=== PATIENT | male | born 1940 | race Caucasian/White ===

== ENCOUNTER 2019-04-20 09:39 | Emergency (ER) | payer MEDICARE, SELFPAY ==
--- NOTE | ~2019-04-20 | CT_ITS ---
EXAMINATION: CT abdomen pelvis w con DATE: 04/20/2019 12:24 INDICATION: Abdomen pain TECHNIQUE: Computed tomography (CT) of the abdomen and pelvis was performed with 100 cc Omnipaque 350 intravenous contrast. The dose-length product was 1389.24 mGy-cm. Automated exposure control and ite rative reconstruction technique were employed. COMPARISON: CT dated 09/11/2017. FINDINGS: There is bibasilar atelectasis/scarring. No significant pleural or pericardial effusion. Th ere is a laparoscopic adjustable gastric band. Fatty infiltration of the liver. Calcified granulomas of the spleen. There is atrophy of the pancreas. There are multiple simple and complicated cyst of th e left kidney with stable appearance to rim calcified cyst which is slightly exophytic from the left kidney posteriorly. Gallbladder is present. There is mild thickening of the distal aspect of the stom ach and proximal duodenum with mild surrounding fatty infiltration. Adrenal glands within normal limits. Nonobstructive bowel gas pattern. Small fat-containing umbilical hernia. No abnormal pelvic masses or fluid collections. Colonic diverticulosis without diverticuliti s. No free air or free fluid. Moderate degenerative changes of the hips and lumbar spine. IMPRESSION: 1. Mild thickening with subtle inflammatory change surrounding the distal aspect of the stomach and d uodenum, suspicious for gastritis/duodenitis, most likely infectious or inflammatory. Reviewed, dictated and finalized at location A. IMPRESSION: 1. Mild thickening with subtle inflammatory change surrounding the distal aspec t of the stomach and duodenum, suspicious for gastritis/duodenitis, most likely infectious or inflammatory.
--- NOTE | ~2019-04-20 | US_ITS ---
EXAMINATION: US right upper quadrant DATE: 04/20/2019 11:10 INDICATION: Right upper quadrant abdominal pain. TECHNIQUE: Multiple grayscale and Doppler ultrasound images of the abdomen were obtained. COMPARISON: CT abdomen and pelvis 09/11/2017 FINDINGS: The visualized portions of the head, body, and tail of the pancreas are normal. There is di ffuse hepatic steatosis. There is normal flow in main portal vein. The gallbladder is normal in size. No gallstones or gallbladder wall thickening. There was no sonographic Smith sign. The common duct is normal and measures 5 mm. IMPRESSION: 1. Diffuse hepatic steatosis. Reviewed, dictated and finalized at location A.
[2019-04-20 09:41] VITALS: BP 163/62; PULSE 98; RESP 20; TEMP 36.6; O2SAT 95
[2019-04-20 09:57] LABS: Basophils Absolute Auto 0.1 K/mm3 (0.0-0.1); Eosinophils Absolute Auto 0.2 K/mm3 (0-0.3); Eosinophils Percent Auto 1.7 % (0-4.4); Hematocrit 45.3 % (42.0-52.0); Immature Granulocyte Absolute 0.05 K/mm3 (0.00-0.031); Immature Granulocyte Percent A 0.4 % (0-0.5); Lymphocytes Absolute Auto 2.88 K/mm3 (0.9-3.2); Lymphocytes Percent Auto 20.4 % (18.3-44.2); Mean Corpuscular HGB Conc 33.1 g/dl (32-36); Mean Corpuscular Hemoglobin 31.8 pg (26-34); Mean Corpuscular Volume 96.2 fl (80-100); Mean Platelet Volume 10.4 fl (7.4-10.4); Monocytes Absolute Auto 0.8 K/mm3 (0.1-0.6); Monocytes Percent Auto 5.4 % (2.6-8.5); Neutrophils Absolute Auto 10.1 K/mm3 (1.3-6.7); Neutrophils Percent Auto 71.1 % (45.5-73.1); Platelet Count Result 275 k/mm3 (150-375); Red Blood Count 4.71 M/mm3 (4.6-6.20); Red Cell Distribution Width 12.9 % (11.5-14.5); White Blood Count 14.1 K/mm3 (4.5-10.0)
[2019-04-20 10:09] LABS: Alanine Aminotransferase 19 U/L (4-50); Albumin Level 4.1 g/dL (3.5-5.1); Alkaline Phosphatase 74 U/L (38-126); Aspartate Amino Transferase 22 U/L (17-59); Bilirubin,Total 0.6 mg/dL (0.2-1.3); Blood Urea Nitrogen 15 mg/dL (9-20); Calcium 9.8 mg/dL (8.4-10.2); Carbon Dioxide 28 mmol/L (22-30); Chloride 101 mmol/L (98-107); Estimated CRCL calculation 64 ml/min; Estimated Glomerular Filt Rate > 60; Glucose 197 mg/dL (75-110); Lipase 84 U/L (23-300); Potassium 4.1 mmol/L (3.4-5.0); Sodium 140 mmol/L (137-145)
--- NOTE | 2019-04-20 10:47 | ED.ABDPAIN ---
HPI - Abdominal Pain General Chief Complaint: Abdominal Pain Stated Complaint: Abd pain Time Seen by Provider: 04/20/19 10:41 Source: patient Mode of arrival: ambulatory Limitations: no limitations History of Present Illness HPI narrative: Pt is a 78 y/o male who presents to the ED with c/o intermittent RUQ ABD pain that started yesterday. He reports vomiting x2 yesterday. Pt denies nausea in the ED bed or a fever. He denies any aggravating or alleviating factors. Pt has a H/O a lap band surgery. He has not taken any pain medications. MD elicited complaint: abdominal pain Onset (ago): day(s) (1) Pain Consistency: intermittent Location: RUQ Exacerbating factors: nothing Relieving factors: nothing Associated symptoms: vomiting Related Data Home Medications Medication Instructions Recorded Confirmed fesoterodine [Toviaz] 4 mg PO DAILY 02/05/19 03/16/19 lisinopril 20 mg PO BID 02/05/19 03/16/19 magnesium 200 mg PO DAILY 02/05/19 03/16/19 omega 2-voa-ste-fish oil [Fish Oil] 1,000 cap PO DAILY 02/05/19 03/16/19 simvastatin 40 mg PO DAILY 02/05/19 03/16/19 Allergies Allergy/AdvReac Type Severity Reaction Status Date / Time citalopram Allergy Unknown Unknown Verified 03/16/19 08:30 hydrochlorothiazide Allergy Unknown Dizziness Verified 03/16/19 08:30 Review of Systems Review of Systems: All systems reviewed & are unremarkable except as noted in HPI and below Constitutional: Constitutional: Denies fever(s) Gastrointestinal: Gastrointestinal: Reports abdominal pain (RUQ), Denies diarrhea, Denies nausea and Reports vomiting PMF Past Medical History Medical History Benign prostatic hyperplasia with lower urinary tract symptoms Bronchitis Cerebrovascular accident (CVA) Chronic bilateral low back pain with bilateral sciatica Chronic fatigue Chronic obstructive pulmonary disease Essential (primary) hypertension Mixed hyperlipidemia GREG on CPAP Peripheral arterial disease Type 2 diabetes mellitus Vitamin D deficiency Surgical History Surgical History H/O cataract extraction H/O hernia repair History of appendectomy History of total knee replacement Social History Social History Smoking status: Never smoker Second hand tobacco smoke exposure: No Alcohol intake: never Exam Narrative: Exam Narrative: APPEARANCE: No acute distress, nontoxic, resting in bed HEENT: Normocephalic, atraumatic, OMM RESPIRATORY: No respiratory distress, clear to auscultation bilaterally with no rhonchi wheezing or rales CARDIOVASCULAR: RRR s murmur ABDOMINAL: Soft, nondistended, tender palpation in epigastric and right upper quadrant, no tenderness left upper quadrant, right lower quadrant left lower quadrant, no rebound or guarding MUSCULOSKELETAl: Moves all extremities. No clubbing, cyanosis or edema. NEURO: Awake and alert. Following commands, speech normal, no focal deficits SKIN:: Warm, dry. Normal Color PSYCHIATRIC: Normal affect/mood Course Course Emergency Course: Patient states that they are feeling much better at this time. States abdominal pain has resolved. Repeat abdominal exam shows the patient's abdomen to be soft and nontender. Discussed with patient results of workup and diagnosis. Discussed need for follow-up with primary care physician, reasons to return to the emergency department in proper use of medication. Patient understands and agrees to current treatment plan Consultations Consultation #1: Discussed case with Dr. Perdomo's PA and will follow up with pt. Date: 04/20/19 Time: 12:58 Vital Signs Vital signs: Vital Signs Temperature 97.9 F 04/20/19 09:41 Pulse Rate 98 04/20/19 09:41 Respiratory Rate 20 04/20/19 09:41 Blood Pressure 163/62 H 04/20/19 09:41 Pulse Oximetry 95 04/20/19 09:41 Temperature 97.9 F 04/20/19 09:41 Pulse Rate 88
[2019-04-20 11:06] LABS: Add Urine Microscopic? YES; Appearance Urine Cloudy (Clear); Bacteria Urine 1+ /hpf; Bilirubin Urine Negative (Negative); Blood Urine 3+ (Negative); Color Urine Yellow (Yellow); Glucose Urine UA Negative (Negative); Ketones Urine Trace mg/dL (Negative); Leukocyte Esterase Ur 2+ LEU/UL (Negative); Mucus Urine Few /lpf; Nitrate Urine Negative (Negative); Protein Urine 2+ mg/dL (Negative); RBC Urine >75 /hpf (0-2); Specific Grav Ur 1.027 (1.001-1.035); Squamous Epithelial Cell Urine Rare /hpf (Few); Urobilinogen Urine Negative mg/dL (<2.0); WBC Clumps Urine Present /HPF; WBC Urine >75 /hpf
[2019-04-20 12:03] VITALS: BP 162/97; PULSE 88; RESP 22; O2SAT 96
[2019-04-20 13:52] LABS: Lactic Acid Reflex 1.5 mmol/L (0.7-2.1)
[2019-04-20] MEDS: PANTOPRAZOLE SODIUM IV 40 MG VIAL IV PUSH (14:20)
[2019-04-20 14:25] VITALS: BP 154/80; PULSE 89; RESP 17; O2SAT 96
== END 2019-04-20 14:25 | disposition home or self-care (01) ==
PROVIDERS: Emergency Provider Emergency Medicine; PCP Family Medicine
DX: K29.70 Gastritis, unspecified, without bleeding (principal); N39.0 Urinary tract infection, site not specified; N40.1 Benign prostatic hyperplasia with lower urinary tract symptoms; Z86.73 Personal history of transient ischemic attack (TIA), and cerebral infarction without residual deficits; J44.9 Chronic obstructive pulmonary disease, unspecified; I10 Essential (primary) hypertension; E78.2 Mixed hyperlipidemia; G47.33 Obstructive sleep apnea (adult) (pediatric); E11.9 Type 2 diabetes mellitus without complications; E55.9 Vitamin D deficiency, unspecified; Z96.653 Presence of artificial knee joint, bilateral
CPT/HCPCS: 36415; 74177; 76705; 80053; 81001; 83605; 83690; 85025; 87077; 87086; 87088; 87186; 96365; 96375; 99284; A9270; C9113; J0131; J0696; Q9967

== ENCOUNTER 2019-06-10 09:57 | Outpatient (CLI) | payer MEDICARE, SELFPAY ==
--- NOTE | ~2019-06-10 | MR_ITS ---
EXAMINATION: MR brain/brain stem wo/w con DATE: 06/10/2019 11:17 INDICATION: Cerebral infarction, unspecified. Right arm numbness. TECHNIQUE: Magnetic resonance imaging (MRI) of the brain and brainstem was performed without and with 20 mL MultiHance intravenous contrast. Sequences included sagittal and axial T1-weighted FSE, axial diffusion-weighted FS EPI, axial T2*-weighted GRE, axial T2-weighted FLAIR Propeller, and axial T2-we ighted Propeller. Postcontrast sequences included axial and coronal T1-weighted FSE. Apparent diffusi on coefficient (ADC) maps were created. COMPARISON: Brain MRI 04/14/2018, 01/03/2017 FINDINGS: There are scattered areas of nonspecific increased T2-weighted signal intensity in the cere bral white matter and bucky. There is an old infarct involving the left internal capsule and left lent iform nucleus. There is no intracranial hemorrhage, acute infarction, or abnormal intracranial mass l esion. The ventricles are normal in size. There are likely changes of ocular lens replacement surgeri es. There is mild mucosal thickening in the ethmoid sinuses. The mastoid air cells are normal. IMPRESSION: 1. Old infarct involving the left internal capsule and left lentiform nucleus. 2. Stable mild nonspecific cerebral white matter disease and pontine disease, which likely represents chronic small vessel ischemic disease. Reviewed, dictated and finalized at location A. IMPRESSION: 1. Old infarct involving the left internal capsule and left lentiform nucleus. 2. Stable mild nonspecific cerebral white matter disease and pontine disease, w hich likely represents chronic small vessel ischemic disease.
[2019-06-10 10:47] LABS: Estimated Glomerular Filt Rate > 60
== END 2019-06-10 09:58 | disposition home or self-care (01) ==
PROVIDERS: PCP Family Medicine; Visit Provider Physician Assistant Medical
DX: I63.9 Cerebral infarction, unspecified (principal); R29.6 Repeated falls; R20.0 Anesthesia of skin; R20.2 Paresthesia of skin; R90.82 White matter disease, unspecified
CPT/HCPCS: 36415; 70553; A9577

== ENCOUNTER 2019-10-24 10:32 | Observation (INO) | payer MEDICARE, SELFPAY ==
[2019-10-24] VITALS (14 sets, daily range): BP systolic 142–208; BP diastolic 62–87; PULSE 70–102; RESP 18–20; TEMP 35.8–36.3; O2SAT 93–99; BMI 40.9
--- NOTE | ~2019-10-24 | XR_ITS ---
XR chest 2V 10/24/2019 11:11 Indication: Chest pain Procedure: AP and lateral views of the chest Comparison: Comparison to multiple prior studies sequentially, with oldest reviewed study dated 12/13. Findings: Heart size normal. Left basilar infiltrates may represent atelectasis, scarring and/or developing pne umonia. No pleural effusion. No acute osseous abnormality. The lungs are hyperinflated which is consi stent with, but not diagnostic of chronic obstructive pulmonary disease. There are degenerative coates es of the glenohumeral joints. Impression: 1: Left basilar infiltrates, differential diagnosis includes atelectasis, scarring and/or pneumonia. Reviewed, dictated and finalized at location A. Impression: 1: Left basilar infiltrates, differential diagnosis includes atelectasis, scarr ing and/or pneumonia.
--- NOTE | 2019-10-24 10:39 | ECG_ITS ---
Measurements Intervals [place] Rate: 101 P: -84 [place]: 117 QRS: -16 QRSD: 94 T: 91 QT: 345 QTc: 449 Interpretive Statements SINUS TACHYCARDIA ATRIAL COUPLET AND VENTRICULAR PREMATURE COMPLEX INCOMPLETE LEFT BUNDLE BRANCH BLOCK BORDERLINE ST-T WAVE ABNORMALITY- HIGH LATERAL LEADS BASELINE ARTIFACT- I, II ABNORMAL ECG Electronically Signed On 10-24-2019 11:45:45 CDT by Ciro Rg D.O.
[2019-10-24] MEDS: ASPIRIN 81 MG CHEWABLE TABLET 324 MG PO (10:46)
[2019-10-24 10:48] LABS: Basophils Absolute Auto 0.1 K/mm3 (0.0-0.1); Basophils Percent Auto 0.8 % (0.2-1.2); Eosinophils Absolute Auto 0.1 K/mm3 (0-0.3); Eosinophils Percent Auto 0.8 % (0-4.4); Hematocrit 43.4 % (42.0-52.0); Hemoglobin 14.7 g/dL (14.0-18.0); Immature Granulocyte Absolute 0.09 K/mm3 (0.00-0.031); Immature Granulocyte Percent A 0.6 % (0-0.5); Lymphocytes Absolute Auto 2.36 K/mm3 (0.9-3.2); Lymphocytes Percent Auto 14.5 % (18.3-44.2); Mean Corpuscular HGB Conc 33.9 g/dl (32-36); Mean Corpuscular Hemoglobin 32.5 pg (26-34); Mean Corpuscular Volume 95.8 fl (80-100); Mean Platelet Volume 10.4 fl (7.4-10.4); Monocytes Absolute Auto 0.7 K/mm3 (0.1-0.6); Monocytes Percent Auto 4.4 % (2.6-8.5); Neutrophils Absolute Auto 12.9 K/mm3 (1.3-6.7); Neutrophils Percent Auto 78.9 % (45.5-73.1); Platelet Count Result 297 k/mm3 (150-375); Red Blood Count 4.53 M/mm3 (4.6-6.20); White Blood Count 16.3 K/mm3 (4.5-10.0)
[2019-10-24 10:59] LABS: Anion Gap 11 mmol/L (8-16); Blood Urea Nitrogen 13 mg/dL (9-20); Calcium 9.3 mg/dL (8.4-10.2); Carbon Dioxide 26 mmol/L (22-30); Chloride 100 mmol/L (98-107); Estimated CRCL calculation 71 ml/min; Estimated Glomerular Filt Rate > 60; Glucose 208 mg/dL (75-110); Potassium 4.3 mmol/L (3.4-5.0); Sodium 137 mmol/L (137-145)
[2019-10-24 11:03] LABS: Partial Thromboplastin Time 27.8 SECONDS (22.3-36.8)
[2019-10-24 11:11] LABS: Troponin I 0.014 ng/mL (0.000-0.034)
[2019-10-24] MEDS: hydrALAZINE HCL 20 MG/ML VIAL 10 MG IV PUSH (12:22)
--- NOTE | 2019-10-24 12:48 | ED.CHESTPAIN ---
HPI - Chest Pain General Chief Complaint: Chest Pain Stated Complaint: chest pain Time Seen by Provider: 10/24/19 10:33 History of Present Illness HPI narrative: Patient is a 78-year-old male who presents ER with central chest pain. His pressure. Nonradiating. Began at 3 AM. Has been persistent. Associated with exertional shortness of breath that is worse than his baseline COPD. He is without abdominal pain. He reports one episode of yellow emesis. No alleviating factors for his chest discomfort. Reports he takes lisinopril 20 mg twice daily for his hypertension. Related Data Home Medications Medication Instructions Recorded Confirmed fesoterodine [Toviaz] 4 mg PO DAILY 02/05/19 10/24/19 simvastatin 40 mg PO DAILY 02/05/19 10/24/19 aspirin 325 mg tablet 325 mg PO DAILY 09/14/19 10/24/19 magnesium 200 mg tablet 400 mg PO BID tablet 09/14/19 10/24/19 pentoxifylline 400 mg 400 mg PO BID tablet 09/14/19 10/24/19 tablet,extended release cholecalciferol (vitamin D3) 50 mcg PO DAILY 10/24/19 10/24/19 Allergies Allergy/AdvReac Type Severity Reaction Status Date / Time citalopram Allergy Unknown Unknown Verified 10/24/19 10:40 hydrochlorothiazide Allergy Unknown Dizziness Verified 10/24/19 10:40 Review of Systems Review of Systems: All systems reviewed & are unremarkable except as noted in HPI and below Constitutional: Constitutional: Denies chills, Denies fever(s) and Denies weakness ENT: Denies nasal congestion and Denies sore throat Cardiovascular: Cardiovascular: Denies chest pain and Denies radiating jaw, neck or arm pain Gastrointestinal: Gastrointestinal: Denies abdominal pain, Reports nausea and Reports vomiting [facility] Past Medical History Medical History (Updated 10/24/19 @ 19:08 by Diogo Reese MD) Anxiety disorder, unspecified Benign prostatic hyperplasia with lower urinary tract symptoms Bronchitis Cerebrovascular accident (CVA) Chronic bilateral low back pain with bilateral sciatica Chronic fatigue Chronic obstructive pulmonary disease Congestive heart failure last echo February of 2019 impaired diastolic relaxation grade 1 estimated ejection fraction of 50-55%. Essential (primary) hypertension Fatigue Gout History of kidney stones Mixed hyperlipidemia GREG on CPAP Peripheral arterial disease Recurrent UTI Type 2 diabetes mellitus Vitamin D deficiency Surgical History Surgical History (Updated 10/24/19 @ 16:58 by Tammy Sanders NP) H/O cataract extraction H/O hernia repair H/O inguinal hernia repair History of appendectomy History of testicular surgery History of tonsillectomy History of total knee replacement History of total left knee replacement History of total right knee replacement S/P TURP Family History Family History (Updated 10/24/19 @ 17:00 by Tammy Sanders NP) Father Family history of diabetes mellitus in first degree relative Alzheimer's dementia Grandparent Diabetes mellitus Mother Alzheimer's dementia Social History Social History (Updated 10/24/19 @ 17:02 by Tammy Sanders NP) Social History: the patient is and lives in [facility] with his catherine stout. She is the POA. patient stated that he is a full code. He has 3 children. He used to work forearm [employer]. 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 He smoked up to 3 packs of cigarettes a day and quit 1990s. No alcohol marijuana or illicit drugs. Smoking packs per day: 1 Smoking cigarettes per day: 20.0 Smoking status: Former smoker Tobacco type: cigarettes Second hand tobacco smoke exposure: No Alcohol intake: never Substance use: never Substance use type: does not use Gender identity (if verbalized by the patient): Male Spiritual care concerns: No Exam Narrative: Exam Narrative: GENERAL: Well-appearing, well-nourished, and in no acute distress. HEAD: Normocephalic, atraumatic. ENT: Mucous membranes moist. CHEST: Clear to auscultatio
[2019-10-24 14:12] LABS: Troponin I 0.014 ng/mL (0.000-0.034)
--- NOTE | 2019-10-24 14:36 | ADMGEN ---
This patient, Evan Paige, was admitted to IMU Room 213-01. Patient/family oriented to hospital policies and general routines including ID bracelet, bed and alarms, visiting hours, pain management, procedures, bathroom and other care routines, personal items, smoking policy, room service/diet, and visiting hours. Valuables list has been completed. Information on how to activate the Rapid Response Team has been discussed. Patient/Family are encouraged to report perceived risks to care and to ask questions if they do not understand what they are told or what they should do.
--- NOTE | 2019-10-24 16:33 | PM.IMHP ---
H&P: HPI History of Present Illness Date/Time: 10/24/19 16:33 Chief complaint: chest pain,hypertension uncontrolled Narrative: Evan Paige is a 78 year old male Who has a history of congestive heart failure and sees Dr. gonzalez as his biometric screener. The patient stated that he woke up about 3:00 a.m. this morning was having some chest pressure. He said it felt like a band around his chest and it lasted to about 6:00 a.m. this morning. He was not any more short of breath than usual. The patient does have COPD and states that he short of breath with exertion any way. He denied any fever or chills. No cough. He said that his arms felt really heavy bilaterally as well. He did have an episode of yellow emesis. He also has high blood pressure but states that is controlled with medication. Troponins are negative x2. His chest x-ray was read by radiology as atelectasis versus Pneumonia. Left basilar infiltrates. His white count was noted to be 16.3. EKG was read as a sinus tachycardia. Atrial couplet and ventricular premature complex. His rate is is regular now. He was given an aspirin in the emergency room as well as hydralazine for his blood pressure. His blood pressure was 208/87 and is now 149/72 with a hydralazine. Date of service is 10/24/2019 Review of Systems Review of Systems: All systems reviewed & are unremarkable except as noted in HPI and below Constitutional: Constitutional: Reports as per HPI and Reports no additional constitutional complaints Eyes: Eyes: Reports as per HPI and Reports no additional eye complaints ENT: Reports system reviewed and no additional complaints, except as documented and Reports Normal hearing present Cardiovascular: Cardiovascular: Reports no additional cardiovascular complaints Respiratory: Respiratory: Reports no additional respiratory complaints and Reports no additional respiratory complaints Gastrointestinal: Gastrointestinal: Reports as per HPI and Reports no additional gastrointestinal complaints Musculoskeletal: Musculoskeletal: Reports no additional musculoskeletal complaints Integumentary/Breasts: Skin/Breast: Reports system reviewed and no additional complaints, except as docu and Reports as per HPI Neurologic: Reports system reviewed and no additional complaints, except as documented, Reports as per HPI and Reports Normal hearing present Psychiatric: Psychiatric: Reports no additional psychiatric complaints and Reports as per HPI Endocrine: Endocrine: Reports no additional endocrine complaints Hematologic/Lymphatic: Hematologic/Lymphatic: Reports no additional hematologic/lymphatic complaints Allergic/Immunologic: Allergic/Immunologic: Reports no additional allergic/immunologic complaints [facility] Past Medical History Medical History (Updated 10/24/19 @ 17:09 by Tammy Sanders NP) Anxiety disorder, unspecified Benign prostatic hyperplasia with lower urinary tract symptoms Bronchitis Cerebrovascular accident (CVA) Chronic bilateral low back pain with bilateral sciatica Chronic fatigue Chronic obstructive pulmonary disease Congestive heart failure last echo February of 2019 impaired diastolic relaxation grade 1 estimated ejection fraction of 50-55%. Essential (primary) hypertension Fatigue Gout History of kidney stones Mixed hyperlipidemia GREG on CPAP Peripheral arterial disease Recurrent UTI Type 2 diabetes mellitus Vitamin D deficiency Surgical History Surgical History (Updated 10/24/19 @ 16:58 by Tammy Sanders NP) H/O cataract extraction H/O hernia repair H/O inguinal hernia repair History of appendectomy History of testicular surgery History of tonsillectomy History of total knee replacement History of total left knee replacement History of total right knee replacement S/P TURP Family History Family History (Updated 10/24/19 @ 17:00 by Tammy Sanders NP) Father Family history of diabetes mellitus in first degree relative Alzheimer's jun
[2019-10-24 17:17] LABS: Troponin I 0.015 ng/mL (0.000-0.034)
--- NOTE | 2019-10-24 17:38 | PM.CNCAR ---
Assessment and Plan Assessment and plan (1) Chest pain: Code(s): R07.9 - Chest pain, unspecified Status: Acute Assessment and Plan: Resolved. He is ruled out for TX by series of troponins and EKG. He is at risk for CAD given high risk with PAD and DM. Start Coreg for antianginal purpose. On aspirin, lisinopril and Simvastatin. If no more chest pains and BP is controlled tomorrow, anticipate d/c home for outpatient stress test. (2) GREG on CPAP: Code(s): G47.33 - Obstructive sleep apnea (adult) (pediatric); Z99.89 - Dependence on other enabling machines and devices Status: Chronic (3) Mixed hyperlipidemia: Code(s): E78.2 - Mixed hyperlipidemia Status: Acute (4) Essential (primary) hypertension: Code(s): I10 - Essential (primary) hypertension Status: Chronic Assessment and Plan: High. Start Coreg 3.125 mg BID. (5) Chronic obstructive pulmonary disease: Code(s): J44.9 - Chronic obstructive pulmonary disease, unspecified Status: Chronic (6) Peripheral arterial disease: Code(s): I73.9 - Peripheral vascular disease, unspecified Status: Acute (7) Obesity: Code(s): E66.9 - Obesity, unspecified Status: Acute History of Present Illness History of Present Illness Consult date/time: 10/24/19 17:38 Reason for consult: Chest pain and hypertension. Patient is a 78 yr old man who is my regular cardiology patient who presents to ED by car for chest pain. He has a history of GREG on CPAP, PAD, hypertension, dyslipidemia, DM, COPD, obesity. States that he was awake at 3 am this morning then realized he felt pressure/squeezing sensation of his chest that lasted until 6 am. He then came to ED for evaluation. No more chest pain since. Mild swelling of both legs. His BP was high at 208/57 mmHg. Troponins are negative x 3 sets. EKG shows some PAC's and PVC but no significant ST changes. CXR shows left basilar infiltrate, could be atelectasis or pneumonia with elevated WBC at 16.3. Normally he has calf pain after walking about 1/2 block especially in left leg. Denies chest pain, orthopnea, palpitations. Cardiovascular Procedures Echo/MUGA:: Echo (EF 50-55%, mod LVH, grade I diatolic dysfunction (E/E' 17), mild biatrial enlargement, mod MAC, mild AI.) - 03/04/2018 Electrophysiology:: EKG (Sinus rhythm, PVC's, incomplete LBBB, borderline ST-T wave in lateral leads.) - 03/17/2018 Stress Tests:: 06/10/19 MRI brain: Old infarcts of left internal capsule and left lentiform nucleus. 05/10/19 RUQ ultrasound: Diffuse hepatic steatosis. Carotid Duplex (<50% bilateral ICA.) - 04/09/2018 ROSAURA (ROSAURA with arterial waveforms shows 0.94 and 0.89 on right and left legs respectively.) - 03/20/2018 Sleep Study (GREG.) - 02/26/2018 Reason For Visit: chest pain,hypertension uncontrolled Review of Systems Review of Systems: All systems reviewed & are unremarkable except as noted in HPI and below Constitutional: Constitutional: Reports as per HPI and Denies chills Cardiovascular: Cardiovascular: Reports as per HPI, Reports chest pain, Reports leg edema and Denies lightheadedness Respiratory: Respiratory: Reports as per HPI Gastrointestinal: Gastrointestinal: Reports as per HPI and Denies abdominal pain Genitourinary: Genitourinary: Reports as per HPI and Denies dysuria Musculoskeletal: Musculoskeletal: Reports as per HPI Neurologic: Reports as per HPI, Denies dizziness and Denies syncope [facility] Past Medical History Medical History (Updated 10/24/19 @ 17:09 by Tammy Sanders NP) Anxiety disorder, unspecified Benign prostatic hyperplasia with lower urinary tract symptoms Bronchitis Cerebrovascular accident (CVA) Chronic bilateral low back pain with bilateral sciatica Chronic fatigue Chronic obstructive pulmonary disease Congestive heart failure last echo February of 2019 impaired diastolic relaxation grade 1 estimated ejection fraction of 50-55%. Essential (primary)
[2019-10-24] MEDS: PENTOXIFYLLINE 400 MG TABCR PO (18:29)
[2019-10-24] MEDS: MAGNESIUM OXIDE 400 MG TABLET PO (18:29)
[2019-10-24] MEDS: INSULIN ASPART (*BKC) 100 UNITS/ML SUB-Q (18:29)
[2019-10-24] MEDS: NAPROXEN 500 MG TABLET PO (18:29)
[2019-10-24 18:33] LABS: Glucose Point of Care 307 (65-105)
[2019-10-24 20:19] LABS: Glucose Point of Care 196 (65-105)
[2019-10-24] MEDS: carvediloL 3.125 MG TABLET PO (22:13)
[2019-10-24] MEDS: lisinopriL 20 MG TABLET PO (22:13)
[2019-10-24] MEDS: MELATONIN 3 MG TABLET PO (22:18)
[2019-10-25] VITALS (13 sets, daily range): BP systolic 139–152; BP diastolic 54–69; PULSE 68–84; RESP 16–24; TEMP 35.9–36.2; O2SAT 96–98
[2019-10-25 04:54] LABS: Basophils Absolute Auto 0.1 K/mm3 (0.0-0.1); Eosinophils Absolute Auto 0.3 K/mm3 (0-0.3); Eosinophils Percent Auto 2.5 % (0-4.4); Hematocrit 36.6 % (42.0-52.0); Hemoglobin 12.3 g/dL (14.0-18.0); Immature Granulocyte Absolute 0.06 K/mm3 (0.00-0.031); Immature Granulocyte Percent A 0.5 % (0-0.5); Lymphocytes Percent Auto 19.1 % (18.3-44.2); Mean Corpuscular HGB Conc 33.6 g/dl (32-36); Mean Corpuscular Hemoglobin 32.2 pg (26-34); Mean Corpuscular Volume 95.8 fl (80-100); Mean Platelet Volume 10.4 fl (7.4-10.4); Monocytes Absolute Auto 0.7 K/mm3 (0.1-0.6); Monocytes Percent Auto 6.4 % (2.6-8.5); Neutrophils Absolute Auto 7.7 K/mm3 (1.3-6.7); Neutrophils Percent Auto 70.5 % (45.5-73.1); Platelet Count Result 238 k/mm3 (150-375); Red Blood Count 3.82 M/mm3 (4.6-6.20); Red Cell Distribution Width 12.9 % (11.5-14.5)
[2019-10-25 05:21] LABS: Alanine Aminotransferase 13 U/L (4-50); Albumin Level 3.3 g/dL (3.5-5.1); Alkaline Phosphatase 64 U/L (38-126); Anion Gap 7 mmol/L (8-16); Aspartate Amino Transferase 20 U/L (17-59); Bilirubin,Total 0.5 mg/dL (0.2-1.3); Blood Urea Nitrogen 14 mg/dL (9-20); Calcium 8.8 mg/dL (8.4-10.2); Carbon Dioxide 26 mmol/L (22-30); Chloride 102 mmol/L (98-107); Estimated CRCL calculation 78 ml/min; Estimated Glomerular Filt Rate > 60; Glucose 194 mg/dL (75-110); Magnesium 1.5 mg/dL (1.6-2.3); Potassium 3.9 mmol/L (3.4-5.0); Sodium 135 mmol/L (137-145)
[2019-10-25 08:16] LABS: Glucose Point of Care 164 (65-105)
[2019-10-25] MEDS: MAGNESIUM SULF 2 GM/WATER 50ML 2 GM/50 ML BAG IVPB (08:35)
[2019-10-25] MEDS: GLIMEPIRIDE 2 MG TABLET PO (08:36)
[2019-10-25] MEDS: ASPIRIN 325 MG TABLET PO (08:37)
[2019-10-25] MEDS: allopurinoL 300 MG TABLET PO (08:37)
[2019-10-25] MEDS: lisinopriL 20 MG TABLET PO (08:38)
[2019-10-25] MEDS: CHOLECALCIFEROL 1,000 UNITS TABLET 2000 UNITS PO (08:38)
[2019-10-25] MEDS: MAGNESIUM OXIDE 400 MG TABLET PO (08:39)
[2019-10-25] MEDS: NAPROXEN 500 MG TABLET PO (08:39)
[2019-10-25] MEDS: PENTOXIFYLLINE 400 MG TABCR PO (08:39)
[2019-10-25] MEDS: SIMVASTATIN 20 MG TABLET 40 MG PO (08:40)
--- NOTE | 2019-10-25 09:11 | PM.PNCARD ---
Progress Note: A&P Assessment and Plan (1) Chest pain: Code(s): R07.9 - Chest pain, unspecified Status: Acute Assessment and Plan: Resolved. He is ruled out for HI by series of troponins and EKG. He is at risk for CAD given high risk with PAD and DM. Started Coreg and Isosorbide mononitrate for antianginal purpose. On aspirin, lisinopril and Simvastatin. Discharge home from cardiology standpoint and f/u with me in 1 week and will need outpatient stress test. (2) Mixed hyperlipidemia: Code(s): E78.2 - Mixed hyperlipidemia Status: Acute (3) Essential (primary) hypertension: Code(s): I10 - Essential (primary) hypertension Status: Chronic Assessment and Plan: High. Increase Coreg 6.25 mg BID and start Isosorbide mononitrate 30 mg daily. (4) Chronic obstructive pulmonary disease: Code(s): J44.9 - Chronic obstructive pulmonary disease, unspecified Status: Chronic (5) Peripheral arterial disease: Code(s): I73.9 - Peripheral vascular disease, unspecified Status: Acute (6) Obesity: Code(s): E66.9 - Obesity, unspecified Status: Acute Subjective Date/time seen: 10/25/19 09:11 No more chest pains. No sob. Exam Const: General: comfortable and no acute distress Neck: Neck: no JVD Carotids: no bruits Resp: Auscultation: clear to auscultation bilaterally, no crackles, no rales, no rhonchi and no wheezes Cardio: Rate: regular rate Rhythm: regular rhythm Heart sounds: no murmurs GI: Inspection: non-distended Neuro: Speech: normal speech Extrem: Right lower extremity: no edema Left lower extremity: no edema Objective Data Vital Signs Vital Signs: Vital Signs - 24 hr 10/24/19 10:35 10/24/19 13:10 10/24/19 13:12 Temperature 97.3 F L Pulse Rate 102 H 86 87 Respiratory Rate 18 20 Blood Pressure 208/87 H 156/71 H Pulse Oximetry 96 96 10/24/19 13:13 10/24/19 14:36 10/24/19 16:00 Temperature 97.0 F L Pulse Rate 86 85 85 Respiratory Rate 18 20 Blood Pressure 156/71 H 142/62 H Pulse Oximetry 98 99 10/24/19 16:16 10/24/19 18:00 10/24/19 19:50 Temperature 96.4 F L 97.1 F L Pulse Rate 86 100 79 Respiratory Rate 20 20 Blood Pressure 149/72 H 154/64 H Pulse Oximetry 96 96 10/24/19 20:00 10/24/19 21:30 10/24/19 22:00 Temperature Pulse Rate 79 73 70 Respiratory Rate 20 Blood Pressure Pulse Oximetry 96 93 10/24/19 22:13 10/24/19 23:44 10/25/19 00:00 Temperature 96.8 F L Pulse Rate 72 77 81 Respiratory Rate 20 16 Blood Pressure 158/75 H Pulse Oximetry 96 97 10/25/19 02:00 10/25/19 03:22 10/25/19 03:25 Temperature 96.7 F L Pulse Rate 72 81 81 Respiratory Rate 16 16 Blood Pressure 151/63 H Pulse Oximetry 97 97 10/25/19 04:00 10/25/19 05:28 10/25/19 08:56 Temperature 97.2 F L Pulse Rate 81 68 69 Respiratory Rate 16 Blood Pressure 139/54 L Pulse Oximetry 96 Intake/Output Intake/Output: Intake & Output 10/22/19 10/23/19 10/24/19 10/25/19 23:59 23:59 23:59 23:59 Intake Total 490 440 Output Total 200 Balance 490 240 Meds/Results Medications: Active Medications Generic Name Dose Route Start Last Admin Trade Name Freq PRN Reason Stop Dose Admin Acetaminophen 650 mg 10/24/19 13:09 Tylenol Tablet PO Q4H PRN Mild Pain (1-3) or Fever Hydrocodone Bitart/Acetaminophen 1 tab 10/24/19 13:09 [place] 5-325 Mg PO Q4H PRN Pain Rated 4-6 Allopurinol 300 mg 10/25/19 09:00 10/25/19 08:37 Zyloprim PO 300 mg DAILY ALLIE Administration Aspirin 325 mg 10/25/19 09:00 10/25/19 08:37 Aspirin PO 325 mg DAILY ALLIE Administration Carvedilol 6.25 mg 10/25/19 09:00 Coreg PO Q12HR ALLIE Dextrose 12.5 gm 10/24/19 16:40 Dextrose 50% Syringe IV PUSH PRN PRN Hypoglycemia Protocol Glimepiride 2 mg 10/25/19 08:00 10/25/19 08:36 Amaryl PO 2 mg DAILY@0800 ALLIE
[2019-10-25 13:22] LABS: Glucose Point of Care 187 (65-105)
[2019-10-25] MEDS: carvediloL 6.25 MG TABLET PO (14:06)
[2019-10-25] MEDS: ISOSORBIDE MONONITRATE 30 MG TAB.ER.24H PO (14:07)
--- NOTE | 2019-10-25 17:48 | PM.DS ---
DS: Admitting Diagnosis Admitting Diagnosis Admitting Diagnosis: chest pain,hypertension uncontrolled DS: Discharge Diagnosis Discharge Diagnosis (1) Chest pain: Code(s): R07.9 - Chest pain, unspecified Status: Acute Assessment and Plan: troponins are negative . Patient had chest pain for about 3 hours. His troponins are negative and his chest pain has resolved. He has no more short of breath than normal. He felt a pressure squeezing around the lower part of his chest for 3 hours. The patient is currently on an aspirin. cardiology so added beta-yves and nitrate and will follow-up 1 week with stress testing (2) Congestive heart failure: Code(s): I50.9 - Heart failure, unspecified Status: Chronic Assessment and Plan: Continue with lisinopril . He has grade 1 diastolic dysfunction. . He has no edema and he is chronically short of breath. Specially with exertion. (3) Mixed hyperlipidemia: Code(s): E78.2 - Mixed hyperlipidemia Status: Acute Assessment and Plan: Continue with simvastatin (4) GREG on CPAP: Code(s): G47.33 - Obstructive sleep apnea (adult) (pediatric); Z99.89 - Dependence on other enabling machines and devices Status: Chronic Assessment and Plan: the patient brought his home CPAP machine and continue to use on discharge (5) Chronic obstructive pulmonary disease: Code(s): J44.9 - Chronic obstructive pulmonary disease, unspecified Status: Chronic Assessment and Plan: p.r.n. inhaler (6) Cerebrovascular accident (CVA): Code(s): I63.9 - Cerebral infarction, unspecified Status: Acute Assessment and Plan: aspirin, cholesterol med, and blood pressure control (7) Type 2 diabetes mellitus: Qualifiers: Diabetes mellitus prison insulin use: without intermediate designer use Diabetes mellitus complication status: without complication Qualified Code(s): E11.9 - Type 2 diabetes mellitus without complications Code(s): E11.9 - Type 2 diabetes mellitus without complications Status: Chronic Assessment and Plan: Accu-Cheks AC and HS. while inpatient and continue his oral hypoglycemics on discharge (8) Gout: Code(s): M10.9 - Gout, unspecified Status: Chronic Assessment and Plan: Continue with allopurinol (9) Benign prostatic hyperplasia with lower urinary tract symptoms: Code(s): N40.1 - Benign prostatic hyperplasia with lower urinary tract symptoms Status: Chronic Assessment and Plan: he is just on Toviaz and will continue on discharge (10) Essential (primary) hypertension: Code(s): I10 - Essential (primary) hypertension Status: Chronic Assessment and Plan: Continue with lisinopril. The patient had elevated blood pressure and was given hydralazine in the emergency room. Which the blood pressure responded and will continue beta-yves with Coreg 6.25 Q 12 and nitrate on discharge DS: Summary Hospital Course Hospital Course: 78-year-old hypertensive type 2 diabetic admitted with chest pressure and elevated blood pressure. Troponins were negative. Beta-yves and nitrate were added to his regime and he will follow-up with cardiology in 1 week for outpatient stress testing. [place] [id number] but repeat the next morning was 11 thought secondary to stress not infectious Time Spent with Patient Time attestation: Total time spent providing and/or coordinating discharge services: 35 minutes Exam Narrative: Exam Narrative: condition on discharge blood pressure 152/70 pulse 74 regular saturating 98% on room air afebrile lungs clear CV regular rate rhythm abdomen soft nontender obese extremities without edema he was up and about with no further chest discomfort and will be discharged on the beta-yves and nitrate to return [address] Rg for stress test DS: Data
== END 2019-10-25 14:30 | disposition home or self-care (01) ==
LOC: ANHED 13:16 → ANHIMU 16:35
PROVIDERS: Nurse Practitioner; Admitting Provider Family Medicine; Emergency Provider Emergency Medicine; PCP Family Medicine; Visit Provider Internal Medicine
DX: R07.9 Chest pain, unspecified (principal); I11.0 Hypertensive heart disease with heart failure; I50.32 Chronic diastolic (congestive) heart failure; J44.9 Chronic obstructive pulmonary disease, unspecified; E11.51 Type 2 diabetes mellitus with diabetic peripheral angiopathy without gangrene; E55.9 Vitamin D deficiency, unspecified; G47.33 Obstructive sleep apnea (adult) (pediatric); E78.2 Mixed hyperlipidemia; F41.9 Anxiety disorder, unspecified; Z86.73 Personal history of transient ischemic attack (TIA), and cerebral infarction without residual deficits; M10.9 Gout, unspecified; Z87.442 Personal history of urinary calculi; Z96.653 Presence of artificial knee joint, bilateral; Z87.891 Personal history of nicotine dependence; Z79.4 Long term (current) use of insulin
CPT/HCPCS: 36415; 71046; 80048; 80053; 83735; 84443; 84484; 85025; 85610; 85730; 93005; 96374; 96375; 99285; A9270; G0378; J0360; J1815; J3475

== ENCOUNTER 2019-11-18 07:46 | Outpatient (CLI) | payer MEDICARE, SELFPAY ==
--- NOTE | ~2019-11-18 | NM_ITS ---
EXAMINATION: NM delores stress w perfusion DATE: 11/18/2019 10:50 INDICATION: Shortness of breath TECHNIQUE: Rest images were obtained following intravenous administration of 9 mCi Tc99m tetrofosmin (Myoview). The patient was infused intravenously with Lexiscan (Regadenoson). Then, 29.3 mCi Tc99m te trofosmin (Myoview) was administered intravenously, and stress images were obtained. Data was reconst ructed into short axis and horizontal and vertical long axis SPECT images. Gated SPECT images were al so obtained. COMPARISON: None. FINDINGS: Fixed perfusion defect consistent with infarct of mild to moderate severity involving the a pical, apical septal, mid inferoseptal, apical inferior and mid inferior segments. Mild reversible is chemia involving the basilar inferior and mid inferolateral segments. There is normal left ventricul ar chamber size, wall motion and ejection fraction. Left ventricular ejection fraction measures 64%. IMPRESSION: 1. Mild reversible ischemia in the inferobasilar and mid inferolateral segments at the margins of a l arger mild to moderate severity nonreversible infarct involving the primarily the right coronary tika ry vascular distribution as detailed above. 2. Left ventricular ejection fraction measuring 64%. Reviewed, dictated and finalized at location A. IMPRESSION: 1. Mild reversible ischemia in the inferobasilar and mid inferolateral segments at the margins of a larger mild to moderate severity nonreversible infarct inv olving the primarily the right coronary artery vascular distribution as detaile d above. 2. Left ventricular ejection fraction measuring 64%.
--- NOTE | 2019-11-18 09:32 | EST_ITS ---
Patient Info Name: Evan Paige Age: 79 years : 1940 Gender: Male Ht: 68 in Wt: 275 lbs BSA: 2.51 m2 Exam Date: 11/18/2019 9:34 AM Exam Location: [facility] Stress Patient Status: Outpatient Admit Date: 11/18/2019 Staff Ordering Physician: Ciro Rg DO Attending Provider: Ciro Rg DO Exercise Technologist: Keaton Smith RDCS, RT Exercise Physician: Ciro Rg DO Exam Type: CA stress delores w NM Study Info A regadenoson stress test was performed. Summary 1. 1. Negative lexiscan stress test for ischemic ST changes by ECG criteria. 2. 2. Baseline hypertension. 3. 3. Nuclear scan to follow and will be reported separately. Please correlate with it. 4. 4. Patient informed of the above results. Protocol: Lexiscan Stress ECG Details Stage: REST Duration (min): 2 min : 30 sec HR (bpm): 67 SBP (mmHg): 156 DBP (mmHg): 72 Stage: REST Duration (min): 4 min : 13 sec HR (bpm): 69 SBP (mmHg): 156 DBP (mmHg): 72 Stage: STAGE 1 Duration (min): 1 min : 0 sec HR (bpm): 76 SBP (mmHg): 156 DBP (mmHg): 72 Stage: RECOVERY Duration (min): 1 min : 0 sec HR (bpm): 82 SBP (mmHg): 156 DBP (mmHg): 72 Stage: RECOVERY Duration (min): 2 min : 0 sec HR (bpm): 81 SBP (mmHg): 167 DBP (mmHg): 40 Stage: RECOVERY Duration (min): 3 min : 0 sec HR (bpm): 80 SBP (mmHg): 166 DBP (mmHg): 45 Stage: RECOVERY Duration (min): 3 min : 17 sec HR (bpm): 78 SBP (mmHg): 166 DBP (mmHg): 45 Rest HR: 69 bpm Peak HR: 84 bpm Rest Sys BP: 156 mmHg Peak Sys BP: 167 mmHg Max Pred HR: 141 bpm % Max Pred HR: 60 % Target HR: 120 bpm Max RPP: 14,028 bpm*mmHg Termination Reason: Completed protocol Cardiac Symptoms: Shortness of breath, Headache Total Time: 1 min : 0 sec Rest Jules BP: 72 mmHg Peak Jules BP: 40 mmHg Total Dose: 0.4 mg Resting ECG Sinus rhythm, ILBBB. Stress ECG No ST changes. Arrhythmias None. Report Signatures
== END 2019-11-18 07:47 | disposition home or self-care (01) ==
PROVIDERS: PCP Family Medicine; Visit Provider Internal Medicine Cardiovascular Disease
DX: R07.9 Chest pain, unspecified (principal); I10 Essential (primary) hypertension
CPT/HCPCS: 78452; 93017; A9502; J2785

== ENCOUNTER 2019-12-02 03:59 | Outpatient (CLI) | payer MEDICARE, SELFPAY ==
[2019-12-02 19:05] LABS: SARS-CoV-2 RNA PCR Negative
== END 2019-12-02 04:00 | disposition home or self-care (01) ==
LOC: ANHCOVIDDT 03:59
PROVIDERS: PCP Family Medicine; Visit Provider Specialist
DX: Z01.812 Encounter for preprocedural laboratory examination (principal); Z20.828 Contact with and (suspected) exposure to other viral communicable diseases
CPT/HCPCS: 87635; C9803; U0003

== ENCOUNTER 2019-12-04 00:58 | Day surgery (SDC) | payer MEDICARE, SELFPAY ==
[2019-12-03 10:11] VITALS: BMI 42.2
[2019-12-04] VITALS (16 sets, daily range): BP systolic 134–188; BP diastolic 61–98; PULSE 74–90; RESP 13–20; TEMP 36.4; O2SAT 93–98
[2019-12-04 09:17] LABS: Basophils Absolute Auto 0.1 K/mm3 (0.0-0.1); Basophils Percent Auto 1.1 % (0.2-1.2); Eosinophils Absolute Auto 0.3 K/mm3 (0-0.3); Eosinophils Percent Auto 2.9 % (0-4.4); Hematocrit 38.7 % (42.0-52.0); Hemoglobin 13.2 g/dL (14.0-18.0); Immature Granulocyte Absolute 0.04 K/mm3 (0.00-0.031); Immature Granulocyte Percent A 0.4 % (0-0.5); Lymphocytes Absolute Auto 2.01 K/mm3 (0.9-3.2); Lymphocytes Percent Auto 19.7 % (18.3-44.2); Mean Corpuscular HGB Conc 34.1 g/dl (32-36); Mean Corpuscular Hemoglobin 32.6 pg (26-34); Mean Corpuscular Volume 95.6 fl (80-100); Mean Platelet Volume 10.2 fl (7.4-10.4); Monocytes Absolute Auto 0.6 K/mm3 (0.1-0.6); Monocytes Percent Auto 5.7 % (2.6-8.5); Neutrophils Absolute Auto 7.2 K/mm3 (1.3-6.7); Neutrophils Percent Auto 70.2 % (45.5-73.1); Platelet Count Result 212 k/mm3 (150-375); Red Blood Count 4.05 M/mm3 (4.6-6.20); Red Cell Distribution Width 12.5 % (11.5-14.5); White Blood Count 10.2 K/mm3 (4.5-10.0)
[2019-12-04 09:28] LABS: Prothrombin Time 13.2 Seconds (11.1-14.7)
[2019-12-04 09:30] LABS: Anion Gap 9 mmol/L (8-16); Blood Urea Nitrogen 17 mg/dL (9-20); Calcium 9.3 mg/dL (8.4-10.2); Carbon Dioxide 27 mmol/L (22-30); Chloride 101 mmol/L (98-107); Estimated CRCL calculation 68 ml/min; Estimated Glomerular Filt Rate > 60; Glucose 155 mg/dL (75-110); Potassium 4.3 mmol/L (3.4-5.0); Sodium 137 mmol/L (137-145)
--- NOTE | 2019-12-04 09:54 | WPDMODSED ---
Moderate Sedation Note-Pt Data Patient Data Diagnosis: Exertional dyspnea morbid obesity hypertension diabetes peripheral arterial disease abnormal nuclear stress test suggesting previous MN Present Complaint: this is a 79-year-old man who has been reporting chronic symptoms of exertional dyspnea. Apparently about a month ago he visited the emergency room with some chest pain and following that had nuclear stress testing done. The results are most consistent with a previous inferior infarction with some padmini-infarction ischemia at the margins of the defect. He is not reporting chest pain. In this setting an angiogram has been recommended. Comorbidities are as detailed above Procedure to be performed/Plan: left heart catheterization Allergies Allergy/AdvReac Type Severity Reaction Status Date / Time citalopram Allergy Unknown Unknown Verified 11/23/19 09:56 hydrochlorothiazide Allergy Unknown Dizziness Verified 11/23/19 09:56 Home Medications Medication Instructions Recorded Confirmed Type Toviaz 4 mg PO DAILY 02/05/19 12/03/19 History simvastatin 40 mg PO DAILY 02/05/19 12/03/19 History naproxen 500 mg tablet 500 mg PO BID #60 tablet 09/05/19 12/03/19 Rx magnesium 200 mg tablet 400 mg PO BID tablet 09/14/19 12/03/19 History pentoxifylline 400 mg 400 mg PO BID tablet 09/14/19 12/03/19 History tablet,extended release allopurinol 300 mg tablet 300 mg PO DAILY #90 tablet 10/12/19 12/03/19 Rx exenatide microspheres 2 mg/0.65 2 mg SUB-Q Q7D #4 each 10/12/19 12/03/19 Rx mL subcutaneous pen injector cholecalciferol (vitamin D3) 50 mcg PO DAILY 10/24/19 12/03/19 History metformin 500 mg tablet,extended 2,000 mg PO DAILY #360 tablet 10/28/19 12/03/19 Rx release 24 hr glimepiride 2 mg tablet See Rx Instructions .ROUTE 11/02/19 12/03/19 Rx .COMPLEX #90 tablet lisinopril 20 mg tablet See Rx Instructions .ROUTE 11/02/19 12/03/19 Rx .COMPLEX #180 tablet omega-3 fatty acids 1,000 mg 1,000 mg PO BID 11/03/19 12/03/19 History capsule carvedilol 6.25 mg tablet 6.25 mg PO Q12HR #60 tablet 11/10/19 12/03/19 Rx memantine 5 mg tablet 5 mg PO QAM 11/10/19 12/03/19 History aspirin 81 mg tablet,delayed 81 mg PO DAILY 11/23/19 12/03/19 History release Current Medications: Active Medications Sodium Chloride (Normal Saline Iv) 500 mls @ 100 mls/hr IV CONT .Q5H ALLIE Sedation/Anesthesia: No previous sedation/anesthesia problems (including family history). [facility] Past Medical History Medical History (Updated 11/23/19 @ 10:16 by Ciro Rg DO) Anxiety disorder, unspecified Benign prostatic hyperplasia with lower urinary tract symptoms Blister of toe Bronchitis Cerebrovascular accident (CVA) Chronic bilateral low back pain with bilateral sciatica Chronic fatigue Chronic obstructive pulmonary disease Congestive heart failure last echo February of 2019 impaired diastolic relaxation grade 1 estimated ejection fraction of 50-55%. Essential (primary) hypertension Fatigue Gout History of kidney stones Mixed hyperlipidemia GREG on CPAP Peripheral arterial disease Recurrent UTI Type 2 diabetes mellitus Vitamin D deficiency Surgical History Surgical History H/O cataract extraction H/O hernia repair H/O inguinal hernia repair History of appendectomy History of testicular surgery History of tonsillectomy History of total knee replacement History of total left knee replacement History of total right knee replacement S/P TURP Family History Family History Father Family history of diabetes mellitus in first degree relative Alzheimer's dementia Grandparent Diabetes mellitus Mother Alzheimer's dementia Social History Social History Social History: the patient is and lives in [facility] with his catherine stout. She is the POA. patient stated that he is a
--- NOTE | 2019-12-04 10:52 | WPDCARDPROC ---
Cardiac Cath Procedure Note Date of procedure:: 12/04/19 Performing physician:: Walt Demarco MD Indication:: Abnormal nuclear stress test rule out CAD Brief clinical history:: this is a 79-year-old man not previously known to have coronary disease. He does have morbid obesity hypertension diabetes peripheral vascular disease and chronic shortness of breath with a previous history of tobacco abuse. Because of an abnormal nuclear stress test suggesting an inferior defect angiography was recommended Procedure Procedure performed:: left heart catheterization with coronary angiography and left ventriculography Sedation/Medication given:: fentanyl 50 mg Versed 2 mg case start time 10:20 a.m. case end time 10:41 a.m. sedation provided by Libia Gamez RN, trained observer Access site:: right femoral Estimated blood loss:: 15-20 cc Procedure note:: patient was brought to the cardiac catheterization lab in the postabsorptive state the right femoral triangle was prepped and draped in the usual sterile fashion. A tape was used to retract the pannus cephalad. 1% lidocaine was infiltrated locally. Following this the right femoral artery was punctured. The J-wire would not successfully advanced from the femoral artery into the aorta I used a Norberto wire to access the descending abdominal aorta. Following this the 5 [place] vascular sheath was placed. Because of the obvious peripheral vascular disease I performed all catheter exchanges in the descending abdominal aorta over the J-wire. After accessing the aorta a 5 [place] JR4 catheter was used to engage inject the right coronary artery in multiple projections. After this the FL4 catheter was used to engage inject the left coronary artery in multiple projections. The 5 [place] angled pigtail catheter was used to measure left-sided hemodynamics and inject and LV g in the FLYNN projection. The pigtail catheter was then withdrawn over the guidewire the sheath was taped into position he was taken to the holding area for manual sheath removal. He was not a candidate for Angio-Seal because of peripheral disease. He left the mobile lab technician with no evidence of any procedural complications and no evidence of a groin hematoma. Findings:: Hemodynamics: Central aorta is 176/62 left ventricle 180 over 2 end-diastolic pressure 14 there is no systolic gradient on pullback across the aortic valve. Left ventricle: The LV is normal in size all segments contract properly the ejection fraction is 55-60% by visual estimation I do not see any wall motion abnormalities. Left main coronary artery is widely patent the LAD is a moderate caliber artery extending down to the apex the LAD has some mild atherosclerosis in the proximal 3rd but no lesions that appear to be flow limiting there is no more than 20-30% stenosis identified. Circumflex is a moderate caliber artery giving rise to the marginal branches the trunk of the circumflex and its midportion has mild plaquing with some luminal irregularities but no angiographically significant disease right coronary artery is large in caliber and dominant to the posterior circulation. The RCA is remarkable also for minimal luminal irregularities in the 2nd portion there are no flow-limiting lesions identified Conclusion:: 1. right coronary dominant circulation with modest atherosclerosis nothing that appears to be flow limiting. 2. Normal left ventricular systolic function 3. false-positive nuclear stress test appears to be related to patient obesity /soft tissue attenuation Walt Demarco MD FACC
[2019-12-04] MEDS: ACETAMINOPHEN 325 MG TABLET 650 MG PO (16:57)
--- NOTE | 2019-12-04 17:35 | SUR.PHASEII ---
patient ambulated to chair with no bleeding or hematoma, will continue to monitor.
== END 2019-12-04 18:42 | disposition home or self-care (01) ==
PROVIDERS: PCP Family Medicine; Visit Provider Specialist
PROC: 4A023N7 Measurement of Cardiac Sampling and Pressure, Left Heart, Percutaneous Approach (ICD-10-PCS; CPT 93452; principal; 2019-12-04 10:00)
DX: R94.39 Abnormal result of other cardiovascular function study (principal); I11.0 Hypertensive heart disease with heart failure; I50.30 Unspecified diastolic (congestive) heart failure; E11.51 Type 2 diabetes mellitus with diabetic peripheral angiopathy without gangrene; R06.02 Shortness of breath; F41.9 Anxiety disorder, unspecified; N40.1 Benign prostatic hyperplasia with lower urinary tract symptoms; J44.9 Chronic obstructive pulmonary disease, unspecified; M10.9 Gout, unspecified; E78.2 Mixed hyperlipidemia; G47.33 Obstructive sleep apnea (adult) (pediatric); E55.9 Vitamin D deficiency, unspecified; E66.01 Morbid (severe) obesity due to excess calories; Z68.41 Body mass index [BMI] 40.0-44.9, adult; Z79.84 Long term (current) use of oral hypoglycemic drugs; Z79.82 Long term (current) use of aspirin; Z86.73 Personal history of transient ischemic attack (TIA), and cerebral infarction without residual deficits; Z87.891 Personal history of nicotine dependence
CPT/HCPCS: 36415; 80048; 85025; 85610; 93458; A9270; C1769; C1887; C1894; J1644; J2250; J3010; J7030; J7040

== ENCOUNTER 2019-12-23 13:54 | Outpatient (CLI) | payer MEDICARE, SELFPAY ==
--- NOTE | ~2019-12-23 | US_ITS ---
EXAMINATION: US art doppler w press LE BI DATE: 12/23/2019 14:48 INDICATION: Bilateral lower limb peripheral arterial occlusive disease. Risk factors of hypertension, hypercholesterolemia and diabetes. TECHNIQUE: Segmental pressures and plethysmographic and Doppler waveforms of the brachial and lower e xtremity arteries were obtained. COMPARISON: None. FINDINGS: Cardiac arrhythmia is identified on 2 of the Doppler traces. Right and left brachial artery pressures of 179 mm Hg and 194 mm Hg, respectively, are concordant (no rmal difference <= 30 mmHg). The right and left high-thigh pressure indices were unable to be obtaine d due to inability to occlude the vessels (normal > 1.2). The right ankle-brachial index (ROSAURA) was unable to be obtained due to inability to occlude the vessel s at the right ankle (normal >= 0.9-1). The right great toe-brachial index (TBI) is 0.54 (normal >= 0 .6-0.8). Arterial waveforms are biphasic with brisk systolic upstrokes at the right common femoral, s uperficial femoral and dorsalis pedis arteries. There is broadening of the systolic peaks with delaye d upstrokes at the right popliteal and posterior tibial arteries. The left ROSAURA is at least 0.57 but with pressure unable to be obtained in the left dorsalis pedis tika ry due to inability to occlude the vessel leaving the likely possibility of a higher true ROSAURA. The le ft TBI is 0.60. Arterial waveforms are biphasic with brisk systolic upstrokes throughout. IMPRESSION: 1. Mild arterial occlusive disease with mildly decreased right and borderline left TBI's. Diagnostic ROSAURA is unable to be obtained due to inability to occlude the right posterior tibial and bilateral colleen salis pedis arteries. 2. Significant hypertension. 3. Sporadic cardiac arrhythmia on a couple of the Doppler traces. Correlate with EKG. Reviewed, dictated and finalized at location A. [employer] IMPRESSION: 1. Mild arterial occlusive disease with mildly decreased right and borderline l eft TBI's. Diagnostic ROSAURA is unable to be obtained due to inability to occlude the right posterior tibial and bilateral dorsalis pedis arteries. 2. Significant hypertension. 3. Sporadic cardiac arrhythmia on a couple of the Doppler traces. Correlate wit h EKG.
== END 2019-12-23 13:55 | disposition home or self-care (01) ==
PROVIDERS: PCP Family Medicine; Visit Provider Podiatrist Foot & Ankle Surgery
DX: I73.9 Peripheral vascular disease, unspecified (principal); I10 Essential (primary) hypertension
CPT/HCPCS: 93923

== ENCOUNTER 2020-09-09 10:59 | Outpatient (CLI) | payer MEDICARE, SELFPAY ==
[2020-09-09 11:27] LABS: Basophils Absolute Auto 0.1 K/mm3 (0.0-0.1); Basophils Percent Auto 0.9 % (0.2-1.2); Eosinophils Absolute Auto 0.3 K/mm3 (0-0.3); Eosinophils Percent Auto 2.6 % (0-4.4); Hematocrit 41.5 % (42.0-52.0); Hemoglobin 13.7 g/dL (14.0-18.0); Immature Granulocyte Absolute 0.05 K/mm3 (0.00-0.031); Immature Granulocyte Percent A 0.4 % (0-0.5); Lymphocytes Percent Auto 18.3 % (18.3-44.2); Mean Corpuscular Hemoglobin 32.6 pg (26-34); Mean Corpuscular Volume 98.8 fl (80-100); Mean Platelet Volume 10.3 fl (7.4-10.4); Monocytes Absolute Auto 0.7 K/mm3 (0.1-0.6); Monocytes Percent Auto 5.4 % (2.6-8.5); Neutrophils Absolute Auto 9.1 K/mm3 (1.3-6.7); Neutrophils Percent Auto 72.4 % (45.5-73.1); Platelet Count Result 235 k/mm3 (150-375); Red Cell Distribution Width 12.5 % (11.5-14.5); White Blood Count 12.6 K/mm3 (4.5-10.0)
[2020-09-09 16:41] LABS: Alanine Aminotransferase 14 U/L (4-50); Albumin Level 3.7 g/dL (3.5-5.1); Alkaline Phosphatase 67 U/L (38-126); Anion Gap 10 mmol/L (8-16); Aspartate Amino Transferase 21 U/L (17-59); Bilirubin,Total 0.5 mg/dL (0.2-1.3); Blood Urea Nitrogen 15 mg/dL (9-20); CRP < 0.5 mg/dL (<1.0); Carbon Dioxide 28 mmol/L (22-30); Chloride 103 mmol/L (98-107); Estimated Glomerular Filt Rate 58; Glucose 208 mg/dL (65-110); Potassium 4.9 mmol/L (3.4-5.0); Sodium 141 mmol/L (137-145)
[2020-09-09 17:18] LABS: Erythrocyte Sedimentation Rate 21 mm/hr (0-20)
== END 2020-09-09 11:00 | disposition home or self-care (01) ==
PROVIDERS: PCP Family Medicine; Visit Provider Internal Medicine Hematology & Oncology
DX: D72.829 Elevated white blood cell count, unspecified (principal)
CPT/HCPCS: 36415; 80053; 85025; 85652; 86140; 88184; 88185

== ENCOUNTER 2020-10-20 13:20 | Outpatient (CLI) | payer MEDICARE, SELFPAY ==
--- NOTE | ~2020-10-20 | XR_ITS ---
EXAMINATION: XR chest 2V DATE: 10/20/2020 13:08 INDICATION: Cough and COPD TECHNIQUE: PA and lateral views of the chest are obtained. COMPARISON: 10/24/2019 FINDINGS: The lungs are free of acute opacities. There is no pleural effusion or pneumothorax. The ca rdiomediastinal silhouette is normal. There are bridging osteophytes at multiple levels in the spine, consistent with diffuse idiopathic skeletal hyperostosis (DISH). IMPRESSION: 1. No acute cardiopulmonary abnormality. Reviewed, dictated and finalized at location B.
[2020-10-20 14:11] LABS: Basophils Absolute Auto 0.1 K/mm3 (0.0-0.1); Basophils Percent Auto 0.9 % (0.2-1.2); Eosinophils Absolute Auto 0.2 K/mm3 (0-0.3); Eosinophils Percent Auto 1.7 % (0-4.4); Hematocrit 44.5 % (42.0-52.0); Hemoglobin 14.9 g/dL (14.0-18.0); Immature Granulocyte Absolute 0.04 K/mm3 (0.00-0.031); Immature Granulocyte Percent A 0.3 % (0-0.5); Lymphocytes Percent Auto 18.3 % (18.3-44.2); Mean Corpuscular HGB Conc 33.5 g/dl (32-36); Mean Corpuscular Hemoglobin 32.8 pg (26-34); Mean Platelet Volume 10.6 fl (7.4-10.4); Monocytes Absolute Auto 0.9 K/mm3 (0.1-0.6); Monocytes Percent Auto 6.8 % (2.6-8.5); Neutrophils Absolute Auto 9.5 K/mm3 (1.3-6.7); Platelet Count Result 239 k/mm3 (150-375); Red Blood Count 4.54 M/mm3 (4.6-6.20); Red Cell Distribution Width 12.4 % (11.5-14.5); White Blood Count 13.2 K/mm3 (4.5-10.0)
[2020-10-20 14:25] LABS: D Dimer 0.43 ug/mL (<0.48)
[2020-10-20 14:34] LABS: Anion Gap 7 mmol/L (8-16); Blood Urea Nitrogen 22 mg/dL (9-20); Calcium 9.8 mg/dL (8.4-10.2); Carbon Dioxide 31 mmol/L (22-30); Chloride 103 mmol/L (98-107); Estimated Glomerular Filt Rate 49; Glucose 171 mg/dL (65-110); Potassium 4.6 mmol/L (3.4-5.0); Sodium 141 mmol/L (137-145)
[2020-10-20 14:44] LABS: NT Pro B Type Natriuretic Pept 306 pg/mL (5-100)
== END 2020-10-20 13:21 | disposition home or self-care (01) ==
LOC: ANHIMG 13:21
PROVIDERS: PCP Family Medicine; Visit Provider Nurse Practitioner Family
DX: R06.02 Shortness of breath (principal); R05 Cough; J44.9 Chronic obstructive pulmonary disease, unspecified; M79.89 Other specified soft tissue disorders
CPT/HCPCS: 36415; 71046; 80048; 83880; 85025; 85380

== ENCOUNTER 2020-10-26 16:28 | Outpatient (CLI) | payer MEDICARE, SELFPAY ==
--- NOTE | ~2020-10-26 | US_ITS ---
US abdomen limited DATE: 10/26/2020 17:18 INDICATION: Right upper quadrant abdominal pain TECHNIQUE: Real-time imaging of liver, pancreas, gallbladder areas COMPARISON: 04/30/2019 right upper quadrant abdominal ultrasound 04/30/2019 CT abdomen pelvis FINDINGS: There is hepatic steatosis. Normal hepatopedal portal venous flow direction. No hepatic spa ce-occupying mass lesion is evident. No gallstones or gallbladder wall thickening. Negative sonograph ic Smith's sign. The common bile duct measures 4.7 mm, normal. The pancreas is not optimally visualized. IMPRESSION: Limited evaluation of pancreas Hepatic steatosis Reviewed, dictated and finalized at Location A. Reviewed, dictated and finalized at location A.
== END 2020-10-26 16:29 | disposition home or self-care (01) ==
LOC: ANHIMG 16:30
PROVIDERS: PCP Family Medicine; Visit Provider Nurse Practitioner Family
DX: R07.9 Chest pain, unspecified (principal); R10.11 Right upper quadrant pain; K76.0 Fatty (change of) liver, not elsewhere classified
CPT/HCPCS: 76705

== ENCOUNTER 2021-01-26 15:32 | Outpatient (CLI) | payer MEDICARE, SELFPAY ==
--- NOTE | ~2021-01-26 | XR_ITS ---
XR foot RT min 3V 01/26/2021 15:54 Indication: Right foot and heel pain Procedure: 4 views right foot Comparison: Left ankle series dated 08/25/2018 Findings: There is osteoarthritis of the ankle, midfoot, first MTP joints. Lisfranc joint intact. No acute fracture or traumatic malalignment. Osteopenia. There is a degenerative calcaneal enthesophyte. There is vascular calcification. Impression: 1: Moderate polyarticular osteoarthritis, most advanced at the first MTP joint. Reviewed, dictated and finalized at location A. ASTRUCTURE ADMINISTRATOR Impression: 1: Moderate polyarticular osteoarthritis, most advanced at the first MTP joint.
== END 2021-01-26 15:33 | disposition home or self-care (01) ==
LOC: ANHIMG 15:40
PROVIDERS: PCP Family Medicine; Visit Provider Physician Assistant Medical
DX: M19.071 Primary osteoarthritis, right ankle and foot (principal)
CPT/HCPCS: 73630

== ENCOUNTER 2021-05-09 11:01 | Observation (INO) | payer MEDICARE, SELFPAY ==
[2021-05-09] VITALS (38 sets, daily range): BP systolic 103–145; BP diastolic 42–97; PULSE 61–87; RESP 8–31; TEMP 36.8; O2SAT 94–100
--- NOTE | ~2021-05-09 | CT_ITS ---
EXAMINATION: CT brain wo [facility] [place] EXAM DATE: 05/09/2021 12:44 INDICATION: Weakness. TECHNIQUE: Spiral CT of the head was performed without contrast. Axial, coronal and sagittal images were reviewed. The dose-length product (DLP) for this examination was 605.33 mGy-cm. The exposure w as tailored according to patient size, and iterative reconstruction (ASIR) was used as additional dos e reduction technique. Comparison is made to prior examination from 01/02/17. FINDINGS: There is no acute intraparenchymal hemorrhage. Mild to moderate microangiopathy. Mild cereb ral atrophy. There is punctate old left basal ganglia lacunar infarction. No evidence of intraparench ymal brain mass lesion. No evidence of acute infarction. There is no mass effect or midline shift. The ventricles are normal in size. There are no extra-axial collections. There are no acute calvar ial fractures. The orbits are unremarkable. Soft tissue is unremarkable. The visualized sinuses and mastoid air cells are well aerated. IMPRESSION: Punctate old left basal ganglia lacunar infarction. Microangiopathy and atrophy. Reviewed, dictated and finalized at location B.
--- NOTE | ~2021-05-09 | XR_ITS ---
EXAMINATION: XR chest 2V DATE: 05/09/2021 12:18 INDICATION: Weakness. Hypotension. Shortness of breath. TECHNIQUE: Frontal and lateral views of the chest were obtained on 3 radiographs. COMPARISON: Chest 2 views 10/20/2020, CT abdomen and pelvis 04/20/2019 FINDINGS: There is mild atelectasis in the lower lung zones. No pleural effusion or pneumothorax. The heart size is normal. There is a lap band of the proximal stomach. IMPRESSION: 1. Mild atelectasis in the lower lung zones. Reviewed, dictated and finalized at location A.
--- NOTE | 2021-05-09 11:14 | ECG_ITS ---
Measurements Intervals [place] Rate: 75 P: 260 VA: 113 QRS: -5 QRSD: 101 T: 91 QT: 407 QTc: 455 Interpretive Statements SINUS RHYTHM WITH PACS LOW QRS VOLTAGE [QRS DEFLECTION < 0.5/1.0 mV IN LIMB/CHEST LEADS] NONSPECIFIC INTRAVENTRICULAR CONDUCTION ABNORMALITY ABNORMAL ECG NO PREVIOUS ECG AVAILABLE FOR COMPARISON Electronically Signed On 05-09-2021 17:31:17 CDT by Walt Demarco M.D.
[2021-05-09 11:48] LABS: Basophils Absolute Auto 0.1 K/mm3 (0.0-0.1); Basophils Percent Auto 0.8 % (0.2-1.2); Eosinophils Absolute Auto 0.7 K/mm3 (0-0.3); Eosinophils Percent Auto 5.4 % (0-4.4); Hematocrit 26.2 % (42.0-52.0); Hemoglobin 8.6 g/dL (14.0-18.0); Immature Granulocyte Absolute 0.06 K/mm3 (0.00-0.031); Immature Granulocyte Percent A 0.5 % (0-0.5); Lymphocytes Absolute Auto 1.23 K/mm3 (0.9-3.2); Lymphocytes Percent Auto 10.3 % (18.3-44.2); Mean Corpuscular HGB Conc 32.8 g/dl (32-36); Mean Corpuscular Hemoglobin 34.4 pg (26-34); Mean Corpuscular Volume 104.8 fl (80-100); Mean Platelet Volume 10.3 fl (7.4-10.4); Monocytes Absolute Auto 0.7 K/mm3 (0.1-0.6); Monocytes Percent Auto 5.5 % (2.6-8.5); Neutrophils Absolute Auto 9.3 K/mm3 (1.3-6.7); Neutrophils Percent Auto 77.5 % (45.5-73.1); Platelet Count Result 311 k/mm3 (150-375); Red Cell Distribution Width 14.6 % (11.5-14.5)
[2021-05-09 11:59] LABS: Alanine Aminotransferase 10 U/L (4-50); Albumin Level 3.6 g/dL (3.5-5.1); Alkaline Phosphatase 61 U/L (38-126); Anion Gap 9 mmol/L (8-16); Aspartate Amino Transferase 20 U/L (17-59); Bilirubin,Total 0.9 mg/dL (0.2-1.3); Blood Urea Nitrogen 48 mg/dL (9-20); Calcium 8.9 mg/dL (8.4-10.2); Carbon Dioxide 26 mmol/L (22-30); Chloride 103 mmol/L (98-107); Estimated CRCL calculation 21 ml/min; Estimated Glomerular Filt Rate 19; Glucose 228 mg/dL (65-110); Potassium 4.5 mmol/L (3.4-5.0); Sodium 138 mmol/L (137-145)
--- NOTE | 2021-05-09 11:59 | ED.WEAKNESS ---
HPI - Weakness General Chief complaint: Weakness <Donna Linder MD - Last Filed: 05/10/21 20:30> Stated complaint: hypotension <Donna Linder MD - Last Filed: 05/10/21 20:30> Time Seen by Provider: 05/09/21 11:59 <Donna Linder MD - Last Filed: 05/10/21 20:30> Source: patient, family and EMS <Donna Linder MD - Last Filed: 05/10/21 20:30> Mode of arrival: EMS <Donna Linder MD - Last Filed: 05/10/21 20:30> Limitations: other (poor historian) <Donna Linder MD - Last Filed: 05/10/21 20:30> History of Present Illness HPI Narrative: Patient is an 80-year-old male with a history of coronary artery disease, hypertension, hyperlipidemia, type 2 diabetes, CVA, presenting to the emergency department for evaluation of weakness, hypotensive episode at his primary care physician's office this morning. Per EMS, they were called to the primary care physician's office for the patient who was noted to be hypotensive, confused after he had stood to come into the office for his appointment. Per family at bedside at the time of assessment, the patient did not lose consciousness. His blood pressure was low, he seems somewhat confused momentarily for mental status improved when the patient was sitting. 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 Patient reports bruising at the site but denies any pain. Denies any chest pain, abdominal pain, nausea, vomiting. Per family, he has had difficulty ambulating since discharge from [facility]. I did ask the patient and his family if he was cleared for discharge home or if it had been recommended for him to go to a halfway facility or rehabilitation facility, the patient's family states that he was cleared for home. Patient has mostly been in a wheelchair but did slip out of the chair yesterday. No recent falls or head trauma. Patient's mentation is now back to baseline per family. Patient has had decreased oral intake since discharge. Her son, states that the medication pain is all the patient was in house notable for decrease in lisinopril. <Donna Linder MD - Last Filed: 05/10/21 20:30> Related Data Home medications: Home Medications Medication Instructions Recorded Confirmed magnesium 200 mg tablet 400 mg PO BID tablet 09/14/19 05/11/21 cholecalciferol (vitamin D3) 50 mcg PO DAILY 10/24/19 05/11/21 omega-3 fatty acids 1,000 mg 1,000 mg PO BID 11/03/19 05/11/21 capsule aspirin 81 mg tablet,delayed 81 mg PO DAILY 11/23/19 05/11/21 release acetaminophen 500 mg tablet 500 mg PO Q6H 02/21/21 05/11/21 memantine 10 mg tablet 10 mg PO BID tablet 02/21/21 05/11/21 ferrous sulfate 325 mg (65 mg 325 mg PO DAILY 05/09/21 05/11/21 iron) tablet furosemide 20 mg tablet 10 mg PO QAM 05/09/21 05/11/21 allopurinol 300 mg PO DAILY 05/11/21 05/11/21 aspirin [Adult Low Dose Aspirin] 81 mg PO DAILY 05/11/21 05/11/21 carvedilol 6.25 mg PO Q12H 05/11/21 05/11/21 cholecalciferol (vitamin D3) 2,000 units BYMOUTH DAILY 05/11/21 05/11/21 cilostazol 50 mg PO BID 05/11/21 05/11/21 clopidogrel 75 mg PO DAILY 05/11/21 05/11/21 exenatide microspheres [Bydureon 2 mg SUBCUT WEEKLY 05/11/21 05/11/21 BCise] glimepiride 2 mg PO DAILY 05/11/21 05/11/21 magnesium oxide 400 mg PO DAILY 05/11/21 05/11/21 memantine 10 mg PO DAILY 05/11/21 05/11/21 metformin 500 mg PO DAILY 05/11/21 05/11/21 tramadol 50 mg PO Q8H PRN 05/11/21 05/11/21 <Donna Linder MD - Last Filed: 05/10/21 20:30> Allergies/Adverse reactions: Allergies Allergy/AdvReac Type Severity Reaction Status Date / Time citalopram Allergy Unknown Unknown Verified 05/12/21 08:52 hydrochlorothiazide Allergy Unknown Dizziness Verified 05/12/21 08:52 <Donna Linder MD - Last Filed: 05/10/21 20:30> Review of Systems Review of Systems:
--- NOTE | 2021-05-09 12:03 | PC.NURSE ---
Pt noted to have bruising to left upper arm, right arm, and right flank. Pt reportedly had a blood clot to right extremity that was removed at [facility], pt was discharged yesterday. Went for f/u today and became very weak . visitor at bedside states he was at baseline this am and deteriorated quickly. Pt c/o generalized weakness.
--- NOTE | 2021-05-09 12:07 | PC.NURSE ---
pt to xray via stretcher.
--- NOTE | 2021-05-09 12:14 | PC.NURSE ---
pt returned from xray. Awaiting ERP evaluation.
--- NOTE | 2021-05-09 12:23 | PC.NURSE ---
ERP at bedside to evaluate pt.
--- NOTE | 2021-05-09 12:30 | PC.NURSE ---
Lab called to add on additional labwork.
[2021-05-09] MEDS: SODIUM CHLORIDE 0.9% IV 500 ML 999 ML IV CONT (12:54)
[2021-05-09 13:11] LABS: NT Pro B Type Natriuretic Pept 1030 pg/mL (5-100)
[2021-05-09 13:26] LABS: Troponin I 0.037 ng/mL (0.000-0.034)
--- NOTE | 2021-05-09 14:05 | PC.NURSE ---
Pt given urinal to attempt specimen, unable to at this time. Urinal placed by genital area by patient. pt knows we are calling [facility] access line for possible transfer.
--- NOTE | 2021-05-09 14:28 | PC.NURSE ---
Pt repositioned in bed.
--- NOTE | 2021-05-09 14:38 | PC.NURSE ---
Triage information completed by transfer center.
--- NOTE | 2021-05-09 14:46 | PC.NURSE ---
pt aware of need to transfer to [facility].
[2021-05-09 14:55] LABS: Appearance Urine Clear (Clear); Bilirubin Urine Negative (Negative); Color Urine Yellow (Yellow); Glucose Urine UA Negative (Negative); Ketones Urine Negative (Negative); Leukocyte Esterase Ur Negative LEU/UL (Negative); Nitrate Urine Negative (Negative); Protein Urine 2+ mg/dL (Negative); Specific Grav Ur 1.025 (1.001-1.035); Urobilinogen Urine 0.2 mg/dL (<2.0)
[2021-05-09 14:58] LABS: Add Urine Microscopic? YES; Blood Urine Trace (Negative)
[2021-05-09 15:01] LABS: Mucus Urine Rare /lpf; RBC Urine 0-2 /hpf (0-2); Squamous Epithelial Cell Urine Occasional /hpf (Few)
[2021-05-09 15:27] LABS: SARS-CoV-2 RNA PCR Negative
--- NOTE | 2021-05-09 16:00 | PC.NURSE ---
Labs drawn, pt is resting with no complaints at this time. Awaiting call back from [facility] with bed placement. Call placed to transfer center to update on Covid status
[2021-05-09 16:36] LABS: Troponin I 0.038 ng/mL (0.000-0.034)
--- NOTE | 2021-05-09 20:09 | PC.NURSE ---
pt family called and updated on status in er.
--- NOTE | 2021-05-09 20:12 | PC.NURSE ---
spoke with Shi in the [facility] transfer center for status update. Patient is on the list but nothing is assigned
--- NOTE | 2021-05-09 21:28 | PC.NURSE ---
Pt is on CPAP at this time. Daughter at bedside.
[2021-05-09] MEDS: traMADol HCL (*CRX) 50 MG TABLET PO (22:09)
--- NOTE | 2021-05-09 22:17 | PC.NURSE ---
Pt placed on hospital bed, wound re-dressed to right upper extremity. [place] intact, wound appears clean and intact.
--- NOTE | 2021-05-09 23:05 | PC.NURSE ---
Assuming care of pt.
--- NOTE | 2021-05-09 23:13 | PC.NURSE ---
BSSR given to Chiqui Jones RN.
[2021-05-09 23:18] LABS: Basophils Absolute Auto 0.1 K/mm3 (0.0-0.1); Basophils Percent Auto 1.2 % (0.2-1.2); Eosinophils Absolute Auto 0.8 K/mm3 (0-0.3); Eosinophils Percent Auto 7.6 % (0-4.4); Hematocrit 25.7 % (42.0-52.0); Hemoglobin 8.3 g/dL (14.0-18.0); Immature Granulocyte Absolute 0.04 K/mm3 (0.00-0.031); Immature Granulocyte Percent A 0.4 % (0-0.5); Lymphocytes Absolute Auto 2.12 K/mm3 (0.9-3.2); Lymphocytes Percent Auto 20.3 % (18.3-44.2); Mean Corpuscular HGB Conc 32.3 g/dl (32-36); Mean Corpuscular Hemoglobin 33.6 pg (26-34); Mean Platelet Volume 9.9 fl (7.4-10.4); Monocytes Absolute Auto 0.8 K/mm3 (0.1-0.6); Monocytes Percent Auto 7.2 % (2.6-8.5); Neutrophils Absolute Auto 6.6 K/mm3 (1.3-6.7); Neutrophils Percent Auto 63.3 % (45.5-73.1); Platelet Count Result 301 k/mm3 (150-375); Red Blood Count 2.47 M/mm3 (4.6-6.20); Red Cell Distribution Width 14.6 % (11.5-14.5); White Blood Count 10.4 K/mm3 (4.5-10.0)
[2021-05-09 23:29] LABS: Anion Gap 6 mmol/L (8-16); Blood Urea Nitrogen 45 mg/dL (9-20); Calcium 8.8 mg/dL (8.4-10.2); Carbon Dioxide 27 mmol/L (22-30); Chloride 105 mmol/L (98-107); Estimated CRCL calculation 22 ml/min; Estimated Glomerular Filt Rate 21; Glucose 85 mg/dL (65-110); Potassium 3.9 mmol/L (3.4-5.0); Sodium 138 mmol/L (137-145)
[2021-05-10] VITALS (96 sets, daily range): BP systolic 92–156; BP diastolic 35–70; PULSE 61–91; RESP 10–41; O2SAT 96–99
--- NOTE | 2021-05-10 01:12 | PC.NURSE ---
Rn spoke with [facility] transfer center they called to get an update on pt. They anticipate a bed this evening after discharges.
[2021-05-10 07:59] LABS: Hematocrit 27.4 % (42.0-52.0); Hemoglobin 8.9 g/dL (14.0-18.0)
--- NOTE | 2021-05-10 08:14 | PC.NURSE ---
pts family at bedside. upset that pt doesnt have a bed at [facility] yet. asking why pt cant go to [facility] since he has seen neurologist there before. dr. powell aware. pt alert. some expressive aphasia noted.
[2021-05-10] MEDS: hydrALAZINE HCL 50 MG TABLET PO ×2 (08:41→19:10)
[2021-05-10] MEDS: CLOPIDOGREL BISULFATE 75 MG TABLET PO (08:41)
[2021-05-10] MEDS: carvediloL 6.25 MG TABLET PO ×2 (08:41→22:02)
[2021-05-10] MEDS: lisinopriL 20 MG TABLET PO (08:41)
[2021-05-10] MEDS: FUROSEMIDE 20 MG TABLET PO (08:41)
[2021-05-10] MEDS: MEMANTINE 10 MG TABLET PO ×2 (08:41→22:03)
[2021-05-10] MEDS: cilostazoL 50 MG TABLET PO (08:41)
[2021-05-10] MEDS: SIMVASTATIN 20 MG TABLET 40 MG PO (08:41)
[2021-05-10] MEDS: PANTOPRAZOLE 40 MG TABLET PO (08:41)
--- NOTE | 2021-05-10 11:40 | PC.NURSE ---
Assumed care of patient waiting transfer to [facility]. Pt's upset with the lengthy process waiting on a bed. Pt and were provided education why its important to be transferred and that it is in the best interest of him. Pt and then appreciative for explanation. Pt denies pain. Was repositioned in bed for comfort x 2 assist. No active bleeding, dejuan intact to RUE. Right radial pulse intermittently palpable, ulnar artery palpable. Cap refill <2 seconds, digits warm, denies any numbness/tingling. No new orders at this time. Call light in reach.
--- NOTE | 2021-05-10 19:27 | PC.NURSE ---
Dressing changed to RUE surgical wound. Wound cleanser used, non-stick gauze and kerlix applied. No erythema noted, minimal swelling (pt reports significantly improved), no active drainage. Appears to be healing. Dressing to IV also changed and pt provided clean gown. Family member at bedside. Pt A&Ox4, denies pain, resting in NAD. Call light in reach.
--- NOTE | 2021-05-10 22:23 | PM.IMHP ---
H&P: HPI History of Present Illness Date/Time: 05/10/21 21:45 Chief Complaint: passed out Narrative: 80-year-old male with past medical history of CHF, coronary artery disease, hypertension, hyperlipidemia, type 2 diabetes mellitus, prior CVA and recent hospitalization for cardiac stents complicated by right upper extremity aneurysm who presented to ER via EMS after syncopal event on 05/09/2021 at around noon. The patient had went to his primary care physician's office follow-up after his recent hospitalization. When they stood the patient up to get out car and going to the office he became hypotensive and confused. His confusion improved when the patient had down. Patient reported that he rib res getting out of the car go to his primary care physician's office in the next thing he knows the ambulance was there. Family reports the patient did not have complete syncope. Family reports that the patient has been having difficulty ambulating since he was discharged from [facility] on May 04. The patient has been in a wheelchair since discharge. He did slip out of his wheelchair yesterday but no reported falls. Patient's mentation has been normal since he arrived to the ER. Initial labs in the ER demonstrated anemia and renal failure. The patient's baseline creatinine and hemoglobin was unknown on initial ER arrival. Records were obtained from [facility] patient's hemoglobin was was 9 on discharge. He has been on oral iron supplementation. His baseline creatinine is around 2.2. He did have evidence of acute renal insufficiency and was given a L of fluids in the ER. He did receive recent contrast for cardiac catheterization. Patient has not been having any lower extremity swelling or shortness of breath. He denies any chest pain. The patient had 2 troponins performed in the ER which were only mildly elevated and flat in appearance. Plan was to transfer the patient back to [facility] where he had recent leave in evaluated. However there were still no beds available after over 2 30 hours in the ER. Subsequently patient has been admitted to our facility. At this time the patient's creatinine had improved after 1 L of fluids given yesterday. The patient has not had any further episodes of hypotension or syncope. At the time my evaluation the patient was in a hospital bed in the ER with his home CPAP in place. His only complaint is pain in his right arm. He has been taking tramadol at home due to postoperative pain. He reports the pain is a 6/10 in intensity. He denies any nausea or vomiting. He has had decreased oral intake. He states that he has not had a bowel movement in several days but relates this to not having eaten much food. He does have chronic intermittent urinary incontinence and urinary dribbling. He wears a pad at all times. On exam the patient's pad is saturated and but he has used the urinal 5 times today with good urine output. Denies any dysuria or changes in urinary frequency. Has not had any cough or congestion. He denied any warning symptoms prior to his near syncopal event yesterday. He denies any diaphoresis or increased shortness of breath from baseline. He denies any orthopnea or paroxysmal nocturnal dyspnea. Review of Systems Review of Systems: 12 systems were reviewed with pertinent positives and negatives per HPI. Except as documented in the HPI, all other systems were reviewed and are negative. [facility] Past Medical History Medical History (Updated 05/11/21 @ 02:31 by Rufina Mares, DO) Benign prostatic hyperplasia (BPH) with straining on urination CHF (congestive heart failure) CKD (chronic kidney disease), stage III COPD (chronic obstructive pulmonary disease) Coronary artery disease (~2019) CVA (cerebral vascular accident) Dementia Gout Hearing loss Hyperlipidemia Hypertension Obstructive sleep apnea on CPAP Osteoporosis Peripheral vascular disease Type 2 diabetes me
[2021-05-11] VITALS (7 sets, daily range): BP systolic 115–154; BP diastolic 57–86; PULSE 62–77; RESP 16; TEMP 36.4–36.5; O2SAT 95–97; BMI 44.3
--- NOTE | 2021-05-11 00:08 | ADMGEN ---
This patient, Evan Paige, was admitted to Medical Room 256-. Patient/family oriented to hospital policies and general routines including ID bracelet, bed and alarms, visiting hours, pain management, procedures, bathroom and other care routines, personal items, smoking policy, room service/diet, and visiting hours. Information on how to activate the Rapid Response Team has been discussed. Patient/Family are encouraged to report perceived risks to care and to ask questions if they do not understand what they are told or what they should do.
[2021-05-11] MEDS: LACTATED RINGERS 1,000 ML 75 ML IV CONT (01:05)
[2021-05-11 07:34] LABS: Glucose Point of Care 126 mg/dl (65-105)
[2021-05-11 08:00] LABS: Alanine Aminotransferase 9 U/L (4-50); Albumin Level 3.5 g/dL (3.5-5.1); Alkaline Phosphatase 57 U/L (38-126); Anion Gap 6 mmol/L (8-16); Aspartate Amino Transferase 21 U/L (17-59); Bilirubin,Total 0.9 mg/dL (0.2-1.3); Blood Urea Nitrogen 40 mg/dL (9-20); Calcium 8.9 mg/dL (8.4-10.2); Carbon Dioxide 26 mmol/L (22-30); Chloride 104 mmol/L (98-107); Estimated CRCL calculation 29 ml/min; Estimated Glomerular Filt Rate 25; Glucose 125 mg/dL (65-110); Magnesium 2.2 mg/dL (1.6-2.3); Potassium 4.1 mmol/L (3.4-5.0); Sodium 136 mmol/L (137-145)
[2021-05-11 08:09] LABS: Basophils Absolute Auto 0.1 K/mm3 (0.0-0.1); Basophils Percent Auto 1.3 % (0.2-1.2); Eosinophils Absolute Auto 0.8 K/mm3 (0-0.3); Eosinophils Percent Auto 7.5 % (0-4.4); Hematocrit 28.7 % (42.0-52.0); Hemoglobin 9.3 g/dL (14.0-18.0); Immature Granulocyte Absolute 0.04 K/mm3 (0.00-0.031); Immature Granulocyte Percent A 0.4 % (0-0.5); Lymphocytes Absolute Auto 2.04 K/mm3 (0.9-3.2); Mean Corpuscular HGB Conc 32.4 g/dl (32-36); Mean Corpuscular Hemoglobin 34.6 pg (26-34); Mean Corpuscular Volume 106.7 fl (80-100); Mean Platelet Volume 10.7 fl (7.4-10.4); Monocytes Absolute Auto 0.7 K/mm3 (0.1-0.6); Monocytes Percent Auto 6.9 % (2.6-8.5); Neutrophils Percent Auto 64.9 % (45.5-73.1); Platelet Count Result 308 k/mm3 (150-375); Red Blood Count 2.69 M/mm3 (4.6-6.20); Red Cell Distribution Width 14.6 % (11.5-14.5); White Blood Count 10.7 K/mm3 (4.5-10.0)
[2021-05-11 08:15] LABS: NT Pro B Type Natriuretic Pept 1410 pg/mL (5-100)
[2021-05-11] MEDS: MAGNESIUM OXIDE 400 MG TABLET PO (08:25)
[2021-05-11] MEDS: allopurinoL 300 MG TABLET PO (08:25)
[2021-05-11] MEDS: CHOLECALCIFEROL 1,000 UNITS TABLET 2000 UNITS BY MOUTH (08:25)
[2021-05-11] MEDS: GLIMEPIRIDE 2 MG TABLET PO (08:25)
[2021-05-11] MEDS: cilostazoL 50 MG TABLET PO (08:25)
[2021-05-11] MEDS: carvediloL 6.25 MG TABLET PO (08:25)
[2021-05-11] MEDS: CLOPIDOGREL BISULFATE 75 MG TABLET PO (08:25)
[2021-05-11] MEDS: ASPIRIN 81 MG ENTERIC TABLET PO (08:25)
[2021-05-11] MEDS: MEMANTINE 10 MG TABLET PO (08:25)
--- NOTE | 2021-05-31 13:16 | PM.DS ---
DS: Admitting Diagnosis Discharge Date 05/11/21 Admitting Diagnosis Vasovagal near syncope Syncope and collapse Weakness Acute renal failure Anemia Diabetes mellitus type 2 GREG DS: Discharge Diagnosis Discharge Diagnosis (1) Type 2 diabetes mellitus: Qualifiers: Diabetes mellitus fdc insulin use: without foot specialist use Diabetes mellitus complication status: with neurologic complications Diabetes mellitus complication detail: with polyneuropathy Qualified Code(s): E11.42 - Type 2 diabetes mellitus with diabetic polyneuropathy Code(s): E11.9 - Type 2 diabetes mellitus without complications Status: Acute (2) Anemia: Qualifiers: Anemia type: unspecified type Qualified Code(s): D64.9 - Anemia, unspecified Code(s): D64.9 - Anemia, unspecified Status: Acute (3) Renal failure (ARF), acute on chronic: Qualifiers: Acute renal failure type: unspecified Chronic kidney disease stage: stage 3 (moderate) Chronic kidney disease stage 3 subtype: unspecified whether 3a or 3b Qualified Code(s): N17.9 - Acute kidney failure, unspecified; N18.30 - Chronic kidney disease, stage 3 unspecified Code(s): N17.9 - Acute kidney failure, unspecified; N18.9 - Chronic kidney disease, unspecified Status: Acute (4) Obstructive sleep apnea on CPAP: Code(s): G47.33 - Obstructive sleep apnea (adult) (pediatric); Z99.89 - Dependence on other enabling machines and devices Status: Acute (5) Morbid obesity: Code(s): E66.01 - Morbid (severe) obesity due to excess calories Status: Acute (6) Syncope and collapse: Code(s): R55 - Syncope and collapse Status: Acute DS: Summary Hospital Course Reason for hospitalization: syncope and collaspe ARF Hospital Course: Patient is an 80-year-old male with past medical history of CHF, CAD, hypertension, hyperlipidemia, diabetes mellitus type 2 and prior CVAs with a recent hospitalization with cardiac stents complicated right extremity aneurysm who presented to the emergency department via EMS. Patient had a syncopal event on 05/09/2021 around noon. The patient had went to his primary care physicians as a follow-up after his recent hospitalization. When they was there he was unable to get out of his vehicle and became hypotensive and confused. His confusion improved once he was able to sit down. Patient reported that his ribs was injured when getting out of the car to his primary care physician's office and did not recur events after that until the ambulance arrived on scene. Family reports that the patient did not have a complete syncopal episode. Upon arrival to the emergency department per EMS the patient initial labs revealed anemia and acute renal failure. Baseline creatinine and hemoglobin was unknown initially in the ER arrival. Records obtained from [facility] patient's hemoglobin was 9 on discharge. He has been placed on iron supplementation. Baseline creatinine is around 2.2 and he did have evidence of acute renal insufficiency. He was given 1 L fluid bolus in the emergency department. Patient did recently have a cardiac catheterization performed with contrast which may have been contributed to his JALYN. Patient does not have lower extremity swelling or shortness of breath. He denies any chest pain. His troponins in the emergency department were mildly elevated however appeared stable. Patient's renal function did slightly improve after receiving 1 L fluid bolus and did not have any episodes of hypotension or syncope during his hospitalization. Patient was transferred to the outlying facility for further management due to his acute syncopal episodes and recent cardiac catheterization. The recreation facility manager at the outpatient basis was consulted and accepted admission. Status at Discharge Functional status at discharge: wheelchair bound Overall status at discharge: patient is progressing back to
--- NOTE | 2021-05-31 13:23 | PM.TDS ---
Transfer Discharge Sum: Prov Provider Date of admission: 05/10/21 20:27 Primary care physician: Eyad Perdomo MD Admitting clinician: Rufina Mares DO Consults: 05/11/21 Care Coordination Consult Routine Comment: Reason for Consult:: Acute Rehab Consult DS: Admitting Diagnosis Discharge Date 05/11/21 Admitting Diagnosis Syncope Acute renal failure DS: Discharge Diagnosis Discharge Diagnosis (1) Type 2 diabetes mellitus: Qualifiers: Diabetes mellitus complication detail: with polyneuropathy Diabetes mellitus complication status: with neurologic complications Diabetes mellitus skilled nursing insulin use: without skilled nursing use Qualified Code(s): E11.42 - Type 2 diabetes mellitus with diabetic polyneuropathy Code(s): E11.9 - Type 2 diabetes mellitus without complications Status: Acute (2) Anemia: Qualifiers: Anemia type: unspecified type Qualified Code(s): D64.9 - Anemia, unspecified Code(s): D64.9 - Anemia, unspecified Status: Acute (3) Renal failure (ARF), acute on chronic: Qualifiers: Acute renal failure type: unspecified Chronic kidney disease stage: stage 3 (moderate) Chronic kidney disease stage 3 subtype: unspecified whether 3a or 3b Qualified Code(s): N17.9 - Acute kidney failure, unspecified; N18.30 - Chronic kidney disease, stage 3 unspecified Code(s): N17.9 - Acute kidney failure, unspecified; N18.9 - Chronic kidney disease, unspecified Status: Acute (4) Obstructive sleep apnea on CPAP: Code(s): G47.33 - Obstructive sleep apnea (adult) (pediatric); Z99.89 - Dependence on other enabling machines and devices Status: Acute (5) Morbid obesity: Code(s): E66.01 - Morbid (severe) obesity due to excess calories Status: Acute (6) Syncope and collapse: Code(s): R55 - Syncope and collapse Status: Acute Transfer Discharge Sum: Med Medications Active and Home Medications: Home Medications cholecalciferol (vitamin D3) 50 mcg PO DAILY 10/24/19 [History Confirmed 05/25/21] omega-3 fatty acids 1,000 mg capsule 1,000 mg PO BID 11/03/19 [History Confirmed 05/25/21] aspirin 81 mg tablet,delayed release 81 mg PO DAILY 11/23/19 [History Confirmed 05/25/21] allopurinol 300 mg tablet 300 mg PO DAILY #90 tablet 08/07/20 [Rx Confirmed 05/25/21] simvastatin 40 mg tablet 40 mg PO DAILY #90 tablet 11/15/20 [Rx Confirmed 05/25/21] acetaminophen 500 mg tablet 500 mg PO Q6H 02/21/21 [History Confirmed 05/25/21] blood sugar diagnostic #120 ea 04/25/21 [Rx Confirmed 05/25/21] blood sugar diagnostic #50 ea 04/25/21 [Rx Confirmed 05/25/21] blood sugar diagnostic #100 ea 04/27/21 [Rx Confirmed 05/25/21] blood-glucose meter #1 ea 04/27/21 [Rx Confirmed 05/25/21] lancets #100 ea 04/27/21 [Rx Confirmed 05/25/21] ferrous sulfate 325 mg (65 mg iron) tablet 325 mg PO DAILY 05/09/21 [History Confirmed 05/25/21] carvedilol 6.25 mg PO Q12H 05/11/21 [History Confirmed 05/25/21] cilostazol 50 mg PO BID 05/11/21 [History Confirmed 05/25/21] clopidogrel 75 mg PO DAILY 05/11/21 [History Confirmed 05/25/21] exenatide microspheres [Bydureon BCise] 2 mg SUBCUT WEEKLY 05/11/21 [History Confirmed 05/25/21] magnesium oxide 400 mg PO DAILY 05/11/21 [History Confirmed 05/25/21] memantine 10 mg PO DAILY 05/11/21 [History Confirmed 05/25/21] tramadol 50 mg PO Q8H PRN 05/11/21 [History Confirmed 05/25/21] mupirocin 2 % topical ointment 1 applic TOPICAL BID #22 g 05/25/21 [Rx Confirmed 05/25/21] Transfer Discharge Sum: Hosp Hospital Course Hospital course: Evan Paige is a 80 year old male with past medical history of CHF, CAD, hypertension, hyperlipidemia, diabetes mellitus type 2 and prior CVAs with a recent hospitalization with cardiac stents complicated right extremity aneurysm who presented to the emergency department via EMS. Patient had a syncopal event on 05/09/2021 around noon. The patient had went to his primary care physician
== END 2021-05-11 09:00 | disposition short-term general hospital (02) ==
LOC: ANHED 14:41 → ANH2MED 05-10 23:57
PROVIDERS: Emergency Medicine; Admitting Provider Internal Medicine; Emergency Provider Emergency Medicine; PCP Family Medicine; Visit Provider Nurse Practitioner Family
DX: N17.9 Acute kidney failure, unspecified (principal); R55 Syncope and collapse; I13.0 Hypertensive heart and chronic kidney disease with heart failure and stage 1 through stage 4 chronic kidney disease, or unspecified chronic kidney disease; I50.9 Heart failure, unspecified; N18.30 Chronic kidney disease, stage 3 unspecified; Z20.822 Contact with and (suspected) exposure to COVID-19; D63.1 Anemia in chronic kidney disease; E78.5 Hyperlipidemia, unspecified; E11.22 Type 2 diabetes mellitus with diabetic chronic kidney disease; E11.42 Type 2 diabetes mellitus with diabetic polyneuropathy; E11.51 Type 2 diabetes mellitus with diabetic peripheral angiopathy without gangrene; E66.01 Morbid (severe) obesity due to excess calories; F03.90 Unspecified dementia, unspecified severity, without behavioral disturbance, psychotic disturbance, mood disturbance, and anxiety; G47.33 Obstructive sleep apnea (adult) (pediatric); H91.90 Unspecified hearing loss, unspecified ear; I25.10 Atherosclerotic heart disease of native coronary artery without angina pectoris; J44.9 Chronic obstructive pulmonary disease, unspecified; M10.9 Gout, unspecified; N40.1 Benign prostatic hyperplasia with lower urinary tract symptoms; R32 Unspecified urinary incontinence; R53.1 Weakness; Z66 Do not resuscitate; Z87.891 Personal history of nicotine dependence; Z79.84 Long term (current) use of oral hypoglycemic drugs; Z86.73 Personal history of transient ischemic attack (TIA), and cerebral infarction without residual deficits; Z95.5 Presence of coronary angioplasty implant and graft; Z68.41 Body mass index [BMI] 40.0-44.9, adult; Z96.653 Presence of artificial knee joint, bilateral; Z90.49 Acquired absence of other specified parts of digestive tract; Z98.41 Cataract extraction status, right eye; Z98.42 Cataract extraction status, left eye; Z96.1 Presence of intraocular lens; Z79.82 Long term (current) use of aspirin; Z79.02 Long term (current) use of antithrombotics/antiplatelets; Z79.899 Other long term (current) drug therapy
CPT/HCPCS: 36415; 70450; 71046; 80048; 80053; 81001; 82948; 83735; 83880; 84443; 84484; 85014; 85018; 85025; 86850; 86900; 86901; 93005; 96360; 96361; 99285; A9270; C9803; G0378; J7040; J7120; U0003; U0005

== ENCOUNTER 2021-05-30 13:33 | Outpatient (NON) | payer MEDICARE, SELFPAY ==
[2021-05-30 13:53] LABS: Basophils Absolute Auto 0.09 K/mm3 (0.00-0.10); Eosinophils Absolute Auto 0.38 K/mm3 (0.02-0.50); Eosinophils Percent Auto 4.1 % (1.0-6.0); Hematocrit 32.3 % (37.0-46.0); Hemoglobin 10.5 g/dL (12.4-15.3); Immature Granulocyte Absolute 0.05 K/mm3 (0.00-0.00); Immature Granulocyte Percent A 0.5 % (0.0-0.0); Lymphocytes Absolute Auto 1.62 K/mm3 (1.10-4.50); Lymphocytes Percent Auto 17.4 % (18.0-42.0); Mean Corpuscular HGB Conc 32.5 g/dL (32.0-36.0); Mean Corpuscular Hemoglobin 34.4 pg (27.0-31.0); Mean Corpuscular Volume 105.9 fL (78.0-102.0); Mean Platelet Volume 11.1 fl (8.7-11.0); Monocytes Absolute Auto 0.52 K/mm3 (0.10-0.90); Monocytes Percent Auto 5.6 % (2.0-11.0); Neutrophils Absolute Auto 6.6 K/mm3 (1.7-7.2); Neutrophils Percent Auto 71.4 % (50.0-70.0); Platelet Count Result 225 K/mm3 (150-420); Red Blood Count 3.05 M/mm3 (4.70-6.10); Red Cell Distribution Width 14.2 % (11.6-14.4); White Blood Count 9.3 K/mm3 (4.8-10.8)
[2021-05-30 14:12] LABS: Anion Gap 11 mmol/L (8-16); Blood Urea Nitrogen 24 mg/dL (7-18); Calcium 9.1 mg/dL (8.5-10.1); Carbon Dioxide 27 mmol/L (21-32); Chloride 105 mmol/L (98-108); Estimated Glomerular Filt Rate 29; Glucose 228 mg/dL (70-99); Osmolality Calculated 307 mOsm/kg (285-295); Potassium 4.3 mmol/L (3.5-5.1); Sodium 143 mmol/L (136-145)
== END 2021-05-30 13:34 | disposition home or self-care (01) ==
LOC: CHSLAB 13:38
PROVIDERS: Visit Provider Family Medicine
DX: E11.22 Type 2 diabetes mellitus with diabetic chronic kidney disease (principal); I50.9 Heart failure, unspecified; I13.2 Hypertensive heart and chronic kidney disease with heart failure and with stage 5 chronic kidney disease, or end stage renal disease
CPT/HCPCS: 36415; 80048; 85025

== ENCOUNTER 2021-06-14 10:00 | Outpatient (NON) | payer MEDICARE, SELFPAY ==
[2021-06-14 10:52] LABS: Cholesterol 121 mg/dL (0-200); HDL Direct 42 mg/dL (40-60); LDL Cholesterol Calculated 58 mg/dL (<130); Triglycerides 105 mg/dL (0-150)
== END 2021-06-14 10:01 | disposition home or self-care (01) ==
LOC: CHSLAB 10:02
PROVIDERS: Visit Provider Internal Medicine Cardiovascular Disease
DX: E78.2 Mixed hyperlipidemia (principal)
CPT/HCPCS: 36415; 80061

== ENCOUNTER 2021-11-06 11:42 | Outpatient (CLI) | payer MEDICARE, SELFPAY ==
--- NOTE | ~2021-11-06 | XR_ITS ---
EXAMINATION: XR ribs BI 3V w CXR 2V INDICATION: Pleurodynia TECHNIQUE: Frontal and lateral views of the chest and multiple views of the views of the bilateral r ibs were obtained on 10 radiographs. COMPARISON: 05/09/2021 FINDINGS: The lungs are free of acute opacities. No pleural effusion or pneumothorax. The cardiomedia stinal silhouette is normal. No displaced rib fracture is identified. There are bridging osteophytes at multiple levels in the spine, consistent with diffuse idiopathic skeletal hyperostosis (DISH). The re is moderate osteoarthritis of the shoulders. A gastric lap band is noted. IMPRESSION: 1. No acute cardiopulmonary abnormality or evidence of displaced rib fracture. Reviewed, dictated and finalized at location A.
== END 2021-11-06 11:43 | disposition home or self-care (01) ==
PROVIDERS: PCP Family Medicine; Visit Provider Physician Assistant Medical
DX: R07.81 Pleurodynia (principal)
CPT/HCPCS: 71046; 71110

== ENCOUNTER 2021-11-10 10:34 | Emergency (ER) | payer MEDICARE, SELFPAY ==
--- NOTE | ~2021-11-10 | XR_ITS ---
XR knee RT min 4V 11/10/2021 11:34 Indication: Right knee pain and swelling Procedure: 4 views right knee Comparison: 01/21/2008 Findings: There is a right total knee arthroplasty. Prosthesis well seated. Small joint effusion. The re is an avulsion fracture medial margin of the tibia.. There is atherosclerosis. Impression: 1: Avulsion fracture medial margin of the tibia with adjacent soft tissue swelling. 2: Small joint effusion. Reviewed, dictated and finalized at location B. Impression: 1: Avulsion fracture medial margin of the tibia with adjacent soft tissue swell ing. 2: Small joint effusion.
[2021-11-10 11:00] VITALS: BP 140/51; PULSE 71; RESP 18; TEMP 36.5; O2SAT 96
--- NOTE | 2021-11-10 11:20 | ED.GENADULT ---
HPI - General Adult General Chief complaint: Extremity Injury, Lower Stated complaint: fall History of Present Illness HPI narrative: Patient is an 80 y/o male who presents to the [facility] via POV accompanied by spouse for an evaluation of a right knee injury that occurred last night. Patient reports he was walking in his garage when he accidentally fell into the frame of garage door. believes his new shoes caused fall. She states he shuffles and that his new shoes stick to the floor. Extra strength Tylenol improves pain. Additionally, he reports pain and swelling. Pain worsens with pressure and weight bearing. Pain is resolved while remaining still. Related Data Home Medications Medication Instructions Recorded Confirmed cholecalciferol (vitamin D3) 50 50 mcg PO DAILY 10/24/19 11/06/21 mcg (2,000 unit) tablet omega-3 fatty acids 1,000 mg 1,000 mg PO BID 11/03/19 11/06/21 capsule (Fish Oil Concentrate) aspirin 81 mg tablet,delayed 81 mg PO DAILY 11/23/19 11/06/21 release (Adult Low Dose Aspirin) acetaminophen 500 mg tablet 500 mg PO Q6H 02/21/21 11/06/21 carvedilol 6.25 mg tablet 6.25 mg PO Q12H 05/11/21 11/06/21 cilostazol 50 mg tablet 50 mg PO BID 05/11/21 11/06/21 magnesium oxide 400 mg PO DAILY 05/11/21 11/06/21 tramadol 50 mg tablet 50 mg PO Q8H PRN PAIN 05/11/21 11/06/21 Allergies Allergy/AdvReac Type Severity Reaction Status Date / Time citalopram Allergy Unknown Unknown Verified 11/06/21 10:17 hydrochlorothiazide Allergy Unknown Dizziness Verified 11/06/21 10:17 Review of Systems Review of Systems: Pertinent negatives: fever, chills, sweats, change in appetite, poor p.o. intake, malaise, calf tenderness, skin color changes, rash, warmth, numbness, tingling, loss of sensation, deformity, decreased range of motion, weakness, difficulty with ambulation/coordination, nausea, vomiting, lymphadenopathy, shortness of breath, chest pain, heart palpitations, and heart murmur. [facility] Past Medical History Medical History Acute cystitis Adult BMI 37.0-37.9 kg/sq m Anxiety disorder, unspecified Benign prostatic hyperplasia (BPH) with straining on urination Benign prostatic hyperplasia with lower urinary tract symptoms Blister of toe BMI 36.0-36.9,adult BMI 40.0-44.9, adult Bronchitis Cerebrovascular accident (CVA) CHF (congestive heart failure) Chronic bilateral low back pain with bilateral sciatica Chronic fatigue Chronic obstructive pulmonary disease CKD (chronic kidney disease), stage III Congestive heart failure last echo February of 2019 impaired diastolic relaxation grade 1 estimated ejection fraction of 50-55%. COPD (chronic obstructive pulmonary disease) Coronary artery disease (~2019) CVA (cerebral vascular accident) Dementia Diabetes with ulcer of toe Dyspnea Essential (primary) hypertension Excessive sputum Fatigue Gait instability Gout Gout Groin pain Hearing loss History of kidney stones Hordeolum of right eye Hyperlipidemia Hypertension Hypotension Mixed hyperlipidemia Morbid obesity Obstructive sleep apnea on CPAP GREG on CPAP Osteoarthritis of knees, bilateral Osteoporosis Peripheral arterial disease Peripheral vascular disease Pseudoaneurysm of artery of upper extremity Recurrent UTI Somnolence Type 2 diabetes mellitus Type 2 diabetes mellitus Urinary incontinence Vitamin D deficiency Wound, open, upper arm Surgical History Surgical History H/O cataract extraction H/O heart artery stent H/O hernia repair H/O inguinal hernia repair History of appendectomy History of bilateral knee replacement History of testicular surgery History of tonsillectomy History of tonsillectomy and adenoidectomy History of total knee replacement History of total left knee replacement History of total right knee replacement History of transurethral resection of pro
== END 2021-11-10 12:10 | disposition home or self-care (01) ==
PROVIDERS: Emergency Provider Nurse Practitioner Family; PCP Family Medicine
DX: S82.51XA Displaced fracture of medial malleolus of right tibia, initial encounter for closed fracture (principal); W19.XXXA Unspecified fall, initial encounter; N40.0 Benign prostatic hyperplasia without lower urinary tract symptoms; Z86.73 Personal history of transient ischemic attack (TIA), and cerebral infarction without residual deficits; I13.0 Hypertensive heart and chronic kidney disease with heart failure and stage 1 through stage 4 chronic kidney disease, or unspecified chronic kidney disease; E11.22 Type 2 diabetes mellitus with diabetic chronic kidney disease; N18.30 Chronic kidney disease, stage 3 unspecified; I50.9 Heart failure, unspecified; J44.9 Chronic obstructive pulmonary disease, unspecified; I25.10 Atherosclerotic heart disease of native coronary artery without angina pectoris; F03.90 Unspecified dementia, unspecified severity, without behavioral disturbance, psychotic disturbance, mood disturbance, and anxiety; M10.9 Gout, unspecified; E78.5 Hyperlipidemia, unspecified; E66.01 Morbid (severe) obesity due to excess calories; Z68.37 Body mass index [BMI] 37.0-37.9, adult; G47.33 Obstructive sleep apnea (adult) (pediatric); I73.9 Peripheral vascular disease, unspecified; Z95.5 Presence of coronary angioplasty implant and graft; Z96.653 Presence of artificial knee joint, bilateral; Z98.42 Cataract extraction status, left eye; Z98.41 Cataract extraction status, right eye; Z96.1 Presence of intraocular lens
CPT/HCPCS: 73564; 99213; G0463

== ENCOUNTER 2021-12-03 07:04 | Emergency (ER) | payer MEDICARE, SELFPAY ==
--- NOTE | ~2021-12-03 | XR_ITS ---
EXAMINATION: XR elbow LT min 3V DATE: 12/03/2021 07:58 INDICATION: Left elbow pain post fall TECHNIQUE: Anteroposterior, two oblique and lateral views of the left elbow were obtained. COMPARISON: None. FINDINGS: Alignment is normal. No fracture or joint effusion. Mild osteoarthritis at the left elbow. Small olec ranon spur. Additional enthesophytes and small enthesopathic ossicle at the medial epicondylar origin of the common flexor tendon wad. Atherosclerotic calcifications along the brachial, radial and ulnar arteries. Soft tissues are unremarkable. IMPRESSION: 1. Mild degenerative and enthesopathic changes at the left elbow. No joint effusion or acute osseous abnormality. Reviewed, dictated and finalized at location A. IMPRESSION: 1. Mild degenerative and enthesopathic changes at the left elbow. No joint effu dang or acute osseous abnormality.
--- NOTE | ~2021-12-03 | XR_ITS ---
EXAMINATION: XR shoulder LT min 2V DATE: 12/03/2021 07:58 INDICATION: Left shoulder pain and limited range of motion post fall TECHNIQUE: AP and transscapular Y views of the left shoulder were obtained. COMPARISON: None FINDINGS: Normal alignment. No fracture.Mild left glenohumeral osteoarthritis with small marginal osteophytes about the glenoid. Mild to moderate osteoarthritic changes are seen at the left acromioclavicular abdirahman nt however the joint space is slightly widened measuring up to 7 mm which is at the upper limits of n ormal particularly for age suggesting the possibility of an acromioclavicular joint separation. Minim al streaky left basilar atelectasis. IMPRESSION: 1. Borderline widening of the acromioclavicular joint which suggests possibility of type I acromiocla vicular joint separation. 2. Mild osteoarthritis at the left glenohumeral and acromioclavicular joints. Reviewed, dictated and finalized at location A. IMPRESSION: 1. Borderline widening of the acromioclavicular joint which suggests possibilit y of type I acromioclavicular joint separation. 2. Mild osteoarthritis at the left glenohumeral and acromioclavicular joints.
[2021-12-03 07:18] VITALS: BP 180/79; PULSE 77; PULSE 81; RESP 19; O2SAT 94; O2SAT 95
--- NOTE | 2021-12-03 07:27 | ED.FALL ---
HPI - Fall General Chief Complaint: Fall Stated Complaint: fall, shoulder pain Time Seen by Provider: 12/03/21 07:23 Source: patient and family Limitations: no limitations History of Present Illness HPI Narrative: 81 years old white male brought to the emergency room by his , private car complaining of left shoulder and left elbow pain after falling yesterday in the driveway. He denies other injuries. No loss of consciousness. On baby aspirin. Patient uses a cane, history of gait abnormalities, walking on her off driveway, his shoes stuck on the ground and fell. He denies any fever, chills, nausea, vomiting, chest pain, shortness of breath, back pain or hip pain Related Data Home Medications Medication Instructions Recorded Confirmed cholecalciferol (vitamin D3) 50 50 mcg PO DAILY 10/24/19 11/20/21 mcg (2,000 unit) tablet omega-3 fatty acids 1,000 mg 1,000 mg PO BID 11/03/19 11/20/21 capsule (Fish Oil Concentrate) aspirin 81 mg tablet,delayed 81 mg PO DAILY 11/23/19 11/20/21 release (Adult Low Dose Aspirin) acetaminophen 500 mg tablet 500 mg PO Q6H 02/21/21 11/20/21 carvedilol 6.25 mg tablet 6.25 mg PO Q12H 05/11/21 11/20/21 magnesium oxide 400 mg PO DAILY 05/11/21 11/20/21 simvastatin 40 mg tablet mg 12/03/21 Allergies Allergy/AdvReac Type Severity Reaction Status Date / Time citalopram Allergy Unknown Unknown Verified 12/03/21 07:23 hydrochlorothiazide Allergy Unknown Dizziness Verified 12/03/21 07:23 Review of Systems Review of Systems: All systems reviewed & are unremarkable except as noted in HPI and below PMFSH Past Medical History Medical History Acute cystitis Adult BMI 37.0-37.9 kg/sq m Anxiety disorder, unspecified Benign prostatic hyperplasia (BPH) with straining on urination Benign prostatic hyperplasia with lower urinary tract symptoms Blister of toe BMI 36.0-36.9,adult BMI 40.0-44.9, adult BMI over 35 Bronchitis Cerebrovascular accident (CVA) CHF (congestive heart failure) Chronic bilateral low back pain with bilateral sciatica Chronic fatigue Chronic obstructive pulmonary disease CKD (chronic kidney disease), stage III Congestive heart failure last echo February of 2019 impaired diastolic relaxation grade 1 estimated ejection fraction of 50-55%. COPD (chronic obstructive pulmonary disease) Coronary artery disease (~2019) CVA (cerebral vascular accident) Dementia Diabetes with ulcer of toe Dyspnea Essential (primary) hypertension Excessive sputum Fatigue Gait instability Gout Gout Groin pain Hearing loss History of kidney stones Hordeolum of right eye Hyperlipidemia Hypertension Hypotension Mixed hyperlipidemia Morbid obesity Obstructive sleep apnea on CPAP GREG on CPAP Osteoarthritis of knees, bilateral Osteoporosis Peripheral arterial disease Peripheral vascular disease Pseudoaneurysm of artery of upper extremity Recurrent UTI Somnolence Type 2 diabetes mellitus Type 2 diabetes mellitus Urinary incontinence Vitamin D deficiency Wound, open, upper arm Surgical History Surgical History H/O cataract extraction H/O heart artery stent H/O hernia repair H/O inguinal hernia repair History of appendectomy History of bilateral knee replacement History of testicular surgery History of tonsillectomy History of tonsillectomy and adenoidectomy History of total knee replacement History of total left knee replacement History of total right knee replacement History of transurethral resection of prostate Hx of appendectomy S/P TURP Status post cataract extraction of both eyes with insertion of intraocular lens Family History Family History Father Family history of diabetes mellitus in first degree relative Alzheimer's dementia Diabetes mellitus Grandparent Diabetes mellitus Mother Alzheimer's dementia D
[2021-12-03 07:31] VITALS: BP 168/77; PULSE 76; RESP 20; O2SAT 91
[2021-12-03] MEDS: HYDROcodone/acetaminophen (*CRX) 5-325 MG TABLET 1 TAB PO (07:46)
[2021-12-03 08:49] VITALS: BP 166/65; PULSE 76; RESP 18; O2SAT 95
== END 2021-12-03 08:51 | disposition home or self-care (01) ==
PROVIDERS: Emergency Provider Emergency Medicine; PCP Family Medicine
DX: S43.102A Unspecified dislocation of left acromioclavicular joint, initial encounter (principal); S59.902A Unspecified injury of left elbow, initial encounter; F03.90 Unspecified dementia, unspecified severity, without behavioral disturbance, psychotic disturbance, mood disturbance, and anxiety; E11.22 Type 2 diabetes mellitus with diabetic chronic kidney disease; I13.0 Hypertensive heart and chronic kidney disease with heart failure and stage 1 through stage 4 chronic kidney disease, or unspecified chronic kidney disease; N18.30 Chronic kidney disease, stage 3 unspecified; I50.9 Heart failure, unspecified; E11.51 Type 2 diabetes mellitus with diabetic peripheral angiopathy without gangrene; I73.9 Peripheral vascular disease, unspecified; N40.1 Benign prostatic hyperplasia with lower urinary tract symptoms; N39.498 Other specified urinary incontinence; R39.16 Straining to void; E78.2 Mixed hyperlipidemia; E66.01 Morbid (severe) obesity due to excess calories; Z68.37 Body mass index [BMI] 37.0-37.9, adult; G47.33 Obstructive sleep apnea (adult) (pediatric); E55.9 Vitamin D deficiency, unspecified; M17.0 Bilateral primary osteoarthritis of knee; M10.9 Gout, unspecified; M81.0 Age-related osteoporosis without current pathological fracture; Z87.440 Personal history of urinary (tract) infections; Z86.73 Personal history of transient ischemic attack (TIA), and cerebral infarction without residual deficits; Z95.5 Presence of coronary angioplasty implant and graft; Z96.653 Presence of artificial knee joint, bilateral; Z90.79 Acquired absence of other genital organ(s); Z98.42 Cataract extraction status, left eye; Z98.41 Cataract extraction status, right eye; Z96.1 Presence of intraocular lens; Z87.891 Personal history of nicotine dependence; M19.012 Primary osteoarthritis, left shoulder; Z79.84 Long term (current) use of oral hypoglycemic drugs; Z79.82 Long term (current) use of aspirin; W01.0XXA Fall on same level from slipping, tripping and stumbling without subsequent striking against object, initial encounter
CPT/HCPCS: 73030; 73080; 99284; A9270

== ENCOUNTER 2021-12-20 12:26 | Inpatient (IN) | payer MEDICARE, SELFPAY ==
--- NOTE | ~2021-12-20 | US_ITS ---
EXAMINATION: US renal BI DATE: 12/21/2021 09:02 INDICATION: Acute kidney injury TECHNIQUE: Multiple grayscale and Doppler ultrasound images of the kidneys were obtained. COMPARISON: None. FINDINGS: The right kidney measures 10.4 x 5.4 x 6.4 cm. The left kidney measures 10.2 x 4.5 x 5.3 cm . The kidneys demonstrate normal parenchymal echogenicity. There is no hydronephrosis. The bladder is normal. IMPRESSION: 1. Normal kidneys without hydronephrosis. Reviewed, dictated and finalized at location B. OLOGY TECHNICIAN
--- NOTE | ~2021-12-20 | XR_ITS ---
EXAMINATION: XR chest 1V portable INDICATION: Weakness TECHNIQUE: Portable AP chest at 1454 hours COMPARISON: 11/06/2021 FINDINGS: There are minimal airspace opacities of the right lung and left lung base. No pleural effus ion or pneumothorax. The cardiomediastinal silhouette is normal. IMPRESSION: 1. Bilateral airspace opacities, consistent with atelectasis versus pneumonia versus pulmonary edema. Reviewed, dictated and finalized at location B. ET INSPECTOR IMPRESSION: 1. Bilateral airspace opacities, consistent with atelectasis versus pneumonia v ersus pulmonary edema.
--- NOTE | ~2021-12-20 | XR_ITS ---
EXAMINATION: XR chest 1V portable DATE: 12/25/2021 05:56 INDICATION: Pneumonia. TECHNIQUE: A single frontal view of the chest was obtained. COMPARISON: Chest one view 12/20/2021 FINDINGS: There is no pneumonia, pleural effusion, pneumothorax. The heart size is normal. A lap band is noted at the proximal stomach. IMPRESSION: 1. No acute cardiopulmonary disease. Reviewed, dictated and finalized at location A. NCIAL SOLUTIONS ADVISOR
[2021-12-20 12:51] VITALS: BP 123/60; PULSE 96; RESP 20; TEMP 36.6; O2SAT 96
--- NOTE | 2021-12-20 13:49 | ECG_ITS ---
Measurements Intervals [place] Rate: 64 P: -79 TN: 170 QRS: 4 QRSD: 97 T: 56 QT: 420 QTc: 436 Interpretive Statements SINUS RHYTHM WITH SINUS ARRHYTHMIA LOW QRS VOLTAGE IN PRECORDIAL LEADS CANNOT RULE OUT SEPTAL INFARCT, AGE INDETERMINATE BORDERLINE ST-T WAVE ABNORMALITY- HIGH LATERAL LEADS BASELINE ARTIFACT- I, II, III, AVR, V1, V4-V6 ABNORMAL ECG COMPARED TO ECG 10/24/2019 10:37:27 SINUS RHYTHM NOW PRESENT SINUS ARRHYTHMIA NOW PRESENT CANNOT RULE OUT SEPTAL INFARCT, AGE INDETERMINATE NOW PRESENT Electronically Signed On 12-20-2021 14:58:45 PETROLEUM SAMPLER by Ciro Rg D.O.
--- NOTE | 2021-12-20 13:52 | ED.GENADULT ---
HPI - General Adult General Chief complaint: Fall Stated complaint: Fall Time Seen by Provider: 12/20/21 13:31 History of Present Illness HPI narrative: 81-year-old male history of chronic kidney disease, CVA, gout, kidney stones, arthritis, pleural artery and vascular disease and type 2 diabetes presents the emergency room for evaluation of generalized weakness and multiple falls. Patient states he was seen at urology last week diagnosed with a UTI, was placed on Bactrim. Reports today he was at PT when he fell multiple times landing on his knees. Patient has been complaining of increasing generalized weakness since being diagnosed with a UTI. Denies syncopal episodes. Denies any head injuries. Related Data Home Medications Medication Instructions Recorded Confirmed cholecalciferol (vitamin D3) 50 50 mcg PO DAILY 10/24/19 11/20/21 mcg (2,000 unit) tablet omega-3 fatty acids 1,000 mg 1,000 mg PO BID 11/03/19 11/20/21 capsule (Fish Oil Concentrate) aspirin 81 mg tablet,delayed 81 mg PO DAILY 11/23/19 11/20/21 release (Adult Low Dose Aspirin) acetaminophen 500 mg tablet 500 mg PO Q6H 02/21/21 11/20/21 carvedilol 6.25 mg tablet 6.25 mg PO Q12H 05/11/21 11/20/21 magnesium oxide 400 mg PO DAILY 05/11/21 11/20/21 simvastatin 40 mg tablet mg 12/03/21 Allergies Allergy/AdvReac Type Severity Reaction Status Date / Time citalopram Allergy Unknown Unknown Verified 12/03/21 07:23 hydrochlorothiazide Allergy Unknown Dizziness Verified 12/03/21 07:23 Review of Systems Review of Systems: CONSTITUTIONAL: Denies fever, chills, or sweats. EYES: Denies visual changes, redness, or discharge. ENT: Denies rhinorrhea, congestion, sore throat, or otalgia. CARDIOVASCULAR: Denies chest pain, palpitations, or edema. RESPIRATORY: Denies cough or dyspnea. GASTROINTESTINAL: Denies abdominal pain, nausea, vomiting, or diarrhea. GENITOURINARY: Reports dysuria, hematuria SKIN: Denies rash or itching. MUSCULOSKELETAL: Denies back pain, joint pain, or myalgia. NEUROLOGIC: Reports generalized weakness PSYCHIATRIC: Denies anxiety or depression. [facility] Past Medical History Medical History Acute cystitis Adult BMI 37.0-37.9 kg/sq m Anxiety disorder, unspecified Benign prostatic hyperplasia (BPH) with straining on urination Benign prostatic hyperplasia with lower urinary tract symptoms Blister of toe BMI 36.0-36.9,adult BMI 40.0-44.9, adult BMI over 35 Bronchitis Cerebrovascular accident (CVA) CHF (congestive heart failure) Chronic bilateral low back pain with bilateral sciatica Chronic fatigue Chronic obstructive pulmonary disease CKD (chronic kidney disease), stage III Congestive heart failure last echo February of 2019 impaired diastolic relaxation grade 1 estimated ejection fraction of 50-55%. COPD (chronic obstructive pulmonary disease) Coronary artery disease (~2018) CVA (cerebral vascular accident) Dementia Diabetes with ulcer of toe Dyspnea Essential (primary) hypertension Excessive sputum Fatigue Gait instability Gout Gout Groin pain Hearing loss History of kidney stones Hordeolum of right eye Hyperlipidemia Hypertension Hypotension Mixed hyperlipidemia Morbid obesity Obstructive sleep apnea on CPAP GREG on CPAP Osteoarthritis of knees, bilateral Osteoporosis Peripheral arterial disease Peripheral vascular disease Pseudoaneurysm of artery of upper extremity Recurrent UTI Somnolence Type 2 diabetes mellitus Type 2 diabetes mellitus Urinary incontinence Vitamin D deficiency Wound, open, upper arm Surgical History Surgical History H/O cataract extraction H/O heart artery stent H/O hernia repair H/O inguinal hernia repair History of appendectomy History of bilateral knee replacement History of testicular surgery History of tonsillectomy History of tonsillectomy and adenoidectomy History of total knee replac
[2021-12-20 14:48] LABS: Basophils Absolute Auto 0.1 K/mm3 (0.0-0.1); Eosinophils Absolute Auto 0.3 K/mm3 (0-0.3); Eosinophils Percent Auto 2.7 % (0-4.4); Hematocrit 35.7 % (42.0-52.0); Hemoglobin 11.7 g/dL (14.0-18.0); Immature Granulocyte Absolute 0.03 K/mm3 (0.00-0.031); Immature Granulocyte Percent A 0.3 % (0-0.5); Lymphocytes Percent Auto 21.3 % (18.3-44.2); Mean Corpuscular HGB Conc 32.8 g/dl (32-36); Mean Corpuscular Hemoglobin 32.2 pg (26-34); Mean Corpuscular Volume 98.3 fl (80-100); Mean Platelet Volume 10.3 fl (7.4-10.4); Monocytes Absolute Auto 0.6 K/mm3 (0.1-0.6); Monocytes Percent Auto 5.8 % (2.6-8.5); Neutrophils Absolute Auto 6.8 K/mm3 (1.3-6.7); Neutrophils Percent Auto 68.9 % (45.5-73.1); Platelet Count Result 256 k/mm3 (150-375); Red Blood Count 3.63 M/mm3 (4.6-6.20); Red Cell Distribution Width 13.4 % (11.5-14.5); White Blood Count 9.9 K/mm3 (4.5-10.0)
[2021-12-20 15:02] LABS: Alanine Aminotransferase 12 U/L (6-50); Albumin Level 3.8 g/dL (3.5-5.1); Alkaline Phosphatase 62 U/L (38-126); Anion Gap 12 mmol/L (8-16); Aspartate Amino Transferase 28 U/L (17-59); Bilirubin,Total 0.3 mg/dL (0.2-1.3); Blood Urea Nitrogen 33 mg/dL (9-20); Calcium 8.9 mg/dL (8.4-10.2); Carbon Dioxide 27 mmol/L (22-30); Chloride 100 mmol/L (98-107); Estimated CRCL calculation 18 ml/min; Estimated Glomerular Filt Rate 16; Glucose 122 mg/dL (65-110); Potassium 5.5 mmol/L (3.4-5.0); Sodium 139 mmol/L (137-145)
[2021-12-20 15:14] LABS: Troponin I < 0.012 ng/mL (0.000-0.034)
[2021-12-20 15:27] LABS: Add Urine Microscopic? YES; Appearance Urine Cloudy (Clear); Bilirubin Urine 1+ (Negative); Blood Urine 3+ (Negative); Color Urine Red (Yellow); Glucose Urine UA Negative (Negative); Ketones Urine Trace mg/dL (Negative); Leukocyte Esterase Ur Negative LEU/UL (Negative); Nitrate Urine Negative (Negative); Protein Urine 3+ mg/dL (Negative); pH Urine 7.5 (5.0-9.0)
[2021-12-20 15:38] LABS: RBC Urine >75 /hpf (0-2); WBC Urine 0-3 /hpf
--- NOTE | 2021-12-20 15:46 | PM.IMHP ---
H&P: HPI History of Present Illness Date/Time: 12/20/21 15:46 Chief Complaint: falling Narrative: this is a 81-year-old male patient who has a history of chronic kidney disease, CVA, gout and vascular disease as well as diabetes type 2. The patient came to the emergency room with generalized weakness and multiple falls. The patient was seen by Urology and was diagnosed with UTI he was started on Bactrim. The patient had fallen multiple times landing on his knees. The patient is complaining of generalized weakness since being diagnosed with UTI. Denies any syncopal episodes. Denies any head injuries. The patient is very hard of hearing and his is answering questions for him. His H&H is 11.7 and 35.7. His potassium was found to be 5.5. Creatinine 3.6 with BUN 33. The patient's creatinine is typically in the 2s. 2.2-2.5. Troponin was negative x1. Influenza A/B RSV and COVID are negative. The patient was given IV fluids in the emergency room. The patient is being admitted to observation status on the date of service of 12/20/2021. Review of Systems Review of Systems: See HPI All systems reviewed & are unremarkable except as noted in HPI and below Constitutional: Constitutional: Reports as per HPI and Reports no additional constitutional complaints Eyes: Eyes: Reports as per HPI and Reports no additional eye complaints ENT: Reports system reviewed and no additional complaints, except as documented and Reports Normal hearing present Cardiovascular: Cardiovascular: Reports no additional cardiovascular complaints Respiratory: Respiratory: Reports no additional respiratory complaints and Reports no additional respiratory complaints Gastrointestinal: Gastrointestinal: Reports as per HPI and Reports no additional gastrointestinal complaints Musculoskeletal: Musculoskeletal: Reports no additional musculoskeletal complaints Integumentary/Breasts: Skin/Breast: Reports system reviewed and no additional complaints, except as docu and Reports as per HPI Neurologic: Reports system reviewed and no additional complaints, except as documented, Reports as per HPI and Reports Normal hearing present Psychiatric: Psychiatric: Reports no additional psychiatric complaints and Reports as per HPI Endocrine: Endocrine: Reports no additional endocrine complaints Hematologic/Lymphatic: Hematologic/Lymphatic: Reports no additional hematologic/lymphatic complaints Allergic/Immunologic: Allergic/Immunologic: Reports no additional allergic/immunologic complaints [facility] Past Medical History Medical History (Updated 12/20/21 @ 23:41 by Tammy Sanders NP) Acute cystitis Adult BMI 37.0-37.9 kg/sq m Anxiety disorder, unspecified Benign prostatic hyperplasia (BPH) with straining on urination Benign prostatic hyperplasia with lower urinary tract symptoms Blister of toe BMI 36.0-36.9,adult BMI 40.0-44.9, adult BMI over 35 Bronchitis Cerebrovascular accident (CVA) Chest pain Chest pain CHF (congestive heart failure) Chronic bilateral low back pain with bilateral sciatica Chronic fatigue Chronic obstructive pulmonary disease CKD (chronic kidney disease), stage III Congestive heart failure last echo February of 2019 impaired diastolic relaxation grade 1 estimated ejection fraction of 50-55%. COPD (chronic obstructive pulmonary disease) Coronary artery disease (~2018) CVA (cerebral vascular accident) Dementia Diabetes with ulcer of toe Dyspnea Essential (primary) hypertension Excessive sputum Fatigue Gait instability Gout Gout Groin pain Hearing loss History of kidney stones Hordeolum of right eye Hyperlipidemia Hypertension Hypotension Mixed hyperlipidemia Morbid obesity Obstructive sleep apnea on CPAP GREG on CPAP Osteoarthritis of knees, bilateral Osteoporosis Peripheral arterial disease Peripheral vascular disease Pseudoaneurysm of artery of upper extremity Recurrent UTI Rib pain on left side Somnolence TMJ inflammatio
[2021-12-20 15:55] LABS: Influenza A QL RT-PCR Negative (Negative); Influenza B QL RT-PCR Negative (Negative); RSV RNA, RT-PCR Negative (Negative); SARS-CoV-2 RNA PCR Negative
[2021-12-20 17:26] VITALS: BP 174/90; PULSE 70; RESP 20; O2SAT 99
[2021-12-20] MEDS: SODIUM CHLORIDE 0.9% IV 1,000 ML 999 ML IV CONT (17:49)
[2021-12-20 18:00] VITALS: BMI 37.5
--- NOTE | 2021-12-20 18:20 | ADMGEN ---
This patient, Evan Paige, was admitted to [facility] Surg Room 316-01. Patient/family oriented to hospital policies and general routines including ID bracelet, bed and alarms, visiting hours, pain management, procedures, bathroom and other care routines, personal items, smoking policy, room service/diet, and visiting hours. Information on how to activate the Rapid Response Team has been discussed. Patient/Family are encouraged to report perceived risks to care and to ask questions if they do not understand what they are told or what they should do.
[2021-12-20 18:30] VITALS: BMI 37.5
[2021-12-20 20:00] VITALS: BP 157/60; PULSE 74; RESP 18; TEMP 35.9; O2SAT 94
[2021-12-20 20:45] VITALS: PULSE 87; O2SAT 93
[2021-12-20] MEDS: SODIUM CHLORIDE 0.9% IV 1,000 ML 125 ML IV CONT (21:24)
[2021-12-20 22:00] VITALS: BP 157/60; PULSE 74; RESP 18; TEMP 35.9; O2SAT 94
[2021-12-21 00:04] LABS: Anion Gap 8 mmol/L (8-16); Blood Urea Nitrogen 32 mg/dL (9-20); Calcium 8.6 mg/dL (8.4-10.2); Carbon Dioxide 23 mmol/L (22-30); Chloride 106 mmol/L (98-107); Estimated CRCL calculation 19 ml/min; Estimated Glomerular Filt Rate 17; Glucose 81 mg/dL (65-110); Potassium 5.3 mmol/L (3.4-5.0); Sodium 137 mmol/L (137-145)
[2021-12-21] MEDS: SODIUM CHLORIDE 0.9% IV 1,000 ML 75 ML IV CONT ×2 (00:48→06:34)
[2021-12-21 02:32] VITALS: PULSE 81; O2SAT 92
[2021-12-21] MEDS: traMADol HCL (*CRX) 50 MG TABLET PO (03:24)
[2021-12-21 06:00] VITALS: BP 179/73; PULSE 55; RESP 24; TEMP 36.1; O2SAT 97
[2021-12-21 06:48] LABS: Lactic Acid Reflex 1.1 mmol/L (0.7-2.0)
[2021-12-21 06:49] LABS: Basophils Absolute Auto 0.1 K/mm3 (0.0-0.1); Basophils Percent Auto 1.4 % (0.2-1.2); Eosinophils Absolute Auto 0.4 K/mm3 (0-0.3); Eosinophils Percent Auto 4.4 % (0-4.4); Hematocrit 36.7 % (42.0-52.0); Hemoglobin 11.7 g/dL (14.0-18.0); Immature Granulocyte Absolute 0.04 K/mm3 (0.00-0.031); Immature Granulocyte Percent A 0.4 % (0-0.5); Lymphocytes Absolute Auto 2.14 K/mm3 (0.9-3.2); Lymphocytes Percent Auto 22.8 % (18.3-44.2); Mean Corpuscular HGB Conc 31.9 g/dl (32-36); Mean Corpuscular Hemoglobin 32.9 pg (26-34); Mean Corpuscular Volume 103.1 fl (80-100); Monocytes Absolute Auto 0.5 K/mm3 (0.1-0.6); Monocytes Percent Auto 5.8 % (2.6-8.5); Neutrophils Absolute Auto 6.1 K/mm3 (1.3-6.7); Neutrophils Percent Auto 65.2 % (45.5-73.1); Platelet Count Result 253 k/mm3 (150-375); Red Blood Count 3.56 M/mm3 (4.6-6.20); Red Cell Distribution Width 13.3 % (11.5-14.5); White Blood Count 9.4 K/mm3 (4.5-10.0)
[2021-12-21 06:50] LABS: Hemoglobin A1C 7.1 % (<5.7)
[2021-12-21 07:03] LABS: Anion Gap 11 mmol/L (8-16); Blood Urea Nitrogen 31 mg/dL (9-20); CRP 0.8 mg/dL (<1.0); Calcium 8.6 mg/dL (8.4-10.2); Carbon Dioxide 21 mmol/L (22-30); Chloride 105 mmol/L (98-107); Estimated CRCL calculation 20 ml/min; Estimated Glomerular Filt Rate 19; Glucose 85 mg/dL (65-110); Magnesium 2.7 mg/dL (1.6-2.3); Phosphorus 4.5 mg/dL (2.5-4.5); Sodium 137 mmol/L (137-145)
[2021-12-21 08:00] VITALS: PULSE 55; RESP 24; O2SAT 97
[2021-12-21 08:22] LABS: Glucose Point of Care 86 mg/dl (65-105)
[2021-12-21] MEDS: allopurinoL 300 MG TABLET PO (09:14)
[2021-12-21] MEDS: ASPIRIN 81 MG ENTERIC TABLET PO (09:14)
[2021-12-21] MEDS: SIMVASTATIN 20 MG TABLET 40 MG PO (09:14)
[2021-12-21] MEDS: carvediloL 6.25 MG TABLET PO ×2 (09:14→20:42)
[2021-12-21] MEDS: MAGNESIUM OXIDE 400 MG TABLET PO (09:15)
[2021-12-21] MEDS: MEMANTINE 10 MG TABLET PO (09:15)
[2021-12-21] MEDS: PANTOPRAZOLE SODIUM IV 40 MG VIAL IV PUSH ×2 (09:15→20:42)
[2021-12-21] MEDS: CHOLECALCIFEROL 1,000 UNITS TABLET 2000 UNITS PO (09:15)
[2021-12-21] MEDS: OMEGA 3 POLYUNSAT FATTY ACIDS 1 GM CAP PO ×2 (09:15→17:12)
[2021-12-21] MEDS: PREGABALIN (*CRX) 50 MG CAPSULE PO ×2 (09:17→17:12)
[2021-12-21 11:48] LABS: Glucose Point of Care 136 mg/dl (65-105)
--- NOTE | 2021-12-21 13:23 | PM.CNNEP ---
Assessment and Plan Assessment and plan (1) Acute kidney injury: Code(s): N17.9 - Acute kidney failure, unspecified Status: Acute Assessment and Plan: suspicion falls on use of Bactrim as possible etiology however, the UTI (infection) could have played a role renal ultrasound noted check urine electrolytes and urine eosinophils agree with trial of IVF hydration given his hematuria, consider checking serologies to r/o GN but this seems less likely follow repeat labs and UOP (2) CKD (chronic kidney disease): Code(s): N18.9 - Chronic kidney disease, unspecified Status: Chronic Assessment and Plan: creatinine appears to have fluctuated to extremes in the last 2 years has been as low as 1.4mg/dl but was 2.2mg/dl prior to this admission suspect CKD due to DM, HTN, and age-related change as well as possibly due to frequent UTIs (3) Weakness: Code(s): R53.1 - Weakness Status: Acute Assessment and Plan: due to previous UTI versus JALYN/ARF versus other(?) PT/OT (4) Anemia: Qualifiers: Anemia type: unspecified type Qualified Code(s): D64.9 - Anemia, unspecified Code(s): D64.9 - Anemia, unspecified Status: Acute Assessment and Plan: likely due to JALYN, CKD, and acute illness follow trend of H/H (5) Essential (primary) hypertension: Code(s): I10 - Essential (primary) hypertension Status: Chronic Assessment and Plan: a bit elevated at this time resume home BP medications follow trend of hemodynamics (6) Type 2 diabetes mellitus: Qualifiers: Diabetes mellitus complication detail: with polyneuropathy Diabetes mellitus complication status: with neurologic complications Diabetes mellitus food safety coordinator insulin use: without detention use Qualified Code(s): E11.42 - Type 2 diabetes mellitus with diabetic polyneuropathy Code(s): E11.9 - Type 2 diabetes mellitus without complications Status: Acute Assessment and Plan: follow accuchecks glycemic control Will continue to follow. History of Present Illness Reason for Consult Consult date: 12/21/21 Reason for consult: acute renal failure (on chronic kidney disease) Chief Complaint Chief complaint: weakness History of Present Illness Narrative: The patient is a 81-year-old male with a past medical history as outlined below who presented to [facility] Emergency room with complaints of generalized weakness and several falls. The patient was just recently seen in the office by Urology with a diagnosis of a urinary tract infection. he was prescribed Bactrim for treatment of this infection. It would seem that since that time, he has had multiple falls at home with him landing on his knees and no associated loss of consciousness or any other subjective symptoms prior to or after the fall. This is further complicated by complaints of generalized weakness which she initially attributed to the a for mentioned urinary tract infection. Due to the persistence of the symptoms, he presented to the ER for assessment. Workup and evaluation emergency room demonstrated the patient to be hemodynamically stable and routine blood tests were significant for relative anemia and a significant decline in his kidney function with an associated mildly elevated potassium level. His influenza a/B and Covid swabs were negative. His repeat urinalysis was significant for the presence of hematuria but it would seem previous urinary tract infection seems to be resolving. Given his laboratory abnormalities with regard to his acute kidney injury and mild hyperkalemia in association with the constellation of symptoms that led to his presentation to the emergency room, he was started on IV fluids and subsequently admitted to the hospital for further evaluation and therapy. Since his admission, his kidney function has not really significantly changed
--- NOTE | 2021-12-21 13:23 | P.CONNP_ITS ---
Assessment and Plan Assessment and plan (1) Acute kidney injury: Code(s): N17.9 - Acute kidney failure, unspecified Status: Acute Assessment and Plan: * suspicion falls on use of Bactrim as possible etiology * however, the UTI (infection) could have played a role * renal ultrasound noted * check urine electrolytes and urine eosinophils * agree with trial of IVF hydration * given his hematuria, consider checking serologies to r/o GN but this seems less likely * follow repeat labs and UOP (2) CKD (chronic kidney disease): Code(s): N18.9 - Chronic kidney disease, unspecified Status: Chronic Assessment and Plan: * creatinine appears to have fluctuated to extremes in the last 2 years * has been as low as 1.4mg/dl but was 2.2mg/dl prior to this admission * suspect CKD due to DM, HTN, and age-related change as well as possibly due to frequent UTIs (3) Weakness: Code(s): R53.1 - Weakness Status: Acute Assessment and Plan: * due to previous UTI versus JALYN/ARF versus other(?) * PT/OT (4) Anemia: Qualifiers: Anemia type: unspecified type Qualified Code(s): D64.9 - Anemia, unspecified Code(s): D64.9 - Anemia, unspecified Status: Acute Assessment and Plan: * likely due to JALYN, CKD, and acute illness * follow trend of H/H (5) Essential (primary) hypertension: Code(s): I10 - Essential (primary) hypertension Status: Chronic Assessment and Plan: * a bit elevated at this time * resume home BP medications * follow trend of hemodynamics (6) Type 2 diabetes mellitus: Qualifiers: Diabetes mellitus complication detail: with polyneuropathy Diabetes mellitus complication status: with neurologic complications Diabetes mellitus assisted insulin use: without buttermilk drier operator use Qualified Code(s): E11.42 - Type 2 diabetes mellitus with diabetic polyneuropathy Code(s): E11.9 - Type 2 diabetes mellitus without complications Status: Acute Assessment and Plan: * follow accuchecks * glycemic control Will continue to follow. History of Present Illness Reason for Consult Consult date: 12/21/21 Reason for consult: acute renal failure (on chronic kidney disease) Chief Complaint Chief complaint: weakness History of Present Illness Narrative: The patient is a 81-year-old male with a past medical history as outlined below who presented to [facility] Emergency room with complaints of generalized weakness and several falls. The patient was just recently seen in the office by Urology with a diagnosis of a urinary tract infection. he was prescribed Bactrim for treatment of this infection. It would seem that since that time, he has had multiple falls at home with him landing on his knees and no associated loss of consciousness or any other subjective symptoms prior to or after the fall. This is further complicated by complaints of generalized weakness which she initially attributed to the a for mentioned urinary tract infection. Due to the persistence of the s ymptoms, he presented to the ER for assessment. Workup and evaluation emergency room demonstrated the patient to be hemodynamically stable and routine blood tests were significant for relative anemia and a significant decline in his kidney function with an associated mildly elevated potassium level. His influenza a/B and Covid swabs were negative. His repeat urinalysis was significant for the presence of hematuria but it would seem previous urinary tract infection seems to be
[2021-12-21 14:00] VITALS: BP 156/88; PULSE 57; RESP 16; TEMP 35.8; O2SAT 98
--- NOTE | 2021-12-21 15:44 | PCPTNOTE ---
Hospitalist contacted about bed rest orders. Per hospitalist, pt's bedrest orders can be removes. RN made aware.
--- NOTE | 2021-12-21 16:04 | PM.IMPN ---
Progress Note: A&P Assessment and Plan (1) Acute kidney injury: Code(s): N17.9 - Acute kidney failure, unspecified Status: Acute Assessment and Plan: -the patient had been on Bactrim for UTI which may have caused his acute kidney injury. The patient has 2 more days left but his urine looks like there is just some hematuria in it so we will hold off on any more antibiotics for the UTI. - continue with IV fluids but gently hydrate. -renal ultrasound has been ordered. -hold nephrotoxic medications. - consultation for Nephrology would greatly be appreciated. 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 HPI-Narrative: ?this is a 81-year-old male patient who has a history of chronic kidney disease, CVA, gout and vascular disease as well as diabetes type 2.? The patient came to the emergency room with generalized weakness and multiple falls.? The patient was seen by Urology and was diagnosed with UTI he was started on Bactrim.? The patient had fallen multiple times landing on his knees.? The patient is complaining of generalized weakness since being diagnosed with UTI.? Denies any syncopal episodes.? Denies any head injuries.? The patient is very hard of hearing and his is answering questions for him.? His H&H is 11.7 and 35.7.? His potassium was found to be 5.5.? Creatinine 3.6 with BUN 33.? The patient's creatinine is typically in the? 2s.? 2.2-2.5.? Troponin was negative x1.? Influenza A/B RSV and COVID are negative.? The patient was given IV fluids? in the emergency room.? The patient is being admitted to observation status on the date of service of 12/20/2021. 12/21/2021 interval history: patient has elevated BUN and creatinine compared to baseline patient seems to be dehydrated causing hypotension and falling patient gently hydrated and will monitor patient kidney function patient had a kidney ultrasound which is normal without any hydronephrosis, patient urine showed hematuria patient is seen by Urology and and airdrop systems technician and further recommendation to follow, will have PT OT evaluate the patient patient will benefit with rehab. (2) Weakness: Code(s): R53.1 - Weakness Status: Acute Assessment and Plan: - could be related to the acute kidney injury. -PT and OT have been consulted and their input was greatly be appreciated. (3) CAD (coronary artery disease): Code(s): I25.10 - Atherosclerotic heart disease of redd[place] coronary artery without angina pectoris Status: Acute Assessment and Plan: -Continue with aspirin -continue with [place] 3 -continue simvastatin -continue with Coreg (4) Type 2 diabetes mellitus: Qualifiers: Diabetes mellitus meterman insulin use: without meterman use Diabetes mellitus complication status: with neurologic complications Diabetes mellitus complication detail: with polyneuropathy Qualified Code(s): E11.42 - Type 2 diabetes mellitus with diabetic polyneuropathy Code(s): E11.9 - Type 2 diabetes mellitus without complications Status: Acute Assessment and Plan: -Accu-Cheks AC and HS with sliding scale insulin and hypoglycemic protocol -check A1c. (5) Anemia: Qualifiers: Anemia type: unspecified type Qualified Code(s): D64.9 - Anemia, unspecified Code(s): D64.9 - Anemia, unspecified Status: Acute Assessment and Plan: -Could be related to his renal failure. - patient appears to be at his baseline. (6) Obstructive sleep apnea on CPAP: Code(s): G47.33 - Obstructive sleep apnea (adult) (pediatric); Z99.89 - Dependence on other enabling machines and devices Status: Acute Assessment and Plan: -Continue with CPAP as per home settings with auto titration (7) GERD (gastroesophageal reflux disease): Qualifiers: Esophagitis presence: without esophagitis Qualified Code(s): K21.9 - Gastro-esophageal reflux disease without esophagitis Code(s): K21.9
[2021-12-21 16:24] LABS: Glucose Point of Care 125 mg/dl (65-105)
[2021-12-21 20:42] VITALS: PULSE 77
[2021-12-21 22:00] VITALS: BP 161/67; PULSE 65; RESP 20; TEMP 36; O2SAT 95
[2021-12-22] VITALS (7 sets, daily range): BP systolic 129–145; BP diastolic 50–67; PULSE 61–97; RESP 16–20; TEMP 36.2–36.4; O2SAT 96–98
[2021-12-22 00:43] LABS: Glucose Point of Care 89 mg/dl (65-105)
[2021-12-22 06:43] LABS: Hemoglobin 11.5 g/dL (14.0-18.0); Mean Corpuscular HGB Conc 32.9 g/dl (32-36); Mean Corpuscular Hemoglobin 32.9 pg (26-34); Mean Platelet Volume 10.6 fl (7.4-10.4); Platelet Count Result 236 k/mm3 (150-375); Red Cell Distribution Width 13.4 % (11.5-14.5); White Blood Count 8.6 K/mm3 (4.5-10.0)
[2021-12-22 06:57] LABS: Anion Gap 13 mmol/L (8-16); Blood Urea Nitrogen 27 mg/dL (9-20); Calcium 8.9 mg/dL (8.4-10.2); Carbon Dioxide 22 mmol/L (22-30); Chloride 104 mmol/L (98-107); Estimated CRCL calculation 22 ml/min; Estimated Glomerular Filt Rate 20; Glucose 94 mg/dL (65-110); Magnesium 2.5 mg/dL (1.6-2.3); Sodium 139 mmol/L (137-145)
[2021-12-22 07:46] LABS: Glucose Point of Care 94 mg/dl (65-105)
[2021-12-22] MEDS: PANTOPRAZOLE SODIUM IV 40 MG VIAL IV PUSH ×2 (08:00→21:03)
[2021-12-22] MEDS: MAGNESIUM OXIDE 400 MG TABLET PO (08:00)
[2021-12-22] MEDS: OMEGA 3 POLYUNSAT FATTY ACIDS 1 GM CAP PO ×2 (08:00→16:50)
[2021-12-22] MEDS: ASPIRIN 81 MG ENTERIC TABLET PO (08:00)
[2021-12-22] MEDS: allopurinoL 300 MG TABLET PO (08:00)
[2021-12-22] MEDS: carvediloL 6.25 MG TABLET PO ×2 (08:01→21:02)
[2021-12-22] MEDS: MEMANTINE 10 MG TABLET PO (08:01)
[2021-12-22] MEDS: PREGABALIN (*CRX) 50 MG CAPSULE PO ×2 (08:01→16:50)
[2021-12-22] MEDS: CHOLECALCIFEROL 1,000 UNITS TABLET 2000 UNITS PO (08:01)
[2021-12-22] MEDS: SIMVASTATIN 20 MG TABLET 40 MG PO (08:01)
[2021-12-22] MEDS: ACETAMINOPHEN 500 MG TABLET PO (09:30)
[2021-12-22] MEDS: cefTRIAXone 2 GM in SODIUM CHLORIDE 0.9% IV 100 ML 200 ML IVPB (09:30)
[2021-12-22] MEDS: SODIUM CHLORIDE 0.9% IV 1,000 ML 75 ML IV CONT (10:05)
[2021-12-22 10:35] LABS: Creatinine Urine 89.4 mg/dL; Total Protein Urine Random 177 mg/dL; Ur Ttl Prot Creatinine Ratio 1.98 mg/mg (0-0.20)
[2021-12-22 10:37] LABS: Sodium Urine Random 124 meq/L
[2021-12-22 11:47] LABS: Glucose Point of Care 202 mg/dl (65-105)
[2021-12-22] MEDS: INSULIN ASPART (*BKC) 100 UNITS/ML SUB-Q (11:50)
--- NOTE | 2021-12-22 12:38 | WPDURCON ---
Assessment and Plan Assessment and plan (1) Acute kidney injury: Code(s): N17.9 - Acute kidney failure, unspecified Status: Acute (2) Hematuria: Qualifiers: Hematuria type: unspecified type Qualified Code(s): R31.9 - Hematuria, unspecified Code(s): R31.9 - Hematuria, unspecified Status: Acute (3) BPH loc w urin obs/LUTS: Code(s): N40.1 - Benign prostatic hyperplasia with lower urinary tract symptoms Status: Acute (4) Chronic cystitis: Code(s): N30.20 - Other chronic cystitis without hematuria Status: Acute Assessment and Plan: Hemturia d/t underling BPH complicated by recurrent UTI's. Most recent urine in our office 10-days ago grew staph. saprophyticus. Await current urine culture results. The only thing I might suggest, which I do not believe has been tried before with him, would be suppressive antibiotics i.e. Keflex 500 mg daily ) subsequent to treatment for her infection. No upper urinary tract obstruction on renal ultrasonography that would explain JALYN Urology Consult Note HPI Date Seen: 12/22/21 Requesting Physician: Marjorie Harry DO Primary Care Provider: Eyad Perdomo MD Consult Narrative Narrative: Evan Paige is a 81 year old male Who is well known to our practice with a long history of BPH, intermittent episodes of hematuria (in part due to BPH and in part to hemorrhagic cystitis ) and recurrent urinary tract infections. He was seen approximately 10 days ago where urine culture grows Staph saprophyticus. He was treated with Bactrim. He is now admitted with several episodes of falling and generalized weakness since starting the Bactrim. He has noted in the hospital to initially have some dark, perhaps slightly blood tinged, urine. He denies significant voiding symptoms at this time, specifically denying dysuria urgency. He does have chronic urinary frequency secondary to overactive bladder. This seems to have improved somewhat since starting a new overactive bladder medicine, Gemtesa. His urine has cleared with IV hydration and there is no longer gross hematuria. Review of Systems Cardiovascular: Cardiovascular: Denies chest pain, Denies lightheadedness, Denies palpitations and Denies dyspnea Respiratory: Respiratory: Denies dyspnea Gastrointestinal: Gastrointestinal: Denies diarrhea, Denies nausea and Denies vomiting Genitourinary: Genitourinary: Denies hematuria and Denies dysuria Endocrine: Endocrine: Denies palpitations [facility] Past Medical History Medical History (Updated 12/22/21 @ 12:42 by Mj Shelton MD) Acute cystitis Adult BMI 37.0-37.9 kg/sq m Anxiety disorder, unspecified Benign prostatic hyperplasia (BPH) with straining on urination Benign prostatic hyperplasia with lower urinary tract symptoms Blister of toe BMI 36.0-36.9,adult BMI 40.0-44.9, adult BMI over 35 Bronchitis Cerebrovascular accident (CVA) Chest pain Chest pain CHF (congestive heart failure) Chronic bilateral low back pain with bilateral sciatica Chronic fatigue Chronic obstructive pulmonary disease CKD (chronic kidney disease), stage III Congestive heart failure last echo February of 2019 impaired diastolic relaxation grade 1 estimated ejection fraction of 50-55%. COPD (chronic obstructive pulmonary disease) Coronary artery disease (~2019) CVA (cerebral vascular accident) Dementia Diabetes with ulcer of toe Dyspnea Essential (primary) hypertension Excessive sputum Fatigue Gait instability Gout Gout Groin pain Hearing loss History of kidney stones Hordeolum of right eye Hyperlipidemia Hypertension Hypotension Mixed hyperlipidemia Morbid obesity Obstructive sleep apnea on CPAP GREG on CPAP Osteoarthritis of knees, bilateral Osteoporosis Peripheral arterial disease Peripheral vascular disease Pseudoaneurysm of artery of upper extremity Recurrent UTI Rib pain on left side Somnolence TMJ inflammation Type 2 diabe
--- NOTE | 2021-12-22 12:57 | PM.IMPN ---
Progress Note: A&P Assessment and Plan (1) Acute kidney injury: Code(s): N17.9 - Acute kidney failure, unspecified Status: Acute Assessment and Plan: -the patient had been on Bactrim for UTI which may have caused his acute kidney injury. The patient has 2 more days left but his urine looks like there is just some hematuria in it so we will hold off on any more antibiotics for the UTI. - continue with IV fluids but gently hydrate. -renal ultrasound has been ordered. -hold nephrotoxic medications. - consultation for Nephrology would greatly be appreciated. 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 HPI-Narrative: ?this is a 81-year-old male patient who has a history of chronic kidney disease, CVA, gout and vascular disease as well as diabetes type 2.? The patient came to the emergency room with generalized weakness and multiple falls.? The patient was seen by Urology and was diagnosed with UTI he was started on Bactrim.? The patient had fallen multiple times landing on his knees.? The patient is complaining of generalized weakness since being diagnosed with UTI.? Denies any syncopal episodes.? Denies any head injuries.? The patient is very hard of hearing and his is answering questions for him.? His H&H is 11.7 and 35.7.? His potassium was found to be 5.5.? Creatinine 3.6 with BUN 33.? The patient's creatinine is typically in the? 2s.? 2.2-2.5.? Troponin was negative x1.? Influenza A/B RSV and COVID are negative.? The patient was given IV fluids? in the emergency room.? The patient is being admitted to observation status on the date of service of 12/20/2021. 12/22/2021 interval history: patient has elevated BUN and creatinine compared to baseline patient seems to be dehydrated causing hypotension and falling patient gently hydrated and will monitor patient kidney function, patient had a kidney ultrasound which is normal without any hydronephrosis, patient urine showed hematuria patient is seen by Urology and and auto dealership porter and further recommendation to follow, patient was seen by urologist suspect patient may chronic UTI and recommended suppressive with kefelex, also upon arrival patient chest x-ray was suspicious for pneumonia started patient on ceftriaxone and azithromycin, will have PT OT evaluate the patient patient will benefit with rehab. (2) Weakness: Code(s): R53.1 - Weakness Status: Acute Assessment and Plan: - could be related to the acute kidney injury. -PT and OT have been consulted and their input was greatly be appreciated. (3) CAD (coronary artery disease): Code(s): I25.10 - Atherosclerotic heart disease of [place] coronary artery without angina pectoris Status: Acute Assessment and Plan: -Continue with aspirin -continue with [place] 3 -continue simvastatin -continue with Coreg (4) Type 2 diabetes mellitus: Qualifiers: Diabetes mellitus moth exterminator insulin use: without moth exterminator use Diabetes mellitus complication status: with neurologic complications Diabetes mellitus complication detail: with polyneuropathy Qualified Code(s): E11.42 - Type 2 diabetes mellitus with diabetic polyneuropathy Code(s): E11.9 - Type 2 diabetes mellitus without complications Status: Acute Assessment and Plan: -Accu-Cheks AC and HS with sliding scale insulin and hypoglycemic protocol -check A1c. (5) Anemia: Qualifiers: Anemia type: unspecified type Qualified Code(s): D64.9 - Anemia, unspecified Code(s): D64.9 - Anemia, unspecified Status: Acute Assessment and Plan: -Could be related to his renal failure. - patient appears to be at his baseline. (6) Obstructive sleep apnea on CPAP: Code(s): G47.33 - Obstructive sleep apnea (adult) (pediatric); Z99.89 - Dependence on other enabling machines and devices Status: Acute Assessment and Plan: -Continue with CPAP as per home settings with auto titra
--- NOTE | 2021-12-22 13:25 | PM.PNNEP ---
Progress Note: A&P Assessment and Plan (1) Acute kidney injury: Code(s): N17.9 - Acute kidney failure, unspecified Status: Acute Assessment and Plan: suspicion falls on use of Bactrim as possible etiology however, the UTI (infection) could have played a role renal ultrasound noted check urine electrolytes and urine eosinophils agree with trial of IVF hydration given his hematuria, consider checking serologies to r/o GN but this seems less likely follow repeat labs and UOP (2) CKD (chronic kidney disease): Code(s): N18.9 - Chronic kidney disease, unspecified Status: Chronic Assessment and Plan: creatinine appears to have fluctuated to extremes in the last 2 years has been as low as 1.4mg/dl but was 2.2mg/dl prior to this admission suspect CKD due to DM, HTN, and age-related change as well as possibly due to frequent UTIs (3) Weakness: Code(s): R53.1 - Weakness Status: Acute Assessment and Plan: due to previous UTI versus JALYN/ARF versus other(?) PT/OT (4) Anemia: Qualifiers: Anemia type: unspecified type Qualified Code(s): D64.9 - Anemia, unspecified Code(s): D64.9 - Anemia, unspecified Status: Acute Assessment and Plan: likely due to JALYN, CKD, and acute illness follow trend of H/H (5) Essential (primary) hypertension: Code(s): I10 - Essential (primary) hypertension Status: Chronic Assessment and Plan: reasonable control onhome BP medications follow trend of hemodynamics (6) Type 2 diabetes mellitus: Qualifiers: Diabetes mellitus continuous churn buttermaker insulin use: without continuous churn buttermaker use Diabetes mellitus complication status: with neurologic complications Diabetes mellitus complication detail: with polyneuropathy Qualified Code(s): E11.42 - Type 2 diabetes mellitus with diabetic polyneuropathy Code(s): E11.9 - Type 2 diabetes mellitus without complications Status: Acute Assessment and Plan: follow accuchecks glycemic control Will continue to follow. Subjective Date/time seen: 12/22/21 13:25 Seems to be doing a bit better at the time of my visit, hematuria is better as is kidney function/creatinine by AM labs; only complaint is that of generalized weakness; no other apparent issues voiced; no events overnight or earlier this AM. Exam Narrative: General: WD/WN male in NAD Heart: normal S1 and S2; no rub Lungs: clear to auscultation Abdomen: soft, nontender, nondistended, positive bowel sounds Extremities: no cyanosis or clubbing; no edema Skin: warm and dry Objective Data Vital Signs Vital Signs: Vital Signs Temp Pulse Resp BP Pulse Ox O2 Del Method 12/22/21 08:00 Room Air 12/22/21 08:01 88 12/22/21 06:00 36.2 C L 97 18 139/59 L 98 12/21/21 20:00 Room Air 12/21/21 22:00 36.0 C L 65 20 161/67 H 95 12/21/21 20:42 77 Intake/Output Intake/Output: Intake & Output 12/19/21 12/20/21 12/21/21 12/22/21 23:59 23:59 23:59 23:59 Intake Total 1000 3610 780 Output Total 150 400 Balance 1000 3460 380 Meds/Results Medications: Active Medications Generic Name Dose Route Start Last Admin Trade Name Ángelq PRN Reason Stop Dose Admin Acetaminophen 500 mg 12/20/21 23:40 12/22/21 09:30 Acetaminophen 500 Mg Tablet PO 500 mg Q6H PRN Administration Pain Rated 1-3 Allopurinol 300 mg 12/21/21 09:00 12/22/21 08:00 Allopurinol 300 Mg Tablet PO 300 mg DAILY ALLIE Administration Aspirin 81 mg 12/21/21 09:00 12/22/21 08:00 Aspirin 81 Mg Enteric Tablet PO 81 mg DAILY ALLIE Administration Carvedilol 6.25 mg 12/20/21 23:45 12/22/21 08:01 Carvedilol 6.25 Mg Tablet PO 6.25 mg Q12HR ALLIE Administration Dextrose 12.5 gm 12/20/21 23:27 Dextrose 50% 25 Gm/50 Ml Syringe IV PUSH PRN PRN Hypoglycemia Protocol Fish Oil 1 gm
--- NOTE | 2021-12-22 13:25 | P.PNNP_ITS ---
Progress Note: A&P Assessment and Plan (1) Acute kidney injury: Code(s): N17.9 - Acute kidney failure, unspecified Status: Acute Assessment and Plan: * suspicion falls on use of Bactrim as possible etiology * however, the UTI (infection) could have played a role * renal ultrasound noted * check urine electrolytes and urine eosinophils * agree with trial of IVF hydration * given his hematuria, consider checking serologies to r/o GN but this seems less likely * follow repeat labs and UOP (2) CKD (chronic kidney disease): Code(s): N18.9 - Chronic kidney disease, unspecified Status: Chronic Assessment and Plan: * creatinine appears to have fluctuated to extremes in the last 2 years * has been as low as 1.4mg/dl but was 2.2mg/dl prior to this admission * suspect CKD due to DM, HTN, and age-related change as well as possibly due to frequent UTIs (3) Weakness: Code(s): R53.1 - Weakness Status: Acute Assessment and Plan: * due to previous UTI versus JALYN/ARF versus other(?) * PT/OT (4) Anemia: Qualifiers: Anemia type: unspecified type Qualified Code(s): D64.9 - Anemia, unspecified Code(s): D64.9 - Anemia, unspecified Status: Acute Assessment and Plan: * likely due to JALYN, CKD, and acute illness * follow trend of H/H (5) Essential (primary) hypertension: Code(s): I10 - Essential (primary) hypertension Status: Chronic Assessment and Plan: * reasonable control * onhome BP medications * follow trend of hemodynamics (6) Type 2 diabetes mellitus: Qualifiers: Diabetes mellitus long-term insulin use: without vermin exterminator use Diabetes mellitus complication status: with neurologic complications Diabetes mellitus complication detail: with polyneuropathy Qualified Code(s): E11.42 - Type 2 diabetes mellitus with diabetic polyneuropathy Code(s): E11.9 - Type 2 diabetes mellitus without complications Status: Acute Assessment and Plan: * follow accuchecks * glycemic control Will continue to follow. Subjective Date/time seen: 12/22/21 13:25 Seems to be doing a bit better at the time of my visit, hematuria is better as is kidney function/creatinine by AM labs; only complaint is that of generalized weakness; no other apparent issues voiced; no events overnight or earlier this AM. Exam Narrative: General: WD/WN male in NAD Heart: normal S1 and S2; no rub Lungs: clear to auscultation Abdomen: soft, nontender, nondistended, positive bowel sounds Extremities: no cyanosis or clubbing; no edema Skin: warm and dry Objective Data Vital Signs Vital Signs: Vital Signs Temp Pulse Resp BP Pulse Ox O2 Del Method 12/22/21 08:00 Room Air 12/22/21 08:01 88 12/22/21 06:00 36.2 C L 97 18 139/59 L 98 12/21/21 20:00 Room Air 12/21/21 22:00 36.0 C L 65 20 161/67 H 95 12/21/21 20:42 77 Intake/Output Intake/Output: Intake & Output 12/19/21 12/20/21 12/21/21 12/22/21 23:59 23:59 23:59 23:59 Intake Total 1000 3610 780 Output Total 150 400 Balance 1000 3460 380 Meds/Results Medications: Active Medications
[2021-12-22 16:33] LABS: Glucose Point of Care 88 mg/dl (65-105)
[2021-12-22] MEDS: traMADol HCL (*CRX) 50 MG TABLET PO (18:37)
[2021-12-22 21:43] LABS: Glucose Point of Care 127 mg/dl (65-105)
[2021-12-23] VITALS (7 sets, daily range): BP systolic 132–195; BP diastolic 55–84; PULSE 62–82; RESP 14–20; TEMP 35.9–36.3; O2SAT 94–100
[2021-12-23] MEDS: SODIUM CHLORIDE 0.9% IV 1,000 ML 75 ML IV CONT (00:10)
[2021-12-23] MEDS: traMADol HCL (*CRX) 50 MG TABLET PO ×2 (07:58→15:27)
[2021-12-23] MEDS: PREGABALIN (*CRX) 50 MG CAPSULE PO ×2 (08:00→16:38)
[2021-12-23] MEDS: MEMANTINE 10 MG TABLET PO (08:00)
[2021-12-23] MEDS: ASPIRIN 81 MG ENTERIC TABLET PO (08:00)
[2021-12-23] MEDS: PANTOPRAZOLE SODIUM IV 40 MG VIAL IV PUSH ×2 (08:00→20:28)
[2021-12-23] MEDS: MAGNESIUM OXIDE 400 MG TABLET PO (08:00)
[2021-12-23] MEDS: allopurinoL 300 MG TABLET PO (08:00)
[2021-12-23] MEDS: CHOLECALCIFEROL 1,000 UNITS TABLET 2000 UNITS PO (08:00)
[2021-12-23] MEDS: SIMVASTATIN 20 MG TABLET 40 MG PO (08:00)
[2021-12-23] MEDS: carvediloL 6.25 MG TABLET PO ×2 (08:00→20:29)
[2021-12-23] MEDS: OMEGA 3 POLYUNSAT FATTY ACIDS 1 GM CAP PO ×2 (08:00→16:38)
[2021-12-23] MEDS: cefTRIAXone 2 GM in SODIUM CHLORIDE 0.9% IV 100 ML 200 ML IVPB (08:01)
[2021-12-23 08:34] LABS: Glucose Point of Care 113 mg/dl (65-105)
[2021-12-23 10:17] LABS: Hematocrit 32.5 % (42.0-52.0); Hemoglobin 10.7 g/dL (14.0-18.0); Mean Corpuscular HGB Conc 32.9 g/dl (32-36); Mean Corpuscular Hemoglobin 32.4 pg (26-34); Mean Corpuscular Volume 98.5 fl (80-100); Mean Platelet Volume 10.9 fl (7.4-10.4); Platelet Count Result 218 k/mm3 (150-375); Red Cell Distribution Width 13.2 % (11.5-14.5); White Blood Count 8.7 K/mm3 (4.5-10.0)
[2021-12-23 10:26] LABS: Albumin Level 3.3 g/dL (3.5-5.1); Anion Gap 11 mmol/L (8-16); Blood Urea Nitrogen 25 mg/dL (9-20); Calcium 8.4 mg/dL (8.4-10.2); Carbon Dioxide 22 mmol/L (22-30); Chloride 106 mmol/L (98-107); Estimated CRCL calculation 22 ml/min; Estimated Glomerular Filt Rate 21; Glucose 160 mg/dL (65-110); Magnesium 2.3 mg/dL (1.6-2.3); Phosphorus 4.7 mg/dL (2.5-4.5); Sodium 139 mmol/L (137-145)
[2021-12-23 11:59] LABS: Glucose Point of Care 195 mg/dl (65-105)
--- NOTE | 2021-12-23 12:28 | PM.PNNEP ---
Progress Note: A&P Assessment and Plan (1) Acute kidney injury: Code(s): N17.9 - Acute kidney failure, unspecified Status: Acute Assessment and Plan: suspicion falls on use of Bactrim as possible etiology however, the UTI (infection) could have played a role as well renal ultrasound noted urine electrolytes and urine eosinophils pending trial of gentle IVF hydration follow repeat labs and UOP (2) CKD (chronic kidney disease): Code(s): N18.9 - Chronic kidney disease, unspecified Status: Chronic Assessment and Plan: creatinine appears to have fluctuated to extremes in the last 2 years has been as low as 1.4mg/dl but was 2.2mg/dl prior to this admission suspect CKD due to DM, HTN, and age-related change as well as possibly due to frequent UTIs (3) Weakness: Code(s): R53.1 - Weakness Status: Acute Assessment and Plan: due to previous UTI versus JALYN/ARF versus other(?) PT/OT (4) Anemia: Qualifiers: Anemia type: unspecified type Qualified Code(s): D64.9 - Anemia, unspecified Code(s): D64.9 - Anemia, unspecified Status: Acute Assessment and Plan: likely due to JALYN, CKD, and acute illness follow trend of H/H (5) Essential (primary) hypertension: Code(s): I10 - Essential (primary) hypertension Status: Chronic Assessment and Plan: reasonable control onhome BP medications follow trend of hemodynamics (6) Type 2 diabetes mellitus: Qualifiers: Diabetes mellitus terminal makeup operator insulin use: without skilled nursing use Diabetes mellitus complication status: with neurologic complications Diabetes mellitus complication detail: with polyneuropathy Qualified Code(s): E11.42 - Type 2 diabetes mellitus with diabetic polyneuropathy Code(s): E11.9 - Type 2 diabetes mellitus without complications Status: Acute Assessment and Plan: follow accuchecks glycemic control Will continue to follow. Subjective Date/time seen: 12/23/21 12:28 Seems to be slowly improving in general along with renal function/creatinine; no apparent distress voiced on my visit; no issues/events overnight or earlier this morning. Exam Narrative: General: WD/WN male in NAD Heart: normal S1 and S2; no rub Lungs: clear to auscultation Abdomen: soft, nontender, nondistended, positive bowel sounds Extremities: no cyanosis or clubbing; no edema Skin: warm and intact Objective Data Vital Signs Vital Signs: Vital Signs Temp Pulse Resp BP Pulse Ox O2 Del Method FiO2 12/23/21 10:50 94 Room Air 12/23/21 08:00 Room Air 12/23/21 08:00 82 12/23/21 06:00 36.3 C L 67 20 137/55 L 94 12/22/21 20:00 16 CPAP 12/22/21 20:20 65 20 96 Room Air 21 12/22/21 21:06 36.4 C 65 20 129/50 L 96 12/22/21 21:02 66 Intake/Output Intake/Output: Intake & Output 12/20/21 12/21/21 12/22/21 12/23/21 23:59 23:59 23:59 23:59 Intake Total 1000 3610 2130 680 Output Total 150 1250 600 Balance 1000 3460 880 80 Meds/Results Medications: Active Medications Generic Name Dose Route Start Last Admin Trade Name Freq PRN Reason Stop Dose Admin Acetaminophen 500 mg 12/20/21 23:40 12/22/21 09:30 Acetaminophen 500 Mg Tablet PO 500 mg Q6H PRN Administration Pain Rated 1-3 Allopurinol 300 mg 12/21/21 09:00 12/23/21 08:00 Allopurinol 300 Mg Tablet PO 300 mg DAILY ALLIE Administration Aspirin 81 mg 12/21/21 09:00 12/23/21 08:00 Aspirin 81 Mg Enteric Tablet PO 81 mg DAILY ALLIE Administration Carvedilol 6.25 mg 12/20/21 23:45 12/23/21 08:00 Carvedilol 6.25 Mg Tablet PO 6.25 mg Q12HR ALLIE Administration Dextrose 12.5 gm 12/20/21 23:27 Dextrose 50% 25 Gm/50 Ml Syringe IV PUSH PRN PRN Hypoglycemia Protocol Fish Oil 1 gm 12/21/21 09:00 12/23/21 08:00 [place] 3 Polyunsat Fatty
--- NOTE | 2021-12-23 12:28 | P.PNNP_ITS ---
Progress Note: A&P Assessment and Plan (1) Acute kidney injury: Code(s): N17.9 - Acute kidney failure, unspecified Status: Acute Assessment and Plan: * suspicion falls on use of Bactrim as possible etiology * however, the UTI (infection) could have played a role as well * renal ultrasound noted * urine electrolytes and urine eosinophils pending * trial of gentle IVF hydration * follow repeat labs and UOP (2) CKD (chronic kidney disease): Code(s): N18.9 - Chronic kidney disease, unspecified Status: Chronic Assessment and Plan: * creatinine appears to have fluctuated to extremes in the last 2 years * has been as low as 1.4mg/dl but was 2.2mg/dl prior to this admission * suspect CKD due to DM, HTN, and age-related change as well as possibly due to frequent UTIs (3) Weakness: Code(s): R53.1 - Weakness Status: Acute Assessment and Plan: * due to previous UTI versus JALYN/ARF versus other(?) * PT/OT (4) Anemia: Qualifiers: Anemia type: unspecified type Qualified Code(s): D64.9 - Anemia, unspecified Code(s): D64.9 - Anemia, unspecified Status: Acute Assessment and Plan: * likely due to JALYN, CKD, and acute illness * follow trend of H/H (5) Essential (primary) hypertension: Code(s): I10 - Essential (primary) hypertension Status: Chronic Assessment and Plan: * reasonable control * onhome BP medications * follow trend of hemodynamics (6) Type 2 diabetes mellitus: Qualifiers: Diabetes mellitus longterm insulin use: without longterm use Diabetes mellitus complication status: with neurologic complications Diabetes mellitus complication detail: with polyneuropathy Qualified Code(s): E11.42 - Type 2 diabetes mellitus with diabetic polyneuropathy Code(s): E11.9 - Type 2 diabetes mellitus without complications Status: Acute Assessment and Plan: * follow accuchecks * glycemic control Will continue to follow. Subjective Date/time seen: 12/23/21 12:28 Seems to be slowly improving in general along with renal function/creatinine; no apparent distress voiced on my visit; no issues/events overnight or earlier this morning. Exam Narrative: General: WD/WN male in NAD Heart: normal S1 and S2; no rub Lungs: clear to auscultation Abdomen: soft, nontender, nondistended, positive bowel sounds Extremities: no cyanosis or clubbing; no edema Skin: warm and intact Objective Data Vital Signs Vital Signs: Vital Signs Temp Pulse Resp BP Pulse Ox O2 Del Method FiO2 12/23/21 10:50 94 Room Air 12/23/21 08:00 Room Air 12/23/21 08:00 82 12/23/21 06:00 36.3 C L 67 20 137/55 L 94 12/22/21 20:00 16 CPAP 12/22/21 20:20 65 20 96 Room Air 21 12/22/21 21:06 36.4 C 65 20 129/50 L 96 12/22/21 21:02 66 Intake/Output Intake/Output: Intake & Output 12/20/21 12/21/21 12/22/21 12/23/21 23:59 23:59 23:59 23:59 Intake Total 1000 3610 2130 680 Output Total 150 1250 600 Balance 1000 3460 880 80 Meds/Results Medications: Active Medications Generic Name Dose Route Start [place]
--- NOTE | 2021-12-23 14:05 | PM.IMPN ---
Progress Note: A&P Assessment and Plan (1) Acute kidney injury: Code(s): N17.9 - Acute kidney failure, unspecified Status: Acute Assessment and Plan: -the patient had been on Bactrim for UTI which may have caused his acute kidney injury. The patient has 2 more days left but his urine looks like there is just some hematuria in it so we will hold off on any more antibiotics for the UTI. - continue with IV fluids but gently hydrate. -renal ultrasound has been ordered. -hold nephrotoxic medications. - consultation for Nephrology would greatly be appreciated. 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 HPI-Narrative: ?this is a 81-year-old male patient who has a history of chronic kidney disease, CVA, gout and vascular disease as well as diabetes type 2.? The patient came to the emergency room with generalized weakness and multiple falls.? The patient was seen by Urology and was diagnosed with UTI he was started on Bactrim.? The patient had fallen multiple times landing on his knees.? The patient is complaining of generalized weakness since being diagnosed with UTI.? Denies any syncopal episodes.? Denies any head injuries.? The patient is very hard of hearing and his is answering questions for him.? His H&H is 11.7 and 35.7.? His potassium was found to be 5.5.? Creatinine 3.6 with BUN 33.? The patient's creatinine is typically in the? 2s.? 2.2-2.5.? Troponin was negative x1.? Influenza A/B RSV and COVID are negative.? The patient was given IV fluids? in the emergency room.? The patient is being admitted to observation status on the date of service of 12/20/2021. 12/23/2021 interval history: patient has elevated BUN and creatinine compared to baseline patient seems to be dehydrated causing hypotension and falling, upon arrival patient creatinine was 3.6 and is now trending down today it is 2.9, patient gently hydrated and will monitor patient kidney function, patient had a kidney ultrasound which is normal without any hydronephrosis, patient urine showed hematuria patient is seen by Urology and and ceo and president and further recommendation to follow, patient was seen by urologist suspect patient may have chronic UTI and recommended suppressive with kefelex, also upon arrival patient chest x-ray was suspicious for pneumonia started patient on ceftriaxone and azithromycin, will repeat chest x-ray on Saturday, patient is present answered all her questions, will have PT OT evaluate the patient patient will benefit with rehab. (2) Weakness: Code(s): R53.1 - Weakness Status: Acute Assessment and Plan: - could be related to the acute kidney injury. -PT and OT have been consulted and their input was greatly be appreciated. (3) CAD (coronary artery disease): Code(s): I25.10 - Atherosclerotic heart disease of [place] coronary artery without angina pectoris Status: Acute Assessment and Plan: -Continue with aspirin -continue with [place] 3 -continue simvastatin -continue with Coreg (4) Type 2 diabetes mellitus: Qualifiers: Diabetes mellitus fpc insulin use: without fpc use Diabetes mellitus complication status: with neurologic complications Diabetes mellitus complication detail: with polyneuropathy Qualified Code(s): E11.42 - Type 2 diabetes mellitus with diabetic polyneuropathy Code(s): E11.9 - Type 2 diabetes mellitus without complications Status: Acute Assessment and Plan: -Accu-Cheks AC and HS with sliding scale insulin and hypoglycemic protocol -check A1c. (5) Anemia: Qualifiers: Anemia type: unspecified type Qualified Code(s): D64.9 - Anemia, unspecified Code(s): D64.9 - Anemia, unspecified Status: Acute Assessment and Plan: -Could be related to his renal failure. - patient appears to be at his baseline. (6) Obstructive sleep apnea on CPAP: Code(s): G47.33 - Obstructive sleep apnea (adult)
[2021-12-23 16:39] LABS: Glucose Point of Care 116 mg/dl (65-105)
[2021-12-23 20:44] LABS: Glucose Point of Care 107 mg/dl (65-105)
[2021-12-24] MEDS: SODIUM CHLORIDE 0.9% IV 1,000 ML 75 ML IV CONT ×2 (05:30→16:14)
[2021-12-24 05:48] VITALS: BP 178/74; PULSE 89; RESP 14; TEMP 36.1; O2SAT 95
[2021-12-24 06:50] LABS: Hematocrit 35.8 % (42.0-52.0); Hemoglobin 11.5 g/dL (14.0-18.0); Mean Corpuscular HGB Conc 32.1 g/dl (32-36); Mean Corpuscular Hemoglobin 32.9 pg (26-34); Mean Corpuscular Volume 102.3 fl (80-100); Mean Platelet Volume 10.8 fl (7.4-10.4); Platelet Count Result 215 k/mm3 (150-375); Red Cell Distribution Width 13.4 % (11.5-14.5); White Blood Count 8.1 K/mm3 (4.5-10.0)
[2021-12-24 07:03] LABS: Albumin Level 3.4 g/dL (3.5-5.1); Anion Gap 12 mmol/L (8-16); Blood Urea Nitrogen 24 mg/dL (9-20); Calcium 8.4 mg/dL (8.4-10.2); Carbon Dioxide 23 mmol/L (22-30); Chloride 104 mmol/L (98-107); Estimated CRCL calculation 25 ml/min; Estimated Glomerular Filt Rate 24; Glucose 122 mg/dL (65-110); Phosphorus 4.8 mg/dL (2.5-4.5); Potassium 4.3 mmol/L (3.4-5.0); Sodium 139 mmol/L (137-145)
[2021-12-24 07:41] LABS: Glucose Point of Care 150 mg/dl (65-105)
[2021-12-24 08:15] VITALS: PULSE 80
[2021-12-24] MEDS: CHOLECALCIFEROL 1,000 UNITS TABLET 2000 UNITS PO (08:15)
[2021-12-24] MEDS: OMEGA 3 POLYUNSAT FATTY ACIDS 1 GM CAP PO ×2 (08:15→16:15)
[2021-12-24] MEDS: PANTOPRAZOLE SODIUM IV 40 MG VIAL IV PUSH ×2 (08:15→20:55)
[2021-12-24] MEDS: carvediloL 6.25 MG TABLET PO ×2 (08:15→20:55)
[2021-12-24] MEDS: SIMVASTATIN 20 MG TABLET 40 MG PO (08:15)
[2021-12-24] MEDS: MAGNESIUM OXIDE 400 MG TABLET PO (08:15)
[2021-12-24] MEDS: ASPIRIN 81 MG ENTERIC TABLET PO (08:15)
[2021-12-24] MEDS: PREGABALIN (*CRX) 50 MG CAPSULE PO ×2 (08:15→16:14)
[2021-12-24] MEDS: allopurinoL 300 MG TABLET PO (08:15)
[2021-12-24] MEDS: cefTRIAXone 2 GM in SODIUM CHLORIDE 0.9% IV 100 ML IVPB (08:15)
[2021-12-24] MEDS: MEMANTINE 10 MG TABLET PO (08:15)
[2021-12-24] MEDS: traMADol HCL (*CRX) 50 MG TABLET PO ×3 (08:22→16:19)
--- NOTE | 2021-12-24 10:12 | PM.IMPN ---
Progress Note: A&P Assessment and Plan (1) Acute kidney injury: Code(s): N17.9 - Acute kidney failure, unspecified Status: Acute Assessment and Plan: -the patient had been on Bactrim for UTI which may have caused his acute kidney injury. The patient has 2 more days left but his urine looks like there is just some hematuria in it so we will hold off on any more antibiotics for the UTI. - continue with IV fluids but gently hydrate. -renal ultrasound has been ordered. -hold nephrotoxic medications. - consultation for Nephrology would greatly be appreciated. 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 HPI-Narrative: ?this is a 81-year-old male patient who has a history of chronic kidney disease, CVA, gout and vascular disease as well as diabetes type 2.? The patient came to the emergency room with generalized weakness and multiple falls.? The patient was seen by Urology and was diagnosed with UTI he was started on Bactrim.? The patient had fallen multiple times landing on his knees.? The patient is complaining of generalized weakness since being diagnosed with UTI.? Denies any syncopal episodes.? Denies any head injuries.? The patient is very hard of hearing and his is answering questions for him.? His H&H is 11.7 and 35.7.? His potassium was found to be 5.5.? Creatinine 3.6 with BUN 33.? The patient's creatinine is typically in the? 2s.? 2.2-2.5.? Troponin was negative x1.? Influenza A/B RSV and COVID are negative.? The patient was given IV fluids? in the emergency room.? The patient is being admitted to observation status on the date of service of 12/20/2021. 12/24/2021 interval history: patient has elevated BUN and creatinine compared to baseline patient seems to be dehydrated causing hypotension and falling, upon arrival patient creatinine was 3.6 and is now trending down today it is today 2.6, patient ia being gently hydrated and will monitor patient kidney function, patient had a kidney ultrasound which is normal without any hydronephrosis, patient urine showed hematuria patient is seen by Urology and and mining speculator and further recommendation to follow, patient was seen by urologist suspect patient may have chronic UTI and recommended suppressive therapy with kefelex, also upon arrival patient chest x-ray was suspicious for pneumonia started patient on ceftriaxone and azithromycin, will repeat chest x-ray on Saturday, patient is present answered all her questions, will have PT OT evaluate the patient patient will benefit with rehab. (2) Weakness: Code(s): R53.1 - Weakness Status: Acute Assessment and Plan: - could be related to the acute kidney injury. -PT and OT have been consulted and their input was greatly be appreciated. (3) CAD (coronary artery disease): Code(s): I25.10 - Atherosclerotic heart disease of [place] coronary artery without angina pectoris Status: Acute Assessment and Plan: -Continue with aspirin -continue with [place] 3 -continue simvastatin -continue with Coreg (4) Type 2 diabetes mellitus: Qualifiers: Diabetes mellitus predatory animal exterminator insulin use: without mcc use Diabetes mellitus complication status: with neurologic complications Diabetes mellitus complication detail: with polyneuropathy Qualified Code(s): E11.42 - Type 2 diabetes mellitus with diabetic polyneuropathy Code(s): E11.9 - Type 2 diabetes mellitus without complications Status: Acute Assessment and Plan: -Accu-Cheks AC and HS with sliding scale insulin and hypoglycemic protocol -check A1c. (5) Anemia: Qualifiers: Anemia type: unspecified type Qualified Code(s): D64.9 - Anemia, unspecified Code(s): D64.9 - Anemia, unspecified Status: Acute Assessment and Plan: -Could be related to his renal failure. - patient appears to be at his baseline. (6) Obstructive sleep apnea on CPAP: Code(s): G47.33 - Obstructi
[2021-12-24 11:35] LABS: Glucose Point of Care 148 mg/dl (65-105)
--- NOTE | 2021-12-24 13:08 | P.PNNP_ITS ---
Progress Note: A&P Assessment and Plan (1) Acute kidney injury: Code(s): N17.9 - Acute kidney failure, unspecified Status: Acute Assessment and Plan: * suspicion falls on use of Bactrim as possible etiology * however, the UTI (infection) itself could have played a role as well * renal ultrasound noted * urine electrolytes not pre-renal * urine eosinophils peding * follow repeat labs and UOP (2) CKD (chronic kidney disease): Code(s): N18.9 - Chronic kidney disease, unspecified Status: Chronic Assessment and Plan: * creatinine appears to have fluctuated to extremes in the last 2 years * has been as low as 1.4mg/dl but was 2.2mg/dl prior to this admission * suspect CKD due to DM, HTN, and age-related change as well as possibly due to frequent UTIs (3) Weakness: Code(s): R53.1 - Weakness Status: Acute Assessment and Plan: * due to previous UTI versus JALYN/ARF versus other(?) * PT/OT as tolerated (4) Anemia: Qualifiers: Anemia type: unspecified type Qualified Code(s): D64.9 - Anemia, unspecified Code(s): D64.9 - Anemia, unspecified Status: Acute Assessment and Plan: * likely due to JALYN, CKD, and acute illness * follow trend of H/H (5) Essential (primary) hypertension: Code(s): I10 - Essential (primary) hypertension Status: Chronic Assessment and Plan: * reasonable control * onhome BP medications * follow trend of hemodynamics (6) Type 2 diabetes mellitus: Qualifiers: Diabetes mellitus complication detail: with polyneuropathy Diabetes mellitus complication status: with neurologic complications Diabetes mellitus intermediate insulin use: without family manager use Qualified Code(s): E11.42 - Type 2 diabetes mellitus with diabetic polyneuropathy Code(s): E11.9 - Type 2 diabetes mellitus without complications Status: Acute Assessment and Plan: * follow accuchecks * glycemic control Will continue to follow. Subjective Date/time seen: 12/24/21 13:08 Renal function continues to slowly improve with ongoing supportive therapy; no apparent distriess voiced; no issues/events overnight or earlier this morning; no other acute complaints to report. Exam Narrative: General: WD/WN male in NAD Heart: normal S1 and S2; no rub Lungs: clear to auscultation Abdomen: soft, nontender, nondistended, positive bowel sounds Extremities: no cyanosis or clubbing; no edema Skin: no nodules Objective Data Vital Signs Vital Signs: Vital Signs Temp Pulse Resp BP Pulse Ox O2 Del Method FiO2 12/24/21 08:10 Room Air 12/24/21 08:15 80 12/24/21 05:48 36.1 C L 89 14 178/74 H 95 12/23/21 22:50 79 96 CPAP 12/23/21 20:00 Room Air 21 12/23/21 21:22 35.9 C L 73 14 195/84 H 100 12/23/21 20:29 62 Intake/Output Intake/Output: Intake & Output 12/21/21 12/22/21 12/23/21 12/24/21 23:59 23:59 23:59 23:59 Intake Total 3610 2130 1920 2530 Output Total 150 1250 1500 1090 Balance 3460 615 078 1970 Meds/Results Medications: Active Medications Generic Name Dose Route Start Last Admin T
--- NOTE | 2021-12-24 13:08 | PM.PNNEP ---
Progress Note: A&P Assessment and Plan (1) Acute kidney injury: Code(s): N17.9 - Acute kidney failure, unspecified Status: Acute Assessment and Plan: suspicion falls on use of Bactrim as possible etiology however, the UTI (infection) itself could have played a role as well renal ultrasound noted urine electrolytes not pre-renal urine eosinophils peding follow repeat labs and UOP (2) CKD (chronic kidney disease): Code(s): N18.9 - Chronic kidney disease, unspecified Status: Chronic Assessment and Plan: creatinine appears to have fluctuated to extremes in the last 2 years has been as low as 1.4mg/dl but was 2.2mg/dl prior to this admission suspect CKD due to DM, HTN, and age-related change as well as possibly due to frequent UTIs (3) Weakness: Code(s): R53.1 - Weakness Status: Acute Assessment and Plan: due to previous UTI versus JALYN/ARF versus other(?) PT/OT as tolerated (4) Anemia: Qualifiers: Anemia type: unspecified type Qualified Code(s): D64.9 - Anemia, unspecified Code(s): D64.9 - Anemia, unspecified Status: Acute Assessment and Plan: likely due to JALYN, CKD, and acute illness follow trend of H/H (5) Essential (primary) hypertension: Code(s): I10 - Essential (primary) hypertension Status: Chronic Assessment and Plan: reasonable control onhome BP medications follow trend of hemodynamics (6) Type 2 diabetes mellitus: Qualifiers: Diabetes mellitus complication detail: with polyneuropathy Diabetes mellitus complication status: with neurologic complications Diabetes mellitus penitentiary insulin use: without penitentiary use Qualified Code(s): E11.42 - Type 2 diabetes mellitus with diabetic polyneuropathy Code(s): E11.9 - Type 2 diabetes mellitus without complications Status: Acute Assessment and Plan: follow accuchecks glycemic control Will continue to follow. Subjective Date/time seen: 12/24/21 13:08 Renal function continues to slowly improve with ongoing supportive therapy; no apparent distriess voiced; no issues/events overnight or earlier this morning; no other acute complaints to report. Exam Narrative: General: WD/WN male in NAD Heart: normal S1 and S2; no rub Lungs: clear to auscultation Abdomen: soft, nontender, nondistended, positive bowel sounds Extremities: no cyanosis or clubbing; no edema Skin: no nodules Objective Data Vital Signs Vital Signs: Vital Signs Temp Pulse Resp BP Pulse Ox O2 Del Method FiO2 12/24/21 08:10 Room Air 12/24/21 08:15 80 12/24/21 05:48 36.1 C L 89 14 178/74 H 95 12/23/21 22:50 79 96 CPAP 12/23/21 20:00 Room Air 21 12/23/21 21:22 35.9 C L 73 14 195/84 H 100 12/23/21 20:29 62 Intake/Output Intake/Output: Intake & Output 12/21/21 12/22/21 12/23/21 12/24/21 23:59 23:59 23:59 23:59 Intake Total 3610 2130 1920 2530 Output Total 150 1250 1500 1090 Balance 3460 091 792 4738 Meds/Results Medications: Active Medications Generic Name Dose Route Start Last Admin Trade Name Freq PRN Reason Stop Dose Admin Acetaminophen 500 mg 12/20/21 23:40 12/22/21 09:30 Acetaminophen 500 Mg Tablet PO 500 mg Q6H PRN Administration Pain Rated 1-3 Allopurinol 300 mg 12/21/21 09:00 12/24/21 08:15 Allopurinol 300 Mg Tablet PO 300 mg DAILY ALLIE Administration Aspirin 81 mg 12/21/21 09:00 12/24/21 08:15 Aspirin 81 Mg Enteric Tablet PO 81 mg DAILY ALLIE Administration Carvedilol 6.25 mg 12/20/21 23:45 12/24/21 08:15 Carvedilol 6.25 Mg Tablet PO 6.25 mg Q12HR ALLIE Administration Dextrose 12.5 gm 12/20/21 23:27 Dextrose 50% 25 Gm/50 Ml Syringe IV PUSH PRN PRN Hypoglycemia Protocol Fish Oil 1 gm 12/21/21 09:00 12/24/21 16:15 [place] 3 Polyunsat Fatty Acids 1 Gm Cap
[2021-12-24 14:00] VITALS: BP 152/66; PULSE 73; RESP 14; TEMP 35.9; O2SAT 98
[2021-12-24 16:48] LABS: Glucose Point of Care 150 mg/dl (65-105)
[2021-12-24 20:55] VITALS: PULSE 74
[2021-12-24] MEDS: ACETAMINOPHEN 500 MG TABLET PO (21:02)
[2021-12-24 22:00] VITALS: BP 182/57; PULSE 82; RESP 17; TEMP 35.7; O2SAT 96
[2021-12-24 23:04] LABS: Myoglobin, Urine 65 mcg/L (<28)
[2021-12-25] VITALS (8 sets, daily range): BP systolic 170–211; BP diastolic 66–84; PULSE 70–86; RESP 18; TEMP 36.1–37; O2SAT 90–98
[2021-12-25 01:18] LABS: Glucose Point of Care 130 mg/dl (65-105)
[2021-12-25 07:24] LABS: Hematocrit 32.6 % (42.0-52.0); Hemoglobin 10.6 g/dL (14.0-18.0); Mean Corpuscular HGB Conc 32.5 g/dl (32-36); Mean Corpuscular Hemoglobin 32.3 pg (26-34); Mean Corpuscular Volume 99.4 fl (80-100); Mean Platelet Volume 10.8 fl (7.4-10.4); Platelet Count Result 185 k/mm3 (150-375); Red Blood Count 3.28 M/mm3 (4.6-6.20); Red Cell Distribution Width 13.2 % (11.5-14.5); White Blood Count 7.5 K/mm3 (4.5-10.0)
[2021-12-25 07:38] LABS: Anion Gap 10 mmol/L (8-16); Blood Urea Nitrogen 23 mg/dL (9-20); Calcium 8.3 mg/dL (8.4-10.2); Carbon Dioxide 22 mmol/L (22-30); Chloride 106 mmol/L (98-107); Estimated CRCL calculation 27 ml/min; Estimated Glomerular Filt Rate 26; Glucose 128 mg/dL (65-110); Magnesium 1.8 mg/dL (1.6-2.3); Phosphorus 4.8 mg/dL (2.5-4.5); Potassium 4.3 mmol/L (3.4-5.0); Sodium 138 mmol/L (137-145)
[2021-12-25] MEDS: traMADol HCL (*CRX) 50 MG TABLET PO ×2 (08:37→20:26)
[2021-12-25] MEDS: SODIUM CHLORIDE 0.9% IV 1,000 ML 75 ML IV CONT (08:37)
[2021-12-25] MEDS: allopurinoL 300 MG TABLET PO (08:38)
[2021-12-25] MEDS: MAGNESIUM OXIDE 400 MG TABLET PO (08:38)
[2021-12-25] MEDS: CHOLECALCIFEROL 1,000 UNITS TABLET 2000 UNITS PO (08:38)
[2021-12-25] MEDS: OMEGA 3 POLYUNSAT FATTY ACIDS 1 GM CAP PO ×2 (08:38→16:37)
[2021-12-25] MEDS: cefTRIAXone 2 GM in SODIUM CHLORIDE 0.9% IV 100 ML IVPB (08:38)
[2021-12-25] MEDS: SIMVASTATIN 20 MG TABLET 40 MG PO (08:38)
[2021-12-25] MEDS: carvediloL 6.25 MG TABLET PO ×3 (08:38→21:56)
[2021-12-25] MEDS: ASPIRIN 81 MG ENTERIC TABLET PO (08:39)
[2021-12-25] MEDS: MEMANTINE 10 MG TABLET PO (08:39)
[2021-12-25] MEDS: PANTOPRAZOLE SODIUM IV 40 MG VIAL IV PUSH ×2 (08:39→20:22)
[2021-12-25] MEDS: PREGABALIN (*CRX) 50 MG CAPSULE PO ×2 (08:39→16:37)
[2021-12-25 08:49] LABS: Glucose Point of Care 241 mg/dl (65-105)
[2021-12-25] MEDS: INSULIN ASPART (*BKC) 100 UNITS/ML SUB-Q (09:02)
[2021-12-25 11:57] LABS: Glucose Point of Care 133 mg/dl (65-105)
--- NOTE | 2021-12-25 13:20 | PM.PNNEP ---
Progress Note: A&P Assessment and Plan (1) Acute kidney injury: Code(s): N17.9 - Acute kidney failure, unspecified Status: Acute Assessment and Plan: resolving suspicion falls on use of Bactrim as possible etiology however, the UTI (infection) itself could have played a role as well renal ultrasound noted urine electrolytes not pre-renal follow repeat labs and UOP (2) CKD (chronic kidney disease): Code(s): N18.9 - Chronic kidney disease, unspecified Status: Chronic Assessment and Plan: creatinine appears to have fluctuated to extremes in the last 2 years has been as low as 1.4mg/dl but was 2.2mg/dl prior to this admission suspect CKD due to DM, HTN, and age-related change as well as possibly due to frequent UTIs (3) Weakness: Code(s): R53.1 - Weakness Status: Acute Assessment and Plan: due to previous UTI versus JALYN/ARF versus other(?) PT/OT as tolerated (4) Anemia: Qualifiers: Anemia type: unspecified type Qualified Code(s): D64.9 - Anemia, unspecified Code(s): D64.9 - Anemia, unspecified Status: Acute Assessment and Plan: likely due to JALYN, CKD, and acute illness follow trend of H/H (5) Essential (primary) hypertension: Code(s): I10 - Essential (primary) hypertension Status: Chronic Assessment and Plan: reasonable control onhome BP medications follow trend of hemodynamics (6) Type 2 diabetes mellitus: Qualifiers: Diabetes mellitus correction insulin use: without manager intermediate use Diabetes mellitus complication status: with neurologic complications Diabetes mellitus complication detail: with polyneuropathy Qualified Code(s): E11.42 - Type 2 diabetes mellitus with diabetic polyneuropathy Code(s): E11.9 - Type 2 diabetes mellitus without complications Status: Acute Assessment and Plan: follow accuchecks glycemic control Not opposed to discharge from renal perspective if otherwise medically stable Will continue to follow from a distance if remains hospitalized. Subjective Date/time seen: 12/25/21 13:20 Renal function continue to improve as evidence by trend of AM labs; no other acute issues/complaints voiced; possible discharge today if everything can be arranged; no events noted overnight or earlier this morning. Exam Narrative: General: WD/WN male in NAD Heart: normal S1 and S2; no rub Lungs: clear to auscultation Abdomen: soft, nontender, nondistended, positive bowel sounds Extremities: no cyanosis or clubbing; no edema Skin: warm and dry Objective Data Vital Signs Vital Signs: Vital Signs Temp Pulse Resp BP Pulse Ox O2 Del Method 12/25/21 06:00 36.1 C L 70 18 170/66 H 97 12/25/21 00:01 72 90 Autopap 12/24/21 22:00 35.7 C L 82 17 182/57 H 96 12/24/21 20:25 Room Air 12/24/21 20:55 74 12/24/21 14:00 35.9 C L 73 14 152/66 H 98 Intake/Output Intake/Output: Intake & Output 12/22/21 12/23/21 12/24/21 12/25/21 23:59 23:59 23:59 23:59 Intake Total 2130 1920 2530 1350 Output Total 1250 1500 1090 475 Balance 239 168 9724 875 Meds/Results Medications: Active Medications Generic Name Dose Route Start Last Admin Trade Name Freq PRN Reason Stop Dose Admin Acetaminophen 500 mg 12/20/21 23:40 12/24/21 21:02 Acetaminophen 500 Mg Tablet PO 500 mg Q6H PRN Administration Pain Rated 1-3 Allopurinol 300 mg 12/21/21 09:00 12/25/21 08:38 Allopurinol 300 Mg Tablet PO 300 mg DAILY ALLIE Administration Aspirin 81 mg 12/21/21 09:00 12/25/21 08:39 Aspirin 81 Mg Enteric Tablet PO 81 mg DAILY ALLIE Administration Carvedilol 6.25 mg 12/20/21 23:45 12/25/21 08:38 Carvedilol 6.25 Mg Tablet PO 6.25 mg Q12HR ALLIE Administration Dextrose 12.5 gm 12/20/21 23:27 Dextrose 50% 25 Gm/50 Ml Syringe IV PUSH PRN PRN Hypoglycemi
--- NOTE | 2021-12-25 13:20 | P.PNNP_ITS ---
Progress Note: A&P Assessment and Plan (1) Acute kidney injury: Code(s): N17.9 - Acute kidney failure, unspecified Status: Acute Assessment and Plan: * resolving * suspicion falls on use of Bactrim as possible etiology * however, the UTI (infection) itself could have played a role as well * renal ultrasound noted * urine electrolytes not pre-renal * follow repeat labs and UOP (2) CKD (chronic kidney disease): Code(s): N18.9 - Chronic kidney disease, unspecified Status: Chronic Assessment and Plan: * creatinine appears to have fluctuated to extremes in the last 2 years * has been as low as 1.4mg/dl but was 2.2mg/dl prior to this admission * suspect CKD due to DM, HTN, and age-related change as well as possibly due to frequent UTIs (3) Weakness: Code(s): R53.1 - Weakness Status: Acute Assessment and Plan: * due to previous UTI versus JALYN/ARF versus other(?) * PT/OT as tolerated (4) Anemia: Qualifiers: Anemia type: unspecified type Qualified Code(s): D64.9 - Anemia, unspecified Code(s): D64.9 - Anemia, unspecified Status: Acute Assessment and Plan: * likely due to JALYN, CKD, and acute illness * follow trend of H/H (5) Essential (primary) hypertension: Code(s): I10 - Essential (primary) hypertension Status: Chronic Assessment and Plan: * reasonable control * onhome BP medications * follow trend of hemodynamics (6) Type 2 diabetes mellitus: Qualifiers: Diabetes mellitus ferry terminal supervisor insulin use: without care home use Diabetes mellitus complication status: with neurologic complications Diabetes mellitus complication detail: with polyneuropathy Qualified Code(s): E11.42 - Type 2 diabetes mellitus with diabetic polyneuropathy Code(s): E11.9 - Type 2 diabetes mellitus without complications Status: Acute Assessment and Plan: * follow accuchecks * glycemic control Not opposed to discharge from renal perspective if otherwise medically stable Will continue to follow from a distance if remains hospitalized. Subjective Date/time seen: 12/25/21 13:20 Renal function continue to improve as evidence by trend of AM labs; no other acute issues/complaints voiced; possible discharge today if everything can be arranged; no events noted overnight or earlier this morning. Exam Narrative: General: WD/WN male in NAD Heart: normal S1 and S2; no rub Lungs: clear to auscultation Abdomen: soft, nontender, nondistended, positive bowel sounds Extremities: no cyanosis or clubbing; no edema Skin: warm and dry Objective Data Vital Signs Vital Signs: Vital Signs Temp Pulse Resp BP Pulse Ox O2 Del Method 12/25/21 06:00 36.1 C L 70 18 170/66 H 97 12/25/21 00:01 72 90 Autopap 12/24/21 22:00 35.7 C L 82 17 182/57 H 96 12/24/21 20:25 Room Air 12/24/21 20:55 74 12/24/21 14:00 35.9 C L 73 14 152/66 H 98 Intake/Output Intake/Output: Intake & Output 12/22/21 12/23/21 12/24/21 12/25/21 23:59 23:59 23:59 23:59 Intake Total 2130 1920 2530 1350 Output Total 1250 1500 1090 475 Balance 251 530 2385 875 Meds/Results Medications:
--- NOTE | 2021-12-25 13:29 | PM.DS ---
DS: Admitting Diagnosis Discharge Date 12/25/2021 Admitting Diagnosis falling DS: Discharge Diagnosis Discharge Diagnosis (1) Acute kidney injury: Code(s): N17.9 - Acute kidney failure, unspecified Status: Acute Assessment and Plan: -the patient had been on Bactrim for UTI which may have caused his acute kidney injury. The patient has 2 more days left but his urine looks like there is just some hematuria in it so we will hold off on any more antibiotics for the UTI. - continue with IV fluids but gently hydrate. -renal ultrasound has been ordered. -hold nephrotoxic medications. - consultation for Nephrology would greatly be appreciated. 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 HPI-Narrative: ?this is a 81-year-old male patient who has a history of chronic kidney disease, CVA, gout and vascular disease as well as diabetes type 2.? The patient came to the emergency room with generalized weakness and multiple falls.? The patient was seen by Urology and was diagnosed with UTI he was started on Bactrim.? The patient had fallen multiple times landing on his knees.? The patient is complaining of generalized weakness since being diagnosed with UTI.? Denies any syncopal episodes.? Denies any head injuries.? The patient is very hard of hearing and his is answering questions for him.? His H&H is 11.7 and 35.7.? His potassium was found to be 5.5.? Creatinine 3.6 with BUN 33.? The patient's creatinine is typically in the? 2s.? 2.2-2.5.? Troponin was negative x1.? Influenza A/B RSV and COVID are negative.? The patient was given IV fluids? in the emergency room.? The patient is being admitted to observation status on the date of service of 12/20/2021. 12/24/2021 interval history: patient has elevated BUN and creatinine compared to baseline patient seems to be dehydrated causing hypotension and falling, upon arrival patient creatinine was 3.6 and is now trending down today it is today 2.6, patient ia being gently hydrated and will monitor patient kidney function, patient had a kidney ultrasound which is normal without any hydronephrosis, patient urine showed hematuria patient is seen by Urology and and math interventionist and further recommendation to follow, patient was seen by urologist suspect patient may have chronic UTI and recommended suppressive therapy with kefelex, also upon arrival patient chest x-ray was suspicious for pneumonia started patient on ceftriaxone and azithromycin, will repeat chest x-ray on Saturday, patient is present answered all her questions, will have PT OT evaluate the patient patient will benefit with rehab. (2) Weakness: Code(s): R53.1 - Weakness Status: Acute Assessment and Plan: - could be related to the acute kidney injury. -PT and OT have been consulted and their input was greatly be appreciated. (3) CAD (coronary artery disease): Code(s): I25.10 - Atherosclerotic heart disease of [place] coronary artery without angina pectoris Status: Acute Assessment and Plan: -Continue with aspirin -continue with [place] 3 -continue simvastatin -continue with Coreg (4) Type 2 diabetes mellitus: Qualifiers: Diabetes mellitus termite renewal inspector insulin use: without termite renewal inspector use Diabetes mellitus complication status: with neurologic complications Diabetes mellitus complication detail: with polyneuropathy Qualified Code(s): E11.42 - Type 2 diabetes mellitus with diabetic polyneuropathy Code(s): E11.9 - Type 2 diabetes mellitus without complications Status: Acute Assessment and Plan: -Accu-Cheks AC and HS with sliding scale insulin and hypoglycemic protocol -check A1c. (5) Anemia: Qualifiers: Anemia type: unspecified type Qualified Code(s): D64.9 - Anemia, unspecified Code(s): D64.9 - Anemia, unspecified Status: Acute Assessment and Plan: -Could be related to his renal failure. - patient appears to be
[2021-12-25 16:31] LABS: EDCOVIDSCREEN Negative (Negative)
[2021-12-25 17:27] LABS: Glucose Point of Care 128 mg/dl (65-105)
[2021-12-25 21:54] LABS: Glucose Point of Care 132 mg/dl (65-105)
[2021-12-25] MEDS: cloNIDine HCL 0.1 MG TABLET PO (21:56)
[2021-12-26 06:00] VITALS: BP 170/80; PULSE 70; RESP 18; TEMP 36.2; O2SAT 97
[2021-12-26 06:37] LABS: Hematocrit 34.6 % (42.0-52.0); Hemoglobin 11.4 g/dL (14.0-18.0); Mean Corpuscular HGB Conc 32.9 g/dl (32-36); Mean Corpuscular Hemoglobin 32.2 pg (26-34); Mean Corpuscular Volume 97.7 fl (80-100); Mean Platelet Volume 10.8 fl (7.4-10.4); Platelet Count Result 202 k/mm3 (150-375); Red Blood Count 3.54 M/mm3 (4.6-6.20); Red Cell Distribution Width 13.2 % (11.5-14.5); White Blood Count 8.6 K/mm3 (4.5-10.0)
[2021-12-26 06:50] LABS: Albumin Level 3.2 g/dL (3.5-5.1); Anion Gap 11 mmol/L (8-16); Blood Urea Nitrogen 21 mg/dL (9-20); Calcium 8.5 mg/dL (8.4-10.2); Carbon Dioxide 24 mmol/L (22-30); Chloride 104 mmol/L (98-107); Estimated CRCL calculation 31 ml/min; Estimated Glomerular Filt Rate 30; Glucose 146 mg/dL (65-110); Magnesium 1.6 mg/dL (1.6-2.3); Phosphorus 4.5 mg/dL (2.5-4.5); Potassium 4.1 mmol/L (3.4-5.0); Sodium 139 mmol/L (137-145)
[2021-12-26 07:43] LABS: Glucose Point of Care 144 mg/dl (65-105)
[2021-12-26] MEDS: MEMANTINE 10 MG TABLET PO (08:21)
[2021-12-26] MEDS: SIMVASTATIN 20 MG TABLET 40 MG PO (08:21)
[2021-12-26] MEDS: allopurinoL 300 MG TABLET PO (08:21)
[2021-12-26] MEDS: CHOLECALCIFEROL 1,000 UNITS TABLET 2000 UNITS PO (08:21)
[2021-12-26] MEDS: PREGABALIN (*CRX) 50 MG CAPSULE PO (08:21)
[2021-12-26] MEDS: MAGNESIUM OXIDE 400 MG TABLET PO (08:22)
[2021-12-26] MEDS: OMEGA 3 POLYUNSAT FATTY ACIDS 1 GM CAP PO (08:22)
[2021-12-26 08:27] VITALS: PULSE 70
[2021-12-26] MEDS: carvediloL 12.5 MG TABLET PO (08:27)
[2021-12-26 08:53] VITALS: BP 188/70; PULSE 61; RESP 20; TEMP 36.2; O2SAT 98
--- NOTE | 2021-12-26 11:04 | PC.NURSE ---
Spoke with [facility] nurse. They received full report yesterday. Ok to send him. Ambulance to take. Pt and aware.
[2021-12-26 11:26] LABS: Glucose Point of Care 143 mg/dl (65-105)
[2021-12-26] MEDS: traMADol HCL (*CRX) 50 MG TABLET PO (12:07)
[2021-12-26] MEDS: ASPIRIN 81 MG ENTERIC TABLET PO (12:07)
[2021-12-26 12:14] VITALS: BP 180/68
[2021-12-26 12:27] VITALS: BP 154/67
[2021-12-27 16:01] LABS: Chloride Rand Ur 122 mmol/L (32-290); Chloride/Creatinine Rand Ur 139 (23-275); Creatinine Random Urine 88 mg/dL (20-320)
== END 2021-12-26 13:35 | DRG 683 ==
LOC: ANHED 15:34 → ANH3MEDSUR 17:25
PROVIDERS: Internal Medicine Nephrology; Nurse Practitioner; Admitting Provider Student in an Organized Health Care Education/Training Program; Emergency Provider Nurse Practitioner Family; PCP Family Medicine; Visit Provider Family Medicine
DX: N17.9 Acute kidney failure, unspecified (principal); I13.0 Hypertensive heart and chronic kidney disease with heart failure and stage 1 through stage 4 chronic kidney disease, or unspecified chronic kidney disease; I50.32 Chronic diastolic (congestive) heart failure; R53.1 Weakness; Z91.81 History of falling; I25.10 Atherosclerotic heart disease of native coronary artery without angina pectoris; E11.42 Type 2 diabetes mellitus with diabetic polyneuropathy; K21.9 Gastro-esophageal reflux disease without esophagitis; Z86.73 Personal history of transient ischemic attack (TIA), and cerebral infarction without residual deficits; F03.90 Unspecified dementia, unspecified severity, without behavioral disturbance, psychotic disturbance, mood disturbance, and anxiety; M10.9 Gout, unspecified; N18.30 Chronic kidney disease, stage 3 unspecified; E78.2 Mixed hyperlipidemia; G47.33 Obstructive sleep apnea (adult) (pediatric); D63.1 Anemia in chronic kidney disease; E11.22 Type 2 diabetes mellitus with diabetic chronic kidney disease; J44.9 Chronic obstructive pulmonary disease, unspecified; Z23 Encounter for immunization; Z20.822 Contact with and (suspected) exposure to COVID-19; N40.1 Benign prostatic hyperplasia with lower urinary tract symptoms; N30.21 Other chronic cystitis with hematuria; E86.0 Dehydration; I95.9 Hypotension, unspecified; T36.8X5A Adverse effect of other systemic antibiotics, initial encounter; Z95.5 Presence of coronary angioplasty implant and graft; Z96.653 Presence of artificial knee joint, bilateral; Z83.3 Family history of diabetes mellitus; Z87.891 Personal history of nicotine dependence; Z79.82 Long term (current) use of aspirin; Z79.899 Other long term (current) drug therapy; Z68.37 Body mass index [BMI] 37.0-37.9, adult
CPT/HCPCS: 36415; 71045; 76775; 80048; 80053; 80069; 81001; 81050; 82436; 82570; 82948; 83036; 83605; 83735; 83874; 84100; 84156; 84300; 84443; 84484; 85025; 85027; 85999; 86140; 87426; 87637; 90471; 90694; 93005; 96361; 96374; 97110; 97116; 97161; 97166; 97530; 97535; 99285; A9270; C9113; C9803; G0008; G0378; J0456; J0696; J1815; J7030

== ENCOUNTER 2022-01-01 15:24 | Outpatient (CLI) | payer MEDICARE, SELFPAY ==
--- NOTE | ~2022-01-01 | CT_ITS ---
EXAMINATION: CT abdomen pelvis wo con DATE: 01/01/2022 16:33 INDICATION: Gross hematuria TECHNIQUE: Computed tomography (CT) of the abdomen and pelvis was performed without intravenous contr ast. The dose-length product was 1543.74 mGy-cm. Automated exposure control and iterative reconstruct ion technique were employed. COMPARISON: CT dated 04/20/2019. FINDINGS: There is dependent atelectasis. Heart size normal. There is atherosclerosis. There is a lap aroscopic adjustable gastric band. There is an exophytic 3.6 cm left renal cyst. There is a densely c alcified left renal cyst, unchanged from prior examination allowing for differences of technique. There is a nodular appearance to the liver surface, consistent with cirrhosis. Nonobstructive bowel g as pattern. Small fat-containing umbilical hernia. There is Payne catheter present in the bladder. No significant lymphadenopathy. There is high density material in the gallbladder, suspicious for stone s versus high density sludge. There are advanced degenerative changes of the hips. Severe lower thora cic and lumbar spondylosis with ankylosis. Small pericardial effusion. No significant pleural effusio n. IMPRESSION: 1. Left renal cysts, one of which is densely calcified along the periphery without significant change from prior examination. 2: Nodular liver surface, consistent with cirrhosis. 3: High density material dependently in the gallbladder which may represent stones or sludge. Reviewed, dictated and finalized at location B. ESMITH IMPRESSION: 1. Left renal cysts, one of which is densely calcified along the periphery with out significant change from prior examination. 2: Nodular liver surface, consistent with cirrhosis. 3: High density material dependently in the gallbladder which may represent st ones or sludge.
[2022-01-01 16:02] LABS: Estimated Glomerular Filt Rate 23
== END 2022-01-01 15:25 | disposition home or self-care (01) ==
PROVIDERS: PCP Family Medicine; Visit Provider Family Medicine
DX: R31.0 Gross hematuria (principal); N28.1 Cyst of kidney, acquired
CPT/HCPCS: 74176

== ENCOUNTER 2022-06-04 14:36 | Outpatient (CLI) | payer MEDICARE, SELFPAY ==
--- NOTE | ~2022-06-04 | CT_ITS ---
EXAMINATION: CT abdomen wo con DATE: 06/04/2022 15:19 INDICATION: Abdominal mass. TECHNIQUE: Computed tomography (CT) of the abdomen was performed without intravenous contrast. Automa bakari exposure control and iterative reconstruction technique were employed. The dose-length product wa s 1470.03 mGy-cm. COMPARISON: CT abdomen and pelvis 01/01/2022, 09/11/17 FINDINGS: The visualized portions of the lung bases demonstrate small pleural effusions and mild atel ectasis. Calcified pulmonary nodules and calcified hilar and mediastinal lymph nodes are consistent w ith old granulomatous disease. The heart size is normal. There are coronary artery calcifications. Th ere are calcifications of aortic valve. No pericardial effusion. There is a lap band in expected posi tion. Calcifications in the liver and spleen are consistent with old granulomatous disease. The gallb ladder, pancreas, adrenal glands, and right kidney are normal. There is a 2.5 cm mass in left kidney with thick rim calcification that was nonenhancing on the CT from 09/11/2017, likely benign. There is c alcified atherosclerosis of the aorta and many of the other arteries. The bladder is decompressed by a Payne catheter. The prostate is moderately enlarged. There is diverticulosis of the colon without e vidence of diverticulitis. There are no dilated loops of bowel. The appendix is not visualized. There are no pathologically enlarged lymph nodes. There is no free intraperitoneal fluid. There are bridgi ng endplate osteophytes at multiple levels in the spine, consistent with diffuse idiopathic skeletal hyperostosis (DISH). There is severe lumbar spondylosis. IMPRESSION: 1. Small pleural effusions. Reviewed, dictated and finalized at location A. IMPRESSION: 1. Small pleural effusions.
== END 2022-06-04 14:37 | disposition home or self-care (01) ==
PROVIDERS: PCP Family Medicine; Visit Provider Family Medicine
DX: R19.00 Intra-abdominal and pelvic swelling, mass and lump, unspecified site (principal); J90 Pleural effusion, not elsewhere classified
CPT/HCPCS: 74150

== ENCOUNTER 2022-06-12 21:01 | Emergency (ER) | payer MEDICARE, SELFPAY ==
[2022-06-12 21:13] VITALS: BP 144/66; PULSE 94; RESP 20; TEMP 36.3; O2SAT 94
--- NOTE | 2022-06-12 22:21 | PC.NURSE ---
Bladder scan performed on patient. 111mL of urine found in patient bladder. patient complains of pain when pressing over bladder and burning.
--- NOTE | 2022-06-12 23:10 | PC.NURSE ---
pt resting per stretcher in no distress. c/o burning at catheter site. yellow urine noted draining via gravity into leg bag. states that she emptied approx 100ml at 1830 and is concerned because it is not draining enough.
[2022-06-12 23:16] VITALS: PULSE 88; RESP 16; O2SAT 97
[2022-06-13] MEDS: HYDROmorphone HCL INJ (*CRX) 1 MG/ML SYR 0.5 MG IV PUSH (00:05)
--- NOTE | 2022-06-13 00:15 | PC.NURSE ---
Dr. Godinez at bedside for ultrasound of bladder. states that there is urine in bladder and catheter needs to be advanced. victor cath deflated and advanced. immediate return of 250ml of yellow urine drained via gravity without difficulty. pt states that pressure and burning has subsided.
[2022-06-13 00:34] LABS: Appearance Urine Clear (Clear); Bacteria Urine 4+ /hpf; Bilirubin Urine Negative (Negative); Blood Urine 2+ (Negative); Color Urine Yellow (Yellow); Glucose Urine UA Negative (Negative); Ketones Urine Negative (Negative); Leukocyte Esterase Ur 1+ LEU/UL (Negative); Nitrate Urine Positive (Negative); Protein Urine 3+ mg/dL (Negative); RBC Urine 21-50 /hpf (0-2); Specific Grav Ur 1.016 (1.001-1.035); Squamous Epithelial Cell Urine None seen /hpf (Few); Urobilinogen Urine 0.2 mg/dL (<2.0); WBC Urine 21-50 /hpf; pH Urine 6.5 (5.0-9.0)
[2022-06-13 00:42] LABS: Add Urine Microscopic? YES
--- NOTE | 2022-06-13 01:15 | ED.GENADULT ---
HPI - General Adult General Chief complaint: Urogenital-Male Stated complaint: unable to urinate Time Seen by Provider: 06/12/22 23:17 History of Present Illness HPI narrative: This is an 81-year-old male with a leg bag due to BPH presenting to ED with lower abdominal pain. His back has stopped draining since 6:30 p.m.. He now has lower abdominal pain. Denies fever or chills nausea vomiting diarrhea. He denies any trauma or pulling on the bag. His urologist is Dr. Matthew. No other complaints. Related Data Home Medications Medication Instructions Recorded Confirmed cholecalciferol (vitamin D3) 50 50 mcg PO DAILY 10/24/19 06/12/22 mcg (2,000 unit) tablet omega-3 fatty acids 1,000 mg 1,000 mg PO BID 11/03/19 06/12/22 capsule (Fish Oil Concentrate) aspirin 81 mg tablet,delayed 81 mg PO DAILY 11/23/19 06/12/22 release (Adult Low Dose Aspirin) acetaminophen 500 mg tablet 500 mg PO Q6H PRN Pain (Scale 02/21/21 06/12/22 Score 1-3) magnesium oxide 400 mg PO DAILY 05/11/21 06/12/22 levalbuterol HCl 0.63 mg/3 mL 0.63 mg inhalation Q6H PRN 12/20/21 06/12/22 solution for nebulization Shortness Of Breath cephalexin 250 mg capsule 250 mg PO QHS 03/26/22 06/12/22 finasteride 5 mg tablet 5 mg PO DAILY 03/26/22 06/12/22 Allergies Allergy/AdvReac Type Severity Reaction Status Date / Time citalopram Allergy Mild Hives Verified 06/12/22 11:33 hydrochlorothiazide Allergy Mild Hives Verified 06/12/22 11:33 [facility] Past Medical History Medical History Abdominal mass Acute cystitis Adult BMI 37.0-37.9 kg/sq m Anxiety disorder, unspecified Benign prostatic hyperplasia (BPH) with straining on urination Benign prostatic hyperplasia with lower urinary tract symptoms Blister of toe BMI 36.0-36.9,adult BMI 38.0-38.9,adult BMI 40.0-44.9, adult BMI over 35 Bronchitis Cerebrovascular accident (CVA) Chest pain Chest pain CHF (congestive heart failure) Chronic bilateral low back pain with bilateral sciatica Chronic fatigue Chronic obstructive pulmonary disease CKD (chronic kidney disease), stage III Congestive heart failure last echo February of 2019 impaired diastolic relaxation grade 1 estimated ejection fraction of 50-55%. COPD (chronic obstructive pulmonary disease) Coronary artery disease (~2019) CVA (cerebral vascular accident) Dementia Diabetes with ulcer of toe Dyspnea Essential (primary) hypertension Excessive sputum Fatigue Gait instability Gout Gout Groin pain Hearing loss History of kidney stones Hordeolum of right eye Hyperlipidemia Hypertension Hypotension Mixed hyperlipidemia Morbid obesity Obstructive sleep apnea on CPAP GREG on CPAP Osteoarthritis of knees, bilateral Osteoporosis Peripheral arterial disease Peripheral vascular disease Pseudoaneurysm of artery of upper extremity Recurrent UTI Rib pain on left side Somnolence TMJ inflammation Type 2 diabetes mellitus Type 2 diabetes mellitus Urinary incontinence Vitamin D deficiency Weakness Wound, open, upper arm Surgical History Surgical History H/O cataract extraction H/O heart artery stent H/O hernia repair H/O inguinal hernia repair History of appendectomy History of bilateral knee replacement History of testicular surgery History of tonsillectomy History of tonsillectomy and adenoidectomy History of total knee replacement History of total left knee replacement History of total right knee replacement History of transurethral resection of prostate Hx of appendectomy Hx of laparoscopic gastric banding S/P TURP Status post cataract extraction of both eyes with insertion of intraocular lens Family History Family History Father Family history of diabetes mellitus in first degree relative Alzheimer's dementia Diabetes mellitus Grandparent Kanika veras
[2022-06-13 02:31] VITALS: BP 139/72; PULSE 81; RESP 18; O2SAT 97
== END 2022-06-13 02:33 | disposition home or self-care (01) ==
PROVIDERS: Emergency Provider Emergency Medicine; PCP Family Medicine
DX: T83.021A Displacement of indwelling urethral catheter, initial encounter (principal); N39.0 Urinary tract infection, site not specified; N40.1 Benign prostatic hyperplasia with lower urinary tract symptoms; R39.16 Straining to void; J44.9 Chronic obstructive pulmonary disease, unspecified; I25.10 Atherosclerotic heart disease of native coronary artery without angina pectoris; E11.22 Type 2 diabetes mellitus with diabetic chronic kidney disease; I13.0 Hypertensive heart and chronic kidney disease with heart failure and stage 1 through stage 4 chronic kidney disease, or unspecified chronic kidney disease; N18.30 Chronic kidney disease, stage 3 unspecified; I50.9 Heart failure, unspecified; F03.90 Unspecified dementia, unspecified severity, without behavioral disturbance, psychotic disturbance, mood disturbance, and anxiety; E11.51 Type 2 diabetes mellitus with diabetic peripheral angiopathy without gangrene; I73.9 Peripheral vascular disease, unspecified; E78.2 Mixed hyperlipidemia; E55.9 Vitamin D deficiency, unspecified; G47.33 Obstructive sleep apnea (adult) (pediatric); E66.01 Morbid (severe) obesity due to excess calories; Z68.37 Body mass index [BMI] 37.0-37.9, adult; M10.9 Gout, unspecified; M81.0 Age-related osteoporosis without current pathological fracture; Z87.440 Personal history of urinary (tract) infections; Z86.73 Personal history of transient ischemic attack (TIA), and cerebral infarction without residual deficits; Z87.442 Personal history of urinary calculi; Z87.891 Personal history of nicotine dependence; Z98.42 Cataract extraction status, left eye; Z98.41 Cataract extraction status, right eye; Z96.1 Presence of intraocular lens; Z95.5 Presence of coronary angioplasty implant and graft; Z96.653 Presence of artificial knee joint, bilateral; Z90.79 Acquired absence of other genital organ(s); Z79.82 Long term (current) use of aspirin; Z79.84 Long term (current) use of oral hypoglycemic drugs; Y84.6 Urinary catheterization as the cause of abnormal reaction of the patient, or of later complication, without mention of misadventure at the time of the procedure
CPT/HCPCS: 81001; 87077; 87086; 87186; 96374; 99284; J1170

== ENCOUNTER 2022-06-15 15:06 | Outpatient (NON) | payer MEDICARE, SELFPAY ==
[2022-06-15 15:58] LABS: Basophils Absolute Auto 0.1 K/mm3 (0.0-0.1); Basophils Percent Auto 0.7 % (0.2-1.2); Eosinophils Absolute Auto 0.4 K/mm3 (0-0.3); Eosinophils Percent Auto 3.5 % (0-4.4); Hematocrit 37.4 % (42.0-52.0); Hemoglobin 12.3 g/dL (14.0-18.0); Immature Granulocyte Absolute 0.02 K/mm3 (0.00-0.031); Immature Granulocyte Percent A 0.2 % (0-0.5); Lymphocytes Percent Auto 12.6 % (18.3-44.2); Mean Corpuscular HGB Conc 32.9 g/dl (32-36); Mean Corpuscular Hemoglobin 32.5 pg (26-34); Mean Corpuscular Volume 98.9 fl (80-100); Mean Platelet Volume 11.3 fl (7.4-10.4); Monocytes Absolute Auto 0.6 K/mm3 (0.1-0.6); Platelet Count Result 237 k/mm3 (150-375); Red Blood Count 3.78 M/mm3 (4.6-6.20); Red Cell Distribution Width 13.4 % (11.5-14.5); White Blood Count 10.3 K/mm3 (4.5-10.0)
[2022-06-15 16:09] LABS: Partial Thromboplastin Time 30.2 SECONDS (22.3-36.8); Prothrombin Time 13.9 Seconds (11.1-14.7)
[2022-06-15 16:15] LABS: Anion Gap 9 mmol/L (8-16); Blood Urea Nitrogen 35 mg/dL (9-20); Calcium 8.6 mg/dL (8.4-10.2); Carbon Dioxide 29 mmol/L (22-30); Chloride 102 mmol/L (98-107); Estimated Glomerular Filt Rate 25; Glucose 176 mg/dL (65-110); Potassium 3.9 mmol/L (3.4-5.0); Sodium 140 mmol/L (137-145)
== END 2022-06-15 15:07 | disposition home or self-care (01) ==
LOC: HOME HLTH 15:09
PROVIDERS: PCP Family Medicine; Visit Provider Nurse Practitioner Adult Health
DX: N40.1 Benign prostatic hyperplasia with lower urinary tract symptoms (principal)
CPT/HCPCS: 80048; 85025; 85610; 85730; 87086; 87088

== ENCOUNTER 2022-06-20 16:50 | Observation (INO) | payer MEDICARE, SELFPAY ==
[2022-06-06 14:26] VITALS: BMI 38.0
--- NOTE | 2022-06-06 14:54 | PC.NURSE ---
PRE-OP INSTRUCTIONS, PLEASE READ CAREFULLY Report to the Outpatient Waiting Room, entrance under the green pavilion located off [facility], at time _1030_ on date _06/19/22_. Planned Procedure Time: _1230_. PACK A SMALL OVERNIGHT BAG AND LEAVE IN THE CAR Time changes happen often and if your time is changed the preop area will call you the afternoon before. - You and your visitor will be asked to self-screen and do not enter if you have any COVID symptoms. - A mask is optional within the hospital at this time. -VISITING HOURS 8AM-8PM Patients may have clear liquids (water, carbonated beverages, clear teas, apple juice) until 3 hours prior to surgery (with a maximum of 20 ounces. - No food from midnight until time of surgery Take the following medications with a SIP of water the morning of surgery: _CARVEDILOL, CEPHALEXIN, PREGABALIN, & TYLENOL / INHALER IF NEEDED_ DO NOT STOP ANY OF YOUR OTHER PRESCRIPTION MEDICATIONS PRIOR TO SURGERY ?EXCEPT THE FOLLOWING Medications to discontinue - _ASPIRIN, NAPROXEN, FISH OIL PER DR. JONES'S INSTRUCTIONS Please no make-up, nail kinyarwanda, hairspray, perfume, deodorant, or body powder the day of surgery. No jewelry (including any body piercings) or valuables the day of surgery, leave them at home. Please take a shower or bath the night before, or the morning of, surgery with an antibacterial soap. Wear comfortable, loose fitting clothing. - Jewelry must be removed prior to entering the operating room. Rings and piercings that are not removed may be cut off. - The hospital will not accept responsibility for valuables. - Please leave all valuables, including medications, at home the day of surgery. If you are going home after surgery, a licensed hack driver must drive you home. - NO public transportation without another adult if you receive anesthesia. - We recommend that an adult stay with you for 24 hours following discharge. - We also recommend that you do not drive, make important decision, drink alcoholic beverages, or take any drugs that were not prescribed by your health care provider for at least 24 hours after your discharge time. Follow any additional instructions given to you from your surgeon. If you or anyone in your household have experienced Covid symptoms in the past week, please notify your surgeon or the nurse liaison at the phone number below for possible testing. Telephone instructions given to _PATIENT'S SPOUSE (PAT)__and asked if any additional questions and then verbalized understanding. Patient advised to call surgeon office or pre surgery nurse liaison [phone] if any additional questions.
[2022-06-19] VITALS (12 sets, daily range): BP systolic 132–188; BP diastolic 42–95; PULSE 66–81; RESP 14–18; TEMP 36.2–36.7; O2SAT 93–100
[2022-06-19 11:23] LABS: Glucose Point of Care 144 mg/dl (65-105)
--- NOTE | 2022-06-19 11:25 | WPDANESEPPF ---
Anes - Initial Pre Proc Eval Procedure: Operation Date: 06/19/22 12:30 Proposed Procedures p Trans Urethral Resection Prostate - Inocencio Matthew MD Date/Time: 06/19/22 11:25 Surgeon: Inocencio Matthew MD Pre Op Diagnosis: bth,urine retention Patient Data Age: 81 Gender: M Height: 1.73 m Weight: 107.7 kg Last Vital Signs Temp 36.2 C L 06/19/22 10:33 Pulse 70 06/19/22 10:33 BP 184/65 H 06/19/22 10:33 Pulse Ox 98 06/19/22 10:33 O2 Del Method Room Air 06/19/22 10:33 Allergies Allergy/AdvReac Type Severity Reaction Status Date / Time citalopram Allergy Mild Hives Verified 06/19/22 10:53 hydrochlorothiazide Allergy Mild Hives Verified 06/19/22 10:53 Home Medications Medication Instructions Recorded Confirmed Type cholecalciferol (vitamin D3) 50 50 mcg PO DAILY 10/24/19 06/19/22 History mcg (2,000 unit) tablet omega-3 fatty acids 1,000 mg 1,000 mg PO BID 11/03/19 06/19/22 History capsule (Fish Oil Concentrate) aspirin 81 mg tablet,delayed 81 mg PO DAILY 11/23/19 06/19/22 History release (Adult Low Dose Aspirin) acetaminophen 500 mg tablet 500 mg PO Q6H PRN Pain (Scale 02/21/21 06/19/22 History Score 1-3) blood sugar diagnostic (Blood #120 ea 04/25/21 06/12/22 Rx Glucose Test strips) blood sugar diagnostic (OneTouch #50 ea 04/25/21 06/12/22 Rx Ultra Test strips) blood sugar diagnostic (Accu-Chek #100 ea 04/27/21 06/12/22 Rx Nida Plus test strips) blood-glucose meter (Accu-Chek #1 ea 04/27/21 06/12/22 Rx Nida Plus Meter) lancets (Accu-Chek Fastclix Lancet #100 ea 04/27/21 06/12/22 Rx Drum) magnesium oxide 400 mg PO DAILY 05/11/21 06/19/22 History levalbuterol HCl 0.63 mg/3 mL 0.63 mg inhalation Q6H PRN 12/20/21 06/19/22 History solution for nebulization Shortness Of Breath glimepiride 1 mg tablet 1 mg PO QAM #90 tabs 12/29/21 06/19/22 Rx memantine 10 mg tablet 10 mg PO DAILY #90 tabs 12/29/21 06/19/22 Rx simvastatin 40 mg tablet 40 mg PO DAILY #90 tabs 12/29/21 06/19/22 Rx carvedilol 6.25 mg tablet See Rx Instructions .Route 02/21/22 06/19/22 Rx .COMPLEX #180 tabs cephalexin 250 mg capsule 250 mg PO QHS 03/26/22 06/19/22 History finasteride 5 mg tablet 5 mg PO DAILY 03/26/22 06/19/22 History exenatide microspheres 2 mg/0.85 2 mg (0.85 mL) subcut WEEKLY #3.4 05/03/22 06/19/22 Rx mL subcutaneous auto-injector mL (Kayy Bauman) pregabalin 50 mg capsule 50 mg PO BID #60 caps 05/03/22 06/19/22 Rx naproxen 250 mg tablet 250 mg PO DAILY PRN SEVERE 05/14/22 06/19/22 Rx arthritis pain #30 tabs allopurinol 300 mg tablet 300 mg PO DAILY #90 tabs 06/09/22 06/19/22 Rx cefdinir 300 mg capsule 300 mg PO Q12H #14 caps 06/13/22 06/19/22 Rx Laboratory Tests 06/19/22 11:11 POC Capillary Glucose 144 H mg/dl (65-105) Patient hx anesthesia problems: none Family hx anesthesia problems: none Results Review: All pre-operative results and documents have been reviewed as part of the pre-operative evaluation. [facility] Past Medical History Medical History Abdominal mass Acute cystitis Adult BMI 37.0-37.9 kg/sq m Anxiety disorder, unspecified Benign prostatic hyperplasia (BPH) with straining on urination Benign prostatic hyperplasia with lower urinary tract symptoms Blister of toe BMI 36.0-36.9,adult BMI 38.0-38.9,adult BMI 40.0-44.9, adult BMI over 35 Bronchitis Cerebrovascular accident (CVA) Chest pain Chest pain CHF (congestive heart failure) Chronic bilateral low back pain with bilateral sciatica Chronic fatigue Chronic obstructive pulmonary disease CKD (chronic kidney disease), stage III Congestive heart failure last echo February of 2019 impaired diastolic relaxation grade 1 estimated ejection fraction of 50-55%. COPD (chronic obstructive pulmonary disease) Coronary artery disease (~2018) CVA (cerebral vascular accident) Dementia Diabetes with ulcer of toe Dyspnea Es
--- NOTE | 2022-06-19 11:27 | SUR.PREOP ---
1100-BILATERAL KNEES NOTED TO BE ABRASED-STATES FELL RECENTLY.
--- NOTE | 2022-06-19 11:28 | WPDHPUPDATE1 ---
History and Physical Update Update Date/Time: 06/19/22 11:28 History and Physical has been reviewed, including an updated exam of the patient. There are NO changes in the patient's condition. Risks, benefits, and alternatives have been discussed and questions answered. Patient agrees to proceed with procedure. Proceed with transurethral resection of prostate
[2022-06-19] MEDS: ceFAZolin 2 GM/D5W 50 ML 2 GM/50 ML BAG IVPB (12:24)
[2022-06-19] MEDS: LIDOCAINE HCL 2% GEL UROJET 10 ML PKG MUCOUS MEM (12:49)
--- NOTE | 2022-06-19 12:53 | P.OP_ITS ---
Procedure Note - Detailed Date of Procedure 06/19/22 Pre-op Diagnosis bth,urine retention Post-op Diagnosis Same Procedure Performed Transurethral resection of prostate Surgeon Inocencio Matthew MD Anesthesia General Description of Procedure Patient is taken to the operative suite correctly identified. Once anesthesia was obtained was placed in dorsal lithotomy position and prepped draped usual sterile fashion. Twenty-four Canadian resectoscope sheath was inserted the bladder. The bladder is inspected. Both orifices normal anatomic position. It appears as if he has had a prior resection with some lateral lobe hyperplasia still. I resected the lateral lobes from the bladder neck to the verumontanum. I did leave some apical tissue present as his sphincter was not clear-cut. Hemostasis was achieved using electrocautery. Chips were sent for analysis. Twenty-[address] was placed with 20 cc in the balloon. 2% viscous lidocaine had been placed initially. Payne was connected to continuous bladder irrigation. Patient is taken recovery stable condition. Will be admitted overnight for CBI. This completes dictation. Please send a copy to my office Estimated Blood Loss 25 Drains Yes Packing No Pathology Yes Complications No immediate complications Condition Stable Disposition PACU
[2022-06-19] MEDS: LACTATED RINGERS 1,000 ML 30 ML IV CONT (13:02)
[2022-06-19 13:10] LABS: Glucose Point of Care 134 mg/dl (65-105)
--- NOTE | 2022-06-19 13:27 | SUR.PHASEI ---
Notified Dr. Lira of patient's new onset AFib with rate controlled at 70-80's. No new orders received.
--- NOTE | 2022-06-19 14:41 | ADMGEN ---
This patient, Evan Paige, was admitted to Medical Room 250-01. Patient/family oriented to hospital policies and general routines including ID bracelet, bed and alarms, visiting hours, pain management, procedures, bathroom and other care routines, personal items, smoking policy, room service/diet, and visiting hours. Information on how to activate the Rapid Response Team has been discussed. Patient/Family are encouraged to report perceived risks to care and to ask questions if they do not understand what they are told or what they should do.
[2022-06-19 17:08] LABS: Glucose Point of Care 151 mg/dl (65-105)
[2022-06-19] MEDS: PREGABALIN (*CRX) 50 MG CAPSULE PO (17:23)
[2022-06-19] MEDS: HYDROcodone/acetaminophen (*CRX) 5-325 MG TABLET 1 TAB PO (17:24)
[2022-06-19] MEDS: carvediloL 6.25 MG TABLET BY MOUTH (18:26)
[2022-06-19] MEDS: ceFAZolin 1 GM/NS 50 ML 1 GM/50 ML BAG IVPB (20:19)
[2022-06-19] MEDS: DOCUSATE SODIUM 100 MG CAPSULE PO (20:20)
[2022-06-20] VITALS (9 sets, daily range): BP systolic 149–181; BP diastolic 49–64; PULSE 65–80; RESP 16–20; TEMP 36.3–37.1; O2SAT 94–100
[2022-06-20] MEDS: ceFAZolin 1 GM/NS 50 ML 1 GM/50 ML BAG IVPB (04:00)
[2022-06-20 04:11] LABS: Glucose Point of Care 130 mg/dl (65-105)
[2022-06-20 07:29] LABS: Anion Gap 3 mmol/L (8-16); Blood Urea Nitrogen 33 mg/dL (9-20); Calcium 8.4 mg/dL (8.4-10.2); Carbon Dioxide 28 mmol/L (22-30); Chloride 106 mmol/L (98-107); Estimated CRCL calculation 33 ml/min; Estimated Glomerular Filt Rate 34; Glucose 126 mg/dL (65-110); Potassium 4.2 mmol/L (3.4-5.0); Sodium 137 mmol/L (137-145)
[2022-06-20 08:50] LABS: Glucose Point of Care 131 mg/dl (65-105)
[2022-06-20] MEDS: carvediloL 6.25 MG TABLET BY MOUTH ×2 (09:14→16:52)
[2022-06-20] MEDS: DOCUSATE SODIUM 100 MG CAPSULE PO ×2 (09:14→20:53)
[2022-06-20] MEDS: SIMVASTATIN 20 MG TABLET 40 MG PO (09:14)
[2022-06-20] MEDS: PREGABALIN (*CRX) 50 MG CAPSULE PO ×2 (09:18→16:53)
[2022-06-20] MEDS: allopurinoL 300 MG TABLET PO (09:33)
[2022-06-20] MEDS: CEPHALEXIN 500 MG CAPSULE PO ×4 (09:33→20:53)
[2022-06-20] MEDS: GLIMEPIRIDE 1 MG TABLET PO (09:34)
[2022-06-20 09:47] LABS: Hematocrit 35.8 % (42.0-52.0); Hemoglobin 11.5 g/dL (14.0-18.0)
--- NOTE | 2022-06-20 10:25 | WPDANESPN ---
Anes - Prog Note Post-Op Date/Time: 06/20/22 10:25 Cardiovascular status: normal Respiratory status: normal Airway patency: baseline Mental status: baseline Post-Op hydration status: normal Vital Signs: Last Vital Signs Temp 36.5 C 06/20/22 04:00 Pulse 68 06/20/22 09:14 Resp 18 06/20/22 04:00 BP 181/49 H 06/20/22 04:00 Pulse Ox 95 06/20/22 04:00 O2 Del Method Room Air 06/19/22 20:00 O2 Flow Rate 8 06/19/22 13:15 Pain Score (VAS): states he doesn't have any pain just a burning sensation with urination. I/O: Intake & Output 06/19/22 06/20/22 06/20/22 23:59 07:59 15:59 Intake Total 290 50 120 Output Total 300 Balance -10 50 120 Laboratory Tests 06/20/22 06:31 06/20/22 06:31 06/19/22 06/19/22 06/19/22 11:11 13:08 17:05 Hgb Hct Sodium Potassium Chloride Carbon Dioxide Anion Gap BUN Creatinine Estim Creat Clear Calc Estimated GFR Glucose POC Capillary Glucose 144 H 134 H 151 H Calcium 06/19/22 06/20/22 06/20/22 20:14 06:31 08:44 Hgb 11.5 L Hct 35.8 L Sodium 137 Potassium 4.2 Chloride 106 Carbon Dioxide 28 Anion Gap 3 L BUN 33 H Creatinine 1.90 H Estim Creat Clear Calc 33 Estimated GFR 34 L Glucose 126 H POC Capillary Glucose 130 H 131 H Calcium 8.4 Post-procedural complaints: none Patient Feedback: Patient satisfied with anesthetic care.
--- NOTE | 2022-06-20 12:41 | WPDUROPN2 ---
Progress Note: A&P Assessment and Plan (1) Urinary retention: Code(s): R33.9 - Retention of urine, unspecified Status: Acute Assessment and Plan: doing well at this time. Hold CBI. If urine remains clear will be discharged later today with Payne catheter. Plan on Payne catheter removal next Saturday or Saturday Subjective Subjective Date/Time Seen: 06/20/22 12:41 Post Op day: 1 (Transurethral resection of prostate) Principal diagnosis: urinary retention Interval history: doing well at this time. Urine fairly clear with minimal CBI Review of Systems Review of Systems: All systems reviewed & are unremarkable except as noted in HPI and below Exam Const: General: cooperative and comfortable Resp: Effort & Inspection: normal respiratory effort Cardio: Rate: regular rate Rhythm: regular rhythm Urinary Catheter: Urinary Catheter: patent and draining and urine clear Objective Data Vital Signs Vital Signs: Vital Signs - 24 hr 06/19/22 13:02 06/19/22 13:15 06/19/22 13:30 Temperature 36.7 C Pulse Rate 75 75 76 Respiratory Rate 14 14 18 Blood Pressure 184/73 H 173/88 H 187/80 H Pulse Oximetry 99 100 93 Oxygen Delivery Simple Face Mask Simple Face Mask Room Air Oxygen Flow Rate 8 8 06/19/22 13:45 06/19/22 14:00 06/19/22 14:15 Temperature 36.3 C L Pulse Rate 74 80 81 Respiratory Rate 18 18 18 Blood Pressure 188/70 H 162/95 H 143/79 H Pulse Oximetry 97 94 93 Oxygen Delivery Room Air Room Air Oxygen Flow Rate 06/19/22 14:30 06/19/22 15:00 06/19/22 18:26 Temperature 36.6 C 36.6 C Pulse Rate 78 80 80 Respiratory Rate 18 18 Blood Pressure 152/83 H 187/78 H Pulse Oximetry 94 97 Oxygen Delivery Oxygen Flow Rate 06/19/22 18:43 06/19/22 19:05 06/19/22 20:00 Temperature 36.5 C 36.2 C L Pulse Rate 72 66 Respiratory Rate 18 18 Blood Pressure 161/75 H 132/42 L Pulse Oximetry 100 96 Oxygen Delivery Room Air Oxygen Flow Rate 06/20/22 04:00 06/19/22 20:00 06/20/22 09:14 Temperature 36.5 C Pulse Rate 65 68 Respiratory Rate 18 Blood Pressure 181/49 H Pulse Oximetry 95 Oxygen Delivery Room Air Oxygen Flow Rate 06/20/22 09:18 06/20/22 10:26 Temperature 36.4 C L Pulse Rate 80 Respiratory Rate 18 20 Blood Pressure 149/60 H Pulse Oximetry 94 97 Oxygen Delivery Room Air Oxygen Flow Rate Intake/Output Intake/Output: Intake & Output 06/17/22 06/18/22 06/19/22 06/20/22 23:59 23:59 23:59 23:59 Intake Total 440 170 Output Total 4700 500 Balance -4260 -330 Meds/Results Medications: Active Medications Generic Name Dose Route Start Last Admin Trade Name Freq PRN Reason Stop Dose Admin Hydrocodone Bitart/Acetaminophen 1 tab 06/19/22 14:04 06/19/22 17:24 Hydrocodone/Acetaminophen (*Crx) 5-325 Mg Tablet PO 1 tab Q4H PRN Administration Pain Rated 1-6 Allopurinol 300 mg 06/20/22 09:00 06/20/22 09:33 Allopurinol 300 Mg Tablet PO 300 mg DAILY ALLIE Administration Carvedilol 6.25 mg 06/19/22 17:00 06/20/22 09:14 Carvedilol 6.25 Mg Tablet BY MOUTH 6.25 mg BIDWM ALLIE Administration Cephalexin HCl 500 mg 06/20/22 09:00 06/20/22 09:33 Cephalexin 500 Mg Capsule PO 500 mg QID ALLIE Administration Docusate Sodium 100 mg 06/19/22 21:00 06/20/22 09:14 Docusate Sodium 100 Mg Capsule PO 100 mg Q12HR ALLIE Administration Glimepiride 1 mg 06/20/22 08:00 06/20/22 09:34 Glimepiride 1 Mg Tablet PO 1 mg DAILY@0800 ALLIE Administration Hyoscyamine 0.125 mg 06/19/22 14:04 Hyoscyamine Sulfate 0.125 Mg Tablet SUBLINGUAL Q6H PRN Bladder Spasm Morphine Sulfate 2 mg 06/19/22 14:04 Morphine Sulfate (*Crx) 2 Mg/Ml Inj IV PUSH Q2H PRN Pain Rated 7-10 Naloxone HCl 0.1 mg 06/19/22 14:04 Naloxone Hcl 0.4 Mg/Ml Vial IV PUSH Q2M PRN Opiate Reversal Ondansetron HCl 4 mg 06/19/22 14:04 Ondansetron Inj 4 Mg/2 Ml Vial IV
[2022-06-20 17:22] LABS: Glucose Point of Care 100 mg/dl (65-105)
[2022-06-20 20:45] LABS: Glucose Point of Care 157 mg/dl (65-105)
[2022-06-21 01:33] VITALS: BP 153/65; PULSE 64; RESP 18; TEMP 37; O2SAT 96
[2022-06-21 05:00] VITALS: BP 150/84; PULSE 82; RESP 17; TEMP 36.8; O2SAT 99
[2022-06-21 08:32] VITALS: PULSE 84
[2022-06-21] MEDS: carvediloL 6.25 MG TABLET BY MOUTH (08:32)
[2022-06-21] MEDS: SIMVASTATIN 20 MG TABLET 40 MG PO (08:33)
[2022-06-21] MEDS: allopurinoL 300 MG TABLET PO (08:33)
[2022-06-21] MEDS: GLIMEPIRIDE 1 MG TABLET PO (08:33)
[2022-06-21] MEDS: PREGABALIN (*CRX) 50 MG CAPSULE PO (08:33)
[2022-06-21] MEDS: DOCUSATE SODIUM 100 MG CAPSULE PO (08:33)
[2022-06-21] MEDS: CEPHALEXIN 500 MG CAPSULE PO ×2 (08:33→12:35)
[2022-06-21 09:30] VITALS: BP 151/70; PULSE 70; RESP 18; TEMP 36.6; O2SAT 96
--- NOTE | 2022-06-21 11:32 | WPDUROPN2 ---
Progress Note: A&P Assessment and Plan (1) Urinary retention: Code(s): R33.9 - Retention of urine, unspecified Status: Acute Assessment and Plan: Ok to discharge home with victor. Urine is clear off CBI. Subjective Subjective Date/Time Seen: 06/21/22 11:32 Objective Data Vital Signs Vital Signs: Vital Signs - 24 hr 06/20/22 14:19 06/20/22 16:52 06/20/22 18:55 Temperature 98.8 F 97.4 F L Pulse Rate 71 72 71 Respiratory Rate 18 16 Blood Pressure 163/64 H 160/63 H Pulse Oximetry 100 98 Oxygen Delivery 06/20/22 21:03 06/20/22 20:00 06/21/22 01:33 Temperature 98.3 F 98.6 F Pulse Rate 65 64 Respiratory Rate 18 18 Blood Pressure 149/62 H 153/65 H Pulse Oximetry 98 96 Oxygen Delivery Room Air 06/21/22 05:00 06/20/22 23:35 06/21/22 08:32 Temperature 98.3 F Pulse Rate 82 65 84 Respiratory Rate 17 Blood Pressure 150/84 H Pulse Oximetry 99 98 Oxygen Delivery 06/21/22 08:15 06/21/22 09:30 Temperature 97.9 F Pulse Rate 70 Respiratory Rate 18 Blood Pressure 151/70 H Pulse Oximetry 96 Oxygen Delivery Room Air Intake/Output Intake/Output: Intake & Output 06/18/22 06/19/22 06/20/22 06/21/22 23:59 23:59 23:59 23:59 Intake Total 440 900 340 Output Total 4700 2800 1000 Balance -4260 -1900 -660 Meds/Results Medications: Active Medications Generic Name Dose Route Start Last Admin Trade Name Freq PRN Reason Stop Dose Admin Hydrocodone Bitart/Acetaminophen 1 tab 06/19/22 14:04 06/19/22 17:24 Hydrocodone/Acetaminophen (*Crx) 5-325 Mg Tablet PO 1 tab Q4H PRN Administration Pain Rated 1-6 Allopurinol 300 mg 06/20/22 09:00 06/21/22 08:33 Allopurinol 300 Mg Tablet PO 300 mg DAILY ALLIE Administration Carvedilol 6.25 mg 06/19/22 17:00 06/21/22 08:32 Carvedilol 6.25 Mg Tablet BY MOUTH 6.25 mg BIDWM ALLIE Administration Cephalexin HCl 500 mg 06/20/22 09:00 06/21/22 08:33 Cephalexin 500 Mg Capsule PO 500 mg QID ALLIE Administration Docusate Sodium 100 mg 06/19/22 21:00 06/21/22 08:33 Docusate Sodium 100 Mg Capsule PO 100 mg Q12HR ALLIE Administration Glimepiride 1 mg 06/20/22 08:00 06/21/22 08:33 Glimepiride 1 Mg Tablet PO 1 mg DAILY@0800 ALLIE Administration Hyoscyamine 0.125 mg 06/19/22 14:04 Hyoscyamine Sulfate 0.125 Mg Tablet SUBLINGUAL Q6H PRN Bladder Spasm Morphine Sulfate 2 mg 06/19/22 14:04 Morphine Sulfate (*Crx) 2 Mg/Ml Inj IV PUSH Q2H PRN Pain Rated 7-10 Naloxone HCl 0.1 mg 06/19/22 14:04 Naloxone Hcl 0.4 Mg/Ml Vial IV PUSH Q2M PRN Opiate Reversal Ondansetron HCl 4 mg 06/19/22 14:04 Ondansetron Inj 4 Mg/2 Ml Vial IV PUSH Q12H PRN Nausea And Vomiting Pregabalin 50 mg 06/19/22 17:00 06/21/22 08:33 Pregabalin (*Crx) 50 Mg Capsule PO 50 mg BID ALLIE Administration Simvastatin 40 mg 06/20/22 09:00 06/21/22 08:33 Simvastatin 20 Mg Tablet PO 40 mg DAILY ALLIE Administration Labs Labs: Laboratory Results - last 24 hr 06/20/22 06/20/22 17:07 19:48 POC Capillary Glucose 100 157 H
--- NOTE | 2022-06-21 11:41 | WPDUROPN2 ---
Progress Note: A&P Assessment and Plan (1) Urinary retention: Code(s): R33.9 - Retention of urine, unspecified Status: Acute Assessment and Plan: Ok to discharge home with leg bag. Subjective Subjective Date/Time Seen: 06/21/22 11:41 POD #2 TURP The patient is doing very well today. Tolerating diet, activity and pain. Urine is clear off CBI. Post Op day: 2 Review of Systems Cardiovascular: Cardiovascular: Denies chest pain Respiratory: Respiratory: Reports no additional respiratory complaints Gastrointestinal: Gastrointestinal: Denies abdominal pain, Denies nausea and Denies vomiting Genitourinary: Genitourinary: Denies hematuria, Denies dysuria, Denies flank pain, Denies urinary frequency, Denies urinary hesitancy, Denies urinary incontinence and Denies urinary urgency Exam Const: General: cooperative Resp: Effort & Inspection: normal respiratory effort Cardio: Rate: regular rate GI: GI Palp: Yes Soft to palpation and No Tenderness to palpation present (GI) Urinary Catheter: Urinary Catheter: patent and draining and urine clear Extrem: Right lower extremity: no edema Left lower extremity: no edema Objective Data Vital Signs Vital Signs: Vital Signs - 24 hr 06/20/22 14:19 06/20/22 16:52 06/20/22 18:55 Temperature 98.8 F 97.4 F L Pulse Rate 71 72 71 Respiratory Rate 18 16 Blood Pressure 163/64 H 160/63 H Pulse Oximetry 100 98 Oxygen Delivery 06/20/22 21:03 06/20/22 20:00 06/21/22 01:33 Temperature 98.3 F 98.6 F Pulse Rate 65 64 Respiratory Rate 18 18 Blood Pressure 149/62 H 153/65 H Pulse Oximetry 98 96 Oxygen Delivery Room Air 06/21/22 05:00 06/20/22 23:35 06/21/22 08:32 Temperature 98.3 F Pulse Rate 82 65 84 Respiratory Rate 17 Blood Pressure 150/84 H Pulse Oximetry 99 98 Oxygen Delivery 06/21/22 08:15 06/21/22 09:30 Temperature 97.9 F Pulse Rate 70 Respiratory Rate 18 Blood Pressure 151/70 H Pulse Oximetry 96 Oxygen Delivery Room Air Intake/Output Intake/Output: Intake & Output 06/18/22 06/19/22 06/20/22 06/21/22 23:59 23:59 23:59 23:59 Intake Total 440 900 340 Output Total 4477 2623 1000 [facility] -4260 -1900 -660 Meds/Results Medications: Active Medications Generic Name Dose Route Start Last Admin Trade Name Freq PRN Reason Stop Dose Admin Hydrocodone Bitart/Acetaminophen 1 tab 06/19/22 14:04 06/19/22 17:24 Hydrocodone/Acetaminophen (*Crx) 5-325 Mg Tablet PO 1 tab Q4H PRN Administration Pain Rated 1-6 Allopurinol 300 mg 06/20/22 09:00 06/21/22 08:33 Allopurinol 300 Mg Tablet PO 300 mg DAILY ALLIE Administration Carvedilol 6.25 mg 06/19/22 17:00 06/21/22 08:32 Carvedilol 6.25 Mg Tablet BY MOUTH 6.25 mg BIDWM ALLIE Administration Cephalexin HCl 500 mg 06/20/22 09:00 06/21/22 08:33 Cephalexin 500 Mg Capsule PO 500 mg QID ALLIE Administration Docusate Sodium 100 mg 06/19/22 21:00 06/21/22 08:33 Docusate Sodium 100 Mg Capsule PO 100 mg Q12HR ALLIE Administration Glimepiride 1 mg 06/20/22 08:00 06/21/22 08:33 Glimepiride 1 Mg Tablet PO 1 mg DAILY@0800 [facility] Administration Hyoscyamine 0.125 mg 06/19/22 14:04 Hyoscyamine Sulfate 0.125 Mg Tablet SUBLINGUAL Q6H PRN Bladder Spasm Morphine Sulfate 2 mg 06/19/22 14:04 Morphine Sulfate (*Crx) 2 Mg/Ml Inj IV PUSH Q2H PRN Pain Rated 7-10 Naloxone HCl 0.1 mg 06/19/22 14:04 Naloxone Hcl 0.4 Mg/Ml Vial IV PUSH Q2M PRN Opiate Reversal Ondansetron HCl 4 mg 06/19/22 14:04 Ondansetron Inj 4 Mg/2 Ml Vial IV PUSH Q12H PRN Nausea And Vomiting Pregabalin 50 mg 06/19/22 17:00 06/21/22 08:33 Pregabalin (*Crx) 50 Mg Capsule PO 50 mg BID ALLIE Administration Simvastatin 40 mg 06/20/22 09:00 06/21/22 08:33 Simvastatin 20 Mg Tablet PO 40 mg DAILY ALLIE Administration Labs Labs: Laboratory Results - last 24 hr
--- NOTE | 2022-06-21 12:09 | PM.DS ---
DS: Admitting Diagnosis Discharge Date 06/21/22 Admitting Diagnosis BPH DS: Discharge Diagnosis Discharge Diagnosis (1) Urinary retention: Code(s): R33.9 - Retention of urine, unspecified Status: Acute DS: Summary Hospital Course Hospital Course: The patient is s/p TURP on 06/19/[address] Matthew. He tolerated the procedure well and went to recovery in stable condition, then to the floor for further observation. He did well yesterday but continued to have bloody urine on CBI. We kept him overnight on CBI which was weaned to off this morning and urine is now clear. He is tolerating his diet, activity and pain well. Ok to discharge home today with victor to resume a diet as tolerated, activity no straining. Resume home meds except ASA and any other NSAID's or anticoagulants until next Saturday when the victor is removed. He will start Bactrim and Hydrocodone PRN for pain and prevention of post op infection. Time spent discussing smoking cessation with patient: more than 10 minutes Status at Discharge Functional status at discharge: wheelchair bound Overall status at discharge: patient is back to baseline Time Spent with Patient Time attestation: Total time spent providing and/or coordinating discharge services: Time spent: Less than 30 minutes Exam Const: General: cooperative Resp: Effort & Inspection: normal respiratory effort Cardio: Rate: regular rate GI: GI Palp: Yes Soft to palpation and No Tenderness to palpation present (GI) : General: Yes no CVA tenderness Urinary Catheter: Urinary Catheter: patent and draining and urine clear Extrem: Right lower extremity: no edema Left lower extremity: no edema DS: Data Data Completed and Pending Completed studies during hospitalization: Pending at discharge 06/19/22 12:41 Surgical [PTH] Routine Labs on day of discharge: Labs from last 24 hours 06/20/22 06/20/22 19:48 17:07 POC Capillary Glucose 157 H 100 Discharge Plan Discharge Attending physician on discharge: Inocencio Matthew Discharging Clinician: Sarah Pulido Anticipated Discharge Date/Time: 06/21/22 11:49 Patient Disposition: Home, Self-Care Activity: no straining Diet: as tolerated Wound Care Instructions: incision open to air Discharge Instructions: Follow up on 06/25/22 at 11:30 for a voiding trial. Call the office or go to the ER if your catheter stops draining, you have grossly bloody urine, severe abdominal pain or develop a fever. You will have antibiotics and pain meds sent to the pharmacy. Patient Instructions: Antibiotic Form, Victor Catheter Placement and Care (DC) Stand Alone Forms: General Discharge Information Follow-up/Referrals: Inocencio Matthew MD [Physician] - Discharge Medications: Continued omega-3 fatty acids [Fish Oil Concentrate] 1,000 mg capsule 1,000 mg PO BID acetaminophen 500 mg tablet 500 mg PO Q6H PRN (Reason: Pain (Scale Score 1-3)) Rx Instructions: mild pain 1-3 or fever finasteride 5 mg tablet 5 mg PO DAILY cephalexin 250 mg capsule 250 mg PO QHS cholecalciferol (vitamin D3) 2,000 unit tablet 50 mcg PO DAILY magnesium oxide 400 mg magnesium Capsule 400 mg PO BID levalbuterol HCl 0.63 mg/3 mL Solution For Nebulization 0.63 mg INHALATION Q6H PRN (Reason: Shortness Of Breath) cefdinir 300 mg capsule 300 mg PO Q12H Qty: 14 0RF memantine 10 mg tablet 10 mg PO DAILY Qty: 90 1RF Patient Comments: HS simvastatin 40 mg tablet 40 mg PO DAILY Qty: 90 1RF glimepiride 1 mg tablet 1 mg PO QAM Qty: 90 1RF Rx Instructions: administer with breakfast carvedilol 6.25 mg tablet See Rx Instructions .ROUTE .COMPLEX Qty: 180 2RF Dose Instruction: TAKE 1 TABLET BY MOUTH EVERY 12 HOURS Rx Instructions: TAKE 1 TABLET BY MOUTH EVERY 12 HOURS Bydureon BCise 2 mg/0.85 mL auto-injector 2 mg SUBCUT WEEKL
== END 2022-06-21 13:35 | disposition home health service (06) ==
LOC: ANHSURGERY 16:58 → ANH2MED 16:58
PROVIDERS: Admitting Provider Urology; PCP Family Medicine; Visit Provider Urology
PROC: 0VT08ZZ Resection of Prostate, Via Natural or Artificial Opening Endoscopic (ICD-10-PCS; CPT 52601; principal; 2022-06-19 12:30)
DX: N40.1 Benign prostatic hyperplasia with lower urinary tract symptoms (principal); R33.9 Retention of urine, unspecified; R06.02 Shortness of breath; I25.10 Atherosclerotic heart disease of native coronary artery without angina pectoris; I13.0 Hypertensive heart and chronic kidney disease with heart failure and stage 1 through stage 4 chronic kidney disease, or unspecified chronic kidney disease; E11.22 Type 2 diabetes mellitus with diabetic chronic kidney disease; N18.30 Chronic kidney disease, stage 3 unspecified; J44.9 Chronic obstructive pulmonary disease, unspecified; I50.31 Acute diastolic (congestive) heart failure; R26.89 Other abnormalities of gait and mobility; M10.9 Gout, unspecified; E66.01 Morbid (severe) obesity due to excess calories; Z68.36 Body mass index [BMI] 36.0-36.9, adult; F03.90 Unspecified dementia, unspecified severity, without behavioral disturbance, psychotic disturbance, mood disturbance, and anxiety; E11.51 Type 2 diabetes mellitus with diabetic peripheral angiopathy without gangrene; M81.0 Age-related osteoporosis without current pathological fracture; F10.90 Alcohol use, unspecified, uncomplicated; R53.82 Chronic fatigue, unspecified; E55.9 Vitamin D deficiency, unspecified; E78.5 Hyperlipidemia, unspecified; Z86.73 Personal history of transient ischemic attack (TIA), and cerebral infarction without residual deficits; Z87.891 Personal history of nicotine dependence; Z79.82 Long term (current) use of aspirin; Z79.1 Long term (current) use of non-steroidal anti-inflammatories (NSAID); Z79.84 Long term (current) use of oral hypoglycemic drugs; Z79.899 Other long term (current) drug therapy
CPT/HCPCS: 52601; 36415; 80048; 82948; 85014; 85018; 88305; A9270; G0378; J0690; J2405; J2704; J3010; J7120

== ENCOUNTER 2022-07-30 16:40 | Emergency (ER) | payer MEDICARE, SELFPAY ==
--- NOTE | ~2022-07-30 | CT_ITS ---
Noncontrast CT scan of the thoracic spine CLINICAL HISTORY: Back pain TECHNIQUE: Axial noncontrast imaging of the thoracic spine was performed. Sagittal and coronal reform atted images were constructed. Dose reduction technique was used on this scan by utilizing automated exposure control and iterative reconstruction technique. The dose-length product (DLP) was 1681.56 mG y-cm. Findings: No acute fracture or subluxation identified. Vertebral bodies maintain normal height and al ignment. Diffuse flowing osteophytes are present anteriorly and laterally. Intervertebral disc spaces are relatively well preserved throughout the thoracic spine. There is probable mild canal stenosis at T10-T11, related to bony productive change. No other svetlana s ray canal stenosis evident. Extensive atherosclerotic changes of abdominal aorta noted. Small right pleural effusion present. IMPRESSION: No fracture or subluxation. Extensive DISH of the thoracic spine. Probable mild canal stenosis at T10-T11. Reviewed, dictated and finalized at [facility].
--- NOTE | ~2022-07-30 | CT_ITS ---
EXAMINATION: CT cervical spine wo con DATE: 07/30/2022 17:29 INDICATION: fall TECHNIQUE: Computed tomography (CT) of the cervical spine was performed without intravenous contrast. Automated exposure control and iterative reconstruction technique were employed. The dose-length pro duct was 597.52 mGy-cm. COMPARISON: None. FINDINGS: Vertebral Body Alignment: Intact. Cervical straightening. Craniocervical and atlantoaxial alignment: Moderate degenerative change, with pannus. Alignment intac t. Osseous structures/fracture: No evidence of a lytic or blastic process in the visualized spine. No e vidence of acute fracture. Multilevel facet fusion and vertebral body fusion. Large bridging anterior osteophytes. Cervical soft tissues: The paraspinal soft tissues planes are maintained. Degenerative changes: Significant multilevel degenerative disc disease and facet arthropathy. Multile leana bilateral moderate neural foraminal narrowing. No severe central canal stenosis. IMPRESSION: No acute fracture or traumatic malalignment in the cervical spine. Reviewed, dictated and finalized at location [facility].
--- NOTE | ~2022-07-30 | XR_ITS ---
Clinical Indication: Syncope AP and lateral views of the chest: Comparison: 12/25/2021 Findings: Possible minimal pleural effusions based on blunting of costophrenic angles the lateral vie w. Possible COPD. Cardiomediastinal silhouette is within normal limits. Bones and soft tissues are un remarkable. Impression: Suspected COPD. Possible minimal pleural effusions. Reviewed, dictated and finalized at location . Impression: Suspected COPD. Possible minimal pleural effusions.
--- NOTE | ~2022-07-30 | CT_ITS ---
EXAMINATION: CT brain wo con DATE: 07/30/2022 17:28 INDICATION: fall . TECHNIQUE: Computed tomography (CT) of the head was performed without intravenous contrast. The mA wa s adjusted according to patient size. Iterative reconstruction technique was employed. The dose-lengt h product was 1210.67 mGy-cm. COMPARISON: None. FINDINGS: Motion artifact is present which persisted in repeated imaging attempts. No acute intracranial hemorrhage or extra-axial fluid collection. No hydrocephalus, mass, or herniation. No acute ischemic infarct. Unremarkable dural venous sinus attenuation. No acute osseous abnormality. Trace left mastoid fluid. Small retention cyst or polyp in the left sphenoid sinus. Mucosal thickenin g in the ethmoid air cells aerated spaces are clear. Moderate atrophy and chronic white matter change. Atherosclerotic intracranial calcification. Bilater al lens replacements. Old left basal ganglia lacunar infarct. IMPRESSION: Motion limited examination. Within that constraint, no acute intracranial process is detected. Reviewed, dictated and finalized at location [facility]. IMPRESSION: Motion limited examination. Within that constraint, no acute intracranial proce ss is detected.
--- NOTE | ~2022-07-30 | CT_ITS ---
CT head without contrast Indication: Status post fall COMPARISON: 07/30/2022 at 5:17 PM Technique: Serial scans were obtained through the brain without the administration of contrast. Dose reduction technique was used on this scan by utilizing automated exposure control and iterative recon struction technique. The dose-length product (DLP) was 681.00 mGy-cm. Findings: There is no evidence of intracranial hemorrhage, mass lesion, or acute infarct. The ventri cles and subarachnoid spaces are dilated, consistent with mild atrophy. Low attenuation regions are seen within the periventricular white matter bilaterally, likely representing changes from chronic mi crovascular ischemic disease. There is no evidence of edema, mass effect or midline shift. The visu alized paranasal sinuses and mastoid air cells are clear. Impression: No intracranial hemorrhage, mass, or acute infarct. Atrophy and chronic white matter changes, as above. Reviewed, dictated and finalized at [facility]. Impression: No intracranial hemorrhage, mass, or acute infarct. Atrophy and chronic white matter changes, as above.
[2022-07-30 16:42] VITALS: BP 206/97; PULSE 72; RESP 20; TEMP 36.2; O2SAT 97
--- NOTE | 2022-07-30 22:18 | ECG_ITS ---
Measurements Intervals [place] Rate: 90 P: -58 ND: 151 QRS: -9 QRSD: 105 T: 116 QT: 399 QTc: 491 Interpretive Statements SINUS RHYTHM WITH FREQUENT SUPRAVENTRICULAR PREMATURE COMPLEXES POOR R-WAVE PROGRESSION ABNORMAL RHYTHM ECG COMPARED TO ECG 12/20/2021 14:47:04 NO SIGNIFICANT CHANGES Electronically Signed On 07-31-2022 15:02:02 CDT by Dianne Campos M.D.
--- NOTE | 2022-07-30 22:51 | ED.FALL ---
HPI - Fall General Chief Complaint: Fall <DANIEL Davila Last Filed: 07/31/22 01:03> Stated Complaint: fall <DANIEL Davila Last Filed: 07/31/22 01:03> Time Seen by Provider: 07/30/22 21:30 <DANIEL Davila Last Filed: 07/31/22 01:03> Source: patient <DANIEL Davila Last Filed: 07/31/22 01:03> Mode of arrival: ambulatory <DANIEL Davila Last Filed: 07/31/22 01:03> Limitations: no limitations <DANIEL Davila Last Filed: 07/31/22 01:03> History of Present Illness HPI Narrative: Patient is an 81-year-old male who presents to the ED with c/o a fall. Patient reports he was going to use the restroom today when he thinks his walker got caught on the door and he fell while trying to turn around to sit on the toilet. He is not sure exactly how the fall occurred. He states he thinks he remembers the fall entirely. He denied any dizziness or lightheadedness prior to or after the fall. He did hit his head in the fall. Denied LOC. He was able to call for help and eventually get up on his own. He complains of pain to his neck, upper back. Denies any numbness or tingling. Denies any chest pain, difficulty breathing, abdominal pain, nausea, vomiting, vision changes. Patient takes an aspirin 81 mg daily, no other blood thinners. <DANIEL Davila Last Filed: 07/31/22 01:03> Related Data Home Medications: Home Medications Medication Instructions Recorded Confirmed cholecalciferol (vitamin D3) 50 50 mcg PO DAILY 10/24/19 07/30/22 mcg (2,000 unit) tablet omega-3 fatty acids 1,000 mg 1,000 mg PO BID 11/03/19 07/30/22 capsule (Fish Oil Concentrate) acetaminophen 500 mg tablet 500 mg PO Q6H PRN Pain (Scale 02/21/21 07/30/22 Score 1-3) magnesium oxide 400 mg PO BID 05/11/21 06/19/22 levalbuterol HCl 0.63 mg/3 mL 0.63 mg inhalation Q6H PRN 12/20/21 07/30/22 solution for nebulization Shortness Of Breath cephalexin 250 mg capsule 250 mg PO QHS 03/26/22 07/30/22 finasteride 5 mg tablet 5 mg PO DAILY 03/26/22 07/30/22 <Melany Yoder PA-C - Last Filed: 07/31/22 01:03> Allergies/Adverse Reactions: Allergies Allergy/AdvReac Type Severity Reaction Status Date / Time citalopram Allergy Mild Hives Verified 07/30/22 16:41 hydrochlorothiazide Allergy Mild Hives Verified 07/30/22 16:41 <Melany Yoder PA-C - Last Filed: 07/31/22 01:03> Review of Systems Review of Systems: CONSTITUTIONAL: Denies fever, chills, or sweats. EYES: Denies visual changes. CARDIOVASCULAR: Denies chest pain. RESPIRATORY: Denies dyspnea. GASTROINTESTINAL: Denies abdominal pain, nausea, vomiting. MUSCULOSKELETAL: See HPI. NEUROLOGIC: See HPI. <Melany Yoder PA-C - Last Filed: 07/31/22 01:03> All systems reviewed & are unremarkable except as noted in HPI and below <Melany Yoder PA-C - Last Filed: 07/31/22 01:03> PMFSH Past Medical History Medical History: Medical History Abdominal mass Acute cystitis Adult BMI 37.0-37.9 kg/sq m Anxiety disorder, unspecified Benign prostatic hyperplasia (BPH) with straining on urination Benign prostatic hyperplasia with lower urinary tract symptoms Blister of toe BMI 36.0-36.9,adult BMI 38.0-38.9,adult BMI 40.0-44.9, adult BMI over 35 Bronchitis Cerebrovascular accident (CVA) Chest pain Chest pain CHF (congestive heart failure) Chronic bilateral low back pain with bilateral sciatica Chronic fatigue Chronic obstructive pulmonary disease CKD (chronic kidney disease), stage III Congestive heart failure last echo February of 2019 impaired diastolic relaxation grade 1 estimated ejection fraction of 50-55%. COPD (chronic obstructive pulmonary disease) Coronary artery disease (~2018) CVA (cerebral vascular accident) Dementia Diabetes with ulcer of toe Dyspnea Essential (primary
[2022-07-30 22:59] LABS: Basophils Absolute Auto 0.1 K/mm3 (0.0-0.1); Basophils Percent Auto 0.5 % (0.2-1.2); Eosinophils Absolute Auto 0.1 K/mm3 (0-0.3); Eosinophils Percent Auto 0.4 % (0-4.4); Hemoglobin 13.3 g/dL (14.0-18.0); Immature Granulocyte Absolute 0.07 K/mm3 (0.00-0.031); Immature Granulocyte Percent A 0.4 % (0-0.5); Lymphocytes Absolute Auto 1.14 K/mm3 (0.9-3.2); Lymphocytes Percent Auto 7.3 % (18.3-44.2); Mean Corpuscular HGB Conc 33.3 g/dl (32-36); Mean Corpuscular Hemoglobin 32.5 pg (26-34); Mean Corpuscular Volume 97.8 fl (80-100); Mean Platelet Volume 10.7 fl (7.4-10.4); Monocytes Absolute Auto 0.6 K/mm3 (0.1-0.6); Monocytes Percent Auto 3.6 % (2.6-8.5); Neutrophils Absolute Auto 13.8 K/mm3 (1.3-6.7); Neutrophils Percent Auto 87.8 % (45.5-73.1); Platelet Count Result 213 k/mm3 (150-375); Red Blood Count 4.09 M/mm3 (4.6-6.20); Red Cell Distribution Width 13.8 % (11.5-14.5); White Blood Count 15.7 K/mm3 (4.5-10.0)
[2022-07-30 23:10] LABS: Alanine Aminotransferase 17 U/L (6-50); Albumin Level 3.9 g/dL (3.5-5.1); Alkaline Phosphatase 75 U/L (38-126); Anion Gap 3 mmol/L (8-16); Aspartate Amino Transferase 37 U/L (17-59); Blood Urea Nitrogen 28 mg/dL (9-20); Calcium 8.8 mg/dL (8.4-10.2); Carbon Dioxide 31 mmol/L (22-30); Chloride 103 mmol/L (98-107); Estimated CRCL calculation 36 ml/min; Estimated Glomerular Filt Rate 36; Glucose 173 mg/dL (65-110); Potassium 4.4 mmol/L (3.4-5.0); Sodium 137 mmol/L (137-145)
[2022-07-30] MEDS: MORPHINE SULFATE (*CRX) 4 MG/ML INJ IV PUSH (23:12)
[2022-07-30] MEDS: ACETAMINOPHEN 325 MG TABLET 650 MG PO (23:12)
[2022-07-30] MEDS: ONDANSETRON INJ 4 MG/2 ML VIAL IV PUSH (23:13)
[2022-07-30 23:35] VITALS: BP 176/121; PULSE 93; PULSE 94; RESP 13; O2SAT 94
[2022-07-30] MEDS: carvediloL 6.25 MG TABLET PO (23:35)
[2022-07-30 23:43] LABS: Appearance Urine Cloudy (Clear); Bilirubin Urine Negative (Negative); Blood Urine 3+ (Negative); Color Urine Yellow (Yellow); Glucose Urine UA Trace mg/dL (Negative); Ketones Urine 1+ mg/dL (Negative); Leukocyte Esterase Ur 2+ LEU/UL (Negative); Nitrate Urine Negative (Negative); Non Pathogenic Casts 0-2; Protein Urine 4+ mg/dL (Negative); RBC Urine 21-50 /hpf (0-2); Specific Grav Ur 1.018 (1.001-1.035); Squamous Epithelial Cell Urine None seen /hpf (Few); WBC Urine >100 /hpf
[2022-07-30 23:53] LABS: Add Urine Microscopic? YES
[2022-07-30 23:54] LABS: Bacteria Urine 1+ /hpf
[2022-07-31 01:04] VITALS: BP 180/69; PULSE 64; RESP 16; O2SAT 95
[2022-07-31 01:05] VITALS: O2SAT 95
[2022-07-31 03:30] VITALS: BP 154/94; PULSE 88; RESP 14; O2SAT 96
== END 2022-07-31 03:59 | disposition short-term general hospital (02) ==
PROVIDERS: Emergency Provider Physician Assistant; PCP Family Medicine
DX: S06.5X0A Traumatic subdural hemorrhage without loss of consciousness, initial encounter (principal); N30.01 Acute cystitis with hematuria; E11.22 Type 2 diabetes mellitus with diabetic chronic kidney disease; I13.0 Hypertensive heart and chronic kidney disease with heart failure and stage 1 through stage 4 chronic kidney disease, or unspecified chronic kidney disease; N18.30 Chronic kidney disease, stage 3 unspecified; I50.9 Heart failure, unspecified; E11.51 Type 2 diabetes mellitus with diabetic peripheral angiopathy without gangrene; I73.9 Peripheral vascular disease, unspecified; E11.40 Type 2 diabetes mellitus with diabetic neuropathy, unspecified; E78.2 Mixed hyperlipidemia; N40.1 Benign prostatic hyperplasia with lower urinary tract symptoms; R39.16 Straining to void; N39.498 Other specified urinary incontinence; M17.0 Bilateral primary osteoarthritis of knee; M81.0 Age-related osteoporosis without current pathological fracture; M10.9 Gout, unspecified; G47.33 Obstructive sleep apnea (adult) (pediatric); E66.01 Morbid (severe) obesity due to excess calories; Z68.37 Body mass index [BMI] 37.0-37.9, adult; E55.9 Vitamin D deficiency, unspecified; Z95.5 Presence of coronary angioplasty implant and graft; Z96.653 Presence of artificial knee joint, bilateral; Z90.79 Acquired absence of other genital organ(s); Z98.42 Cataract extraction status, left eye; Z98.41 Cataract extraction status, right eye; Z96.1 Presence of intraocular lens; Z87.891 Personal history of nicotine dependence; Z87.442 Personal history of urinary calculi; Z87.440 Personal history of urinary (tract) infections; Z79.84 Long term (current) use of oral hypoglycemic drugs; Z79.82 Long term (current) use of aspirin; I49.1 Atrial premature depolarization; M48.10 Ankylosing hyperostosis [Forestier], site unspecified; R91.8 Other nonspecific abnormal finding of lung field; W18.30XA Fall on same level, unspecified, initial encounter
CPT/HCPCS: 36415; 70450; 71046; 72125; 72128; 80053; 81001; 84484; 85025; 87077; 87086; 87186; 93005; 96365; 96375; 99285; A9270; J0696; J2270; J2405

== ENCOUNTER 2022-08-05 23:42 | Inpatient (IN) | payer MEDICARE, SELFPAY ==
--- NOTE | ~2022-08-05 | XR_ITS ---
Clinical Indication: Shortness of breath AP view of the chest: Comparison: 07/30/2022 Findings: There is mild interstitial prominence in the lungs, especially lung bases. No definite pleu ral effusion. Possible right basilar atelectasis.. Cardiomediastinal silhouette is within normal ortiz its. Bones and soft tissues are unremarkable. Impression: Mild bibasilar chronic interstitial disease, or possibly COPD change. Probable right basilar atelectasis. Reviewed, dictated and finalized at location . Impression: Mild bibasilar chronic interstitial disease, or possibly COPD change. Probable right basilar atelectasis.
--- NOTE | ~2022-08-05 | CT_ITS ---
CT head without contrast Indication: Confusion COMPARISON: 07/31/2022 Technique: Serial scans were obtained through the brain without the administration of contrast. Dose reduction technique was used on this scan by utilizing automated exposure control and iterative recon struction technique. The dose-length product (DLP) was 681.00 mGy-cm. Findings: There is no evidence of intracranial hemorrhage, mass lesion, or acute infarct. The ventri cles and subarachnoid spaces are dilated, consistent with mild atrophy. Low attenuation regions are seen within the periventricular white matter bilaterally, likely representing changes from chronic mi crovascular ischemic disease. There is no evidence of edema, mass effect or midline shift. The visu alized paranasal sinuses and mastoid air cells are clear. Impression: No intracranial hemorrhage, mass, or acute infarct. Atrophy and chronic white matter changes, as above. Reviewed, dictated and finalized at location . Impression: No intracranial hemorrhage, mass, or acute infarct. Atrophy and chronic white matter changes, as above.
[2022-08-05 23:39] VITALS: BP 224/96; PULSE 85; RESP 16; TEMP 36.6; O2SAT 93
--- NOTE | 2022-08-05 23:49 | ECG_ITS ---
Measurements Intervals [place] Rate: 73 P: -66 DC: 128 QRS: -11 QRSD: 114 T: 90 QT: 440 QTc: 487 Interpretive Statements SINUS RHYTHM WITH FREQUENT SUPRAVENTRICULAR PREMATURE COMPLEXES MODERATE INTRAVENTRICULAR CONDUCTION DELAY [110+ ms QRS DURATION] NONSPECIFIC ST & T-WAVE ABNORMALITY PROLONGED QT INTERVAL ABNORMAL ECG Electronically Signed On 08-06-2022 10:38:55 CDT by Ha Interiano M.D.
[2022-08-05 23:52] VITALS: O2SAT 91
[2022-08-05 23:53] VITALS: O2SAT 92
[2022-08-05 23:54] VITALS: PULSE 81; RESP 21; O2SAT 94
[2022-08-06] VITALS (22 sets, daily range): BP systolic 143–226; BP diastolic 56–88; PULSE 62–87; RESP 15–22; TEMP 35.9–36.3; O2SAT 91–98; BMI 36.8
--- NOTE | 2022-08-06 00:22 | ED.GENADULT ---
HPI - General Adult General Chief complaint: Chest Pain Stated complaint: sob Time Seen by Provider: 08/05/22 23:59 History of Present Illness HPI narrative: This is an 81-year-old male presenting to ED with chief complaint of chest pain. the patient was [facility]. He was then discharged from there to a longterm and when he arrived longterm he told them that He was having chest pain. At this time the patient is denying chest pain although says that he does have some R shoulder pain which is chrnoic. The patient is slightly confused. patient's is at bedside and said that he does have dementia but he seems more confused than normal and the moment. No other complaints. Related Data Home Medications Medication Instructions Recorded Confirmed cholecalciferol (vitamin D3) 50 50 mcg PO DAILY 10/24/19 07/30/22 mcg (2,000 unit) tablet omega-3 fatty acids 1,000 mg 1,000 mg PO BID 11/03/19 07/30/22 capsule (Fish Oil Concentrate) acetaminophen 500 mg tablet 500 mg PO Q6H PRN Pain (Scale 02/21/21 07/30/22 Score 1-3) magnesium oxide 400 mg PO BID 05/11/21 06/19/22 levalbuterol HCl 0.63 mg/3 mL 0.63 mg inhalation Q6H PRN 12/20/21 07/30/22 solution for nebulization Shortness Of Breath cephalexin 250 mg capsule 250 mg PO QHS 03/26/22 07/30/22 finasteride 5 mg tablet 5 mg PO DAILY 03/26/22 07/30/22 Allergies Allergy/AdvReac Type Severity Reaction Status Date / Time citalopram Allergy Mild Hives Verified 07/30/22 16:41 hydrochlorothiazide Allergy Mild Hives Verified 07/30/22 16:41 [facility] Past Medical History Medical History Abdominal mass Acute cystitis Adult BMI 37.0-37.9 kg/sq m Anxiety disorder, unspecified Benign prostatic hyperplasia (BPH) with straining on urination Benign prostatic hyperplasia with lower urinary tract symptoms Blister of toe BMI 36.0-36.9,adult BMI 38.0-38.9,adult BMI 40.0-44.9, adult BMI over 35 Bronchitis Cerebrovascular accident (CVA) Chest pain Chest pain CHF (congestive heart failure) Chronic bilateral low back pain with bilateral sciatica Chronic fatigue Chronic obstructive pulmonary disease CKD (chronic kidney disease), stage III Congestive heart failure last echo February of 2019 impaired diastolic relaxation grade 1 estimated ejection fraction of 50-55%. COPD (chronic obstructive pulmonary disease) Coronary artery disease (~2019) CVA (cerebral vascular accident) Dementia Diabetes with ulcer of toe Dyspnea Essential (primary) hypertension Excessive sputum Fatigue Gait instability Gout Gout Groin pain Hearing loss History of kidney stones Hordeolum of right eye Hyperlipidemia Hypertension Hypotension Mixed hyperlipidemia Morbid obesity Neuropathy Obstructive sleep apnea on CPAP GREG on CPAP Osteoarthritis of knees, bilateral Osteoporosis Peripheral arterial disease Peripheral vascular disease Pseudoaneurysm of artery of upper extremity Recurrent UTI Rib pain on left side Skin lump of arm Somnolence TMJ inflammation Type 2 diabetes mellitus Type 2 diabetes mellitus Urinary incontinence Vitamin D deficiency Weakness Wound, open, upper arm Surgical History Surgical History H/O cataract extraction H/O heart artery stent H/O hernia repair H/O inguinal hernia repair History of appendectomy History of bilateral knee replacement History of testicular surgery History of tonsillectomy History of tonsillectomy and adenoidectomy History of total knee replacement History of total left knee replacement History of total right knee replacement History of transurethral resection of prostate Hx of appendectomy Hx of laparoscopic gastric banding S/P TURP Status post cataract extraction of both eyes with insertion of intraocular lens Family History Family History (Reviewed 08/06/22 @ 00:28 by
[2022-08-06] MEDS: ACETAMINOPHEN 500 MG TABLET 1000 MG PO (00:31)
[2022-08-06 00:48] LABS: Basophils Absolute Auto 0.1 K/mm3 (0.0-0.1); Basophils Percent Auto 1.1 % (0.2-1.2); Eosinophils Absolute Auto 0.4 K/mm3 (0-0.3); Eosinophils Percent Auto 3.8 % (0-4.4); Hematocrit 38.4 % (42.0-52.0); Hemoglobin 12.6 g/dL (14.0-18.0); Immature Granulocyte Absolute 0.05 K/mm3 (0.00-0.031); Immature Granulocyte Percent A 0.4 % (0-0.5); Lymphocytes Absolute Auto 1.98 K/mm3 (0.9-3.2); Lymphocytes Percent Auto 17.4 % (18.3-44.2); Mean Corpuscular HGB Conc 32.8 g/dl (32-36); Mean Corpuscular Hemoglobin 32.1 pg (26-34); Mean Platelet Volume 11.6 fl (7.4-10.4); Monocytes Absolute Auto 0.8 K/mm3 (0.1-0.6); Monocytes Percent Auto 6.7 % (2.6-8.5); Neutrophils Absolute Auto 8.1 K/mm3 (1.3-6.7); Neutrophils Percent Auto 70.6 % (45.5-73.1); Platelet Count Result 260 k/mm3 (150-375); Red Blood Count 3.92 M/mm3 (4.6-6.20); Red Cell Distribution Width 13.7 % (11.5-14.5); White Blood Count 11.4 K/mm3 (4.5-10.0)
[2022-08-06 01:00] LABS: Lactic Acid Reflex 1.3 mmol/L (0.7-2.0)
[2022-08-06 01:02] LABS: Alanine Aminotransferase 12 U/L (6-50); Albumin Level 3.4 g/dL (3.5-5.1); Alkaline Phosphatase 70 U/L (38-126); Anion Gap 4 mmol/L (8-16); Aspartate Amino Transferase 25 U/L (17-59); Bilirubin,Total 0.7 mg/dL (0.2-1.3); Blood Urea Nitrogen 33 mg/dL (9-20); Calcium 8.8 mg/dL (8.4-10.2); Carbon Dioxide 30 mmol/L (22-30); Chloride 103 mmol/L (98-107); Creatine Kinase 50 U/L (55-170); Estimated CRCL calculation 35 ml/min; Estimated Glomerular Filt Rate 36; Glucose 111 mg/dL (65-110); Lipase 102 U/L (23-300); Magnesium 1.9 mg/dL (1.6-2.3); Potassium 4.1 mmol/L (3.4-5.0); Sodium 137 mmol/L (137-145)
[2022-08-06 01:22] LABS: NT Pro B Type Natriuretic Pept 3350 pg/mL (19.9-100); Troponin I 0.063 ng/mL (0.000-0.034)
[2022-08-06 01:24] LABS: Influenza A QL RT-PCR Negative (Negative); Influenza B QL RT-PCR Negative (Negative); RSV RNA, RT-PCR Negative (Negative); SARS-CoV-2 RNA PCR Negative (Negative)
[2022-08-06] MEDS: ASPIRIN 81 MG CHEWABLE TABLET 324 MG PO (01:27)
[2022-08-06 01:34] LABS: INR 1.1; Prothrombin Time 14.2 Seconds (11.1-14.7)
[2022-08-06 01:34] LABS: Appearance Urine Cloudy (Clear); Bacteria Urine None Seen /hpf; Bilirubin Urine Negative (Negative); Blood Urine 2+ (Negative); Color Urine Yellow (Yellow); Glucose Urine UA Negative (Negative); Ketones Urine 1+ mg/dL (Negative); Leukocyte Esterase Ur 1+ LEU/UL (Negative); Need Manual Microscopic Reviewed; Nitrate Urine Negative (Negative); Protein Urine 4+ mg/dL (Negative); Specific Grav Ur 1.024 (1.001-1.035); Squamous Epithelial Cell Urine None seen /hpf (Few); WBC Urine >100 /hpf; pH Urine 5.5 (5.0-9.0)
[2022-08-06 01:35] LABS: Add Urine Microscopic? YES
[2022-08-06 01:35] LABS: Partial Thromboplastin Time 33.6 SECONDS (22.3-36.8)
[2022-08-06] MEDS: PIPERACILLN/TAZ 3.375GM/NS50ML 3.375 GM/50 ML BAG IVPB (02:21)
--- NOTE | 2022-08-06 02:24 | PC.NURSE ---
Patient c/o pain, states he wants to speak to ERP. This nurse informed ERP of patients pain, VORB to give 0.5mg dilaudid IV.
[2022-08-06] MEDS: HYDROmorphone HCL INJ (*CRX) 1 MG/ML SYR 0.5 MG IV PUSH (02:29)
--- NOTE | 2022-08-06 04:07 | ADMGEN ---
This patient, Evan Paige, was admitted to IMU Room 205-02 at 0350 on 08/06/2022. Patient/family oriented to hospital policies and general routines including ID bracelet, bed and alarms, visiting hours, pain management, procedures, bathroom and other care routines, personal items, smoking policy, room service/diet, and visiting hours. Information on how to activate the Rapid Response Team has been discussed. Patient/Family are encouraged to report perceived risks to care and to ask questions if they do not understand what they are told or what they should do.
[2022-08-06 05:02] LABS: Troponin I 0.064 ng/mL (0.000-0.034)
--- NOTE | 2022-08-06 05:03 | ECG_ITS ---
Measurements Intervals [place] Rate: 73 P: -68 [place]: 127 QRS: -4 QRSD: 114 T: 56 QT: 463 QTc: 512 Interpretive Statements SINUS rHYTHM WITH FREQUENT SUPRAVENTRICULAR PREMATURE COMPLEXES LOW QRS VOLTAGE IN PRECORDIAL LEADS [QRS DEFLECTION < 1.0 mV IN CHEST LEADS] MODERATE INTRAVENTRICULAR CONDUCTION DELAY [110+ ms QRS DURATION] NONSPECIFIC ST & T-WAVE ABNORMALITY PROLONGED QT INTERVAL ABNORMAL ECG Electronically Signed On 08-06-2022 10:39:39 CDT by Ha Interiano M.D.
[2022-08-06] MEDS: LIDOCAINE 5% PATCH 1 PATCH TRANSDERM (06:37)
[2022-08-06 06:54] LABS: Troponin I 0.055 ng/mL (0.000-0.034)
[2022-08-06] MEDS: PIPERACILLIN/TAZ 2.25G/NS 50ML 2.25 GM/50 ML BAG IVPB (09:08)
--- NOTE | 2022-08-06 11:20 | PM.SD2 ---
Same Day Admit/Disch: HPI History of Present Illness Chief complaint: UTI, Elevated Trop Narrative: Evan Paige is a 81 year old male presenting to ED with chief complaint of chest pain.? the patient was recently transferred from our hospital to [facility] for possible subdural hemorrhage.? He was then discharged from there to a care home and when he arrived at care home he told them that he was having chest pain.? At this time the patient is denying chest pain although says that he does have some R shoulder pain which is chronic.? The patient is slightly confused. ?No other complaints. [facility] Past Medical History Medical History Abdominal mass Acute cystitis Adult BMI 37.0-37.9 kg/sq m Anxiety disorder, unspecified Benign prostatic hyperplasia (BPH) with straining on urination Benign prostatic hyperplasia with lower urinary tract symptoms Blister of toe BMI 36.0-36.9,adult BMI 38.0-38.9,adult BMI 40.0-44.9, adult BMI over 35 Bronchitis Cerebrovascular accident (CVA) Chest pain Chest pain CHF (congestive heart failure) Chronic bilateral low back pain with bilateral sciatica Chronic fatigue Chronic obstructive pulmonary disease CKD (chronic kidney disease), stage III Congestive heart failure last echo February of 2019 impaired diastolic relaxation grade 1 estimated ejection fraction of 50-55%. COPD (chronic obstructive pulmonary disease) Coronary artery disease (~2018) CVA (cerebral vascular accident) Dementia Diabetes with ulcer of toe Dyspnea Essential (primary) hypertension Excessive sputum Fatigue Gait instability Gout Gout Groin pain Hearing loss History of kidney stones Hordeolum of right eye Hyperlipidemia Hypertension Hypotension Mixed hyperlipidemia Morbid obesity Neuropathy Obstructive sleep apnea on CPAP GREG on CPAP Osteoarthritis of knees, bilateral Osteoporosis Peripheral arterial disease Peripheral vascular disease Pseudoaneurysm of artery of upper extremity Recurrent UTI Rib pain on left side Skin lump of arm Somnolence TMJ inflammation Type 2 diabetes mellitus Type 2 diabetes mellitus Urinary incontinence Vitamin D deficiency Weakness Wound, open, upper arm Surgical History Surgical History H/O cataract extraction H/O heart artery stent H/O hernia repair H/O inguinal hernia repair History of appendectomy History of bilateral knee replacement History of testicular surgery History of tonsillectomy History of tonsillectomy and adenoidectomy History of total knee replacement History of total left knee replacement History of total right knee replacement History of transurethral resection of prostate Hx of appendectomy Hx of laparoscopic gastric banding S/P TURP Status post cataract extraction of both eyes with insertion of intraocular lens Family History Family History Father Family history of diabetes mellitus in first degree relative Alzheimer's dementia Diabetes mellitus Grandparent Diabetes mellitus Mother Alzheimer's dementia Sibling No problems noted. Father Dementia Mother Dementia Social History Social History Social History: the patient is and lives in [place] [place] with his girish. She is the POA. patient stated that he is a full code. He has 3 children. 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 He smoked up to 3 packs of cigarettes a day and quit 1990s. No alcohol marijuana or illicit drugs. code status full code Smoking packs per day: 2 Smoking cigarettes per day: 40.0 Years smoked: 50 Smoking pack-years: 100.00 Smoking status: Former smoker Tobacco type: cigarettes Smokeless tobacco user: chewing tobacco Second hand tobacco smoke exposure: No Smoki
[2022-08-06] MEDS: carvediloL 6.25 MG TABLET PO (13:04)
--- NOTE | 2022-08-06 15:00 | PC.NURSE ---
Patient was admitted with elevated troponins and a UTI. The patient's troponins were trending down along with his BUN/creatinine being elevated as well. It seemed that the troponin level was elevated due to renal disease. The patient also noted that his chest pain had subsided. He did have right shoulder pain that was caused by a previous fall he had.
== END 2022-08-06 14:55 | DRG 690 ==
LOC: ANHED 08-06 02:18 → ANHIMU 08-06 03:02
PROVIDERS: Admitting Provider Internal Medicine; Emergency Provider Emergency Medicine; PCP Family Medicine; Visit Provider Hospitalist
DX: N39.0 Urinary tract infection, site not specified (principal); I13.0 Hypertensive heart and chronic kidney disease with heart failure and stage 1 through stage 4 chronic kidney disease, or unspecified chronic kidney disease; I50.32 Chronic diastolic (congestive) heart failure; E11.22 Type 2 diabetes mellitus with diabetic chronic kidney disease; N18.30 Chronic kidney disease, stage 3 unspecified; I50.9 Heart failure, unspecified; I25.10 Atherosclerotic heart disease of native coronary artery without angina pectoris; J44.9 Chronic obstructive pulmonary disease, unspecified; E78.5 Hyperlipidemia, unspecified; E11.40 Type 2 diabetes mellitus with diabetic neuropathy, unspecified; E11.51 Type 2 diabetes mellitus with diabetic peripheral angiopathy without gangrene; E55.9 Vitamin D deficiency, unspecified; M25.511 Pain in right shoulder; M81.0 Age-related osteoporosis without current pathological fracture; N40.1 Benign prostatic hyperplasia with lower urinary tract symptoms; R39.16 Straining to void; R77.8 Other specified abnormalities of plasma proteins; R07.9 Chest pain, unspecified; G47.33 Obstructive sleep apnea (adult) (pediatric); F41.9 Anxiety disorder, unspecified; F03.90 Unspecified dementia, unspecified severity, without behavioral disturbance, psychotic disturbance, mood disturbance, and anxiety; Z96.653 Presence of artificial knee joint, bilateral; Z20.822 Contact with and (suspected) exposure to COVID-19; Z87.891 Personal history of nicotine dependence; Z86.73 Personal history of transient ischemic attack (TIA), and cerebral infarction without residual deficits
CPT/HCPCS: 36415; 70450; 71046; 80053; 81001; 82550; 83605; 83690; 83735; 83880; 84484; 85025; 85610; 85730; 87040; 87086; 87637; 93005; 96365; 96375; 99285; A9270; J1170; J2543

== ENCOUNTER 2022-11-11 03:23 | Inpatient (IN) | payer MEDICARE, SELFPAY ==
[2022-11-11] VITALS (26 sets, daily range): BP systolic 133–230; BP diastolic 67–107; PULSE 77–95; RESP 12–20; TEMP 36.8–37.3; O2SAT 93–100; BMI 35.6; BMI 10.0
--- NOTE | ~2022-11-11 | US_ITS ---
EXAMINATION: US carotid duplex BI DATE: 11/13/2022 19:41 INDICATION: Cerebrovascular accident. TECHNIQUE: Grayscale, color Doppler, and pulsed Doppler images of the cervical carotid arteries were obtained. The degree of vessel stenosis is placed in one of the following categories: normal, <50%, 5 0-69%, >=70% but less than near-occlusion, near-occlusion, or total occlusion. Note that percent sten osis relative to normal distal artery lumen diameter is indirectly measured from velocity measurement s as described by [place], et al. Radiology 2003; 229:340-346. COMPARISON: Ultrasound 04/09/2018 FINDINGS: RIGHT: The right common carotid artery (CCA) peak systolic velocity (PSV) is 68 cm/s. The right internal car otid artery (ICA) PSV is 78 cm/s. The right ICA end-diastolic velocity (EDV) is 14 cm/s. The right IC A/CCA PSV ratio is 1.2. Grayscale and color Doppler images yield an estimate of <50% diameter reducti on from plaque in the ICA. There is antegrade flow in the right vertebral artery. LEFT: The left CCA PSV is 131 cm/s. The left ICA PSV is 113 cm/s. The left ICA EDV is 25 cm/s. The left ICA /CCA PSV ratio is 0.9. Grayscale and color Doppler images yield an estimate of <50% diameter reductio n from plaque in the ICA. There is antegrade flow in the left vertebral artery. IMPRESSION: 1. <50% stenosis in the right internal carotid artery. 2. <50% stenosis in the left internal carotid artery. Reviewed, dictated and finalized at location E.
--- NOTE | ~2022-11-11 | CT_ITS ---
EXAMINATION: CT brain wo con DATE: 11/14/2022 12:44 INDICATION: Left-sided hemiparesis TECHNIQUE: Computed tomography (CT) of the head was performed without intravenous contrast. Sagittal and coronal reconstructions were performed. The mA was adjusted according to patient size. Iterative reconstruction technique was employed. The dose-length product was 681.00 mGy-cm. COMPARISON: head CT dated 11/11/2022 FINDINGS: Moderate-sized region of cytotoxic edema with loss of sanabria-white matter differentiation and effacemen t of the sulci in the right frontal temporoparietal region including the posterior insula which is ne w since the prior study consistent with acute infarct. Additional small old infarct in the left basal ganglia. No acute intracranial hemorrhage or abnormal extra axial fluid collection. There is moderat e scattered white matter hypoattenuation consistent with chronic small vessel ischemic disease. Symme tric prominence of the sulci consistent with mild age-appropriate diffuse cerebral volume loss. Ventr icles are normal and symmetric. No masses identified. Changes of bilateral intraocular lens replaceme nt. The orbits, paranasal sinuses and mastoid air cells are normal. Intracranial calcified cerebral a therosclerosis is noted. IMPRESSION: 1. Moderate-sized acute to early subacute infarction in the right frontotemporoparietal region. No ac arnold intracranial hemorrhage. 2. Small old infarct in the left basal ganglia. 3. Age-related changes including mild diffuse on loss and moderate scattered white matter hypoattenua tion consistent with chronic small vessel ischemic disease. Reviewed, dictated and finalized at location A. IMPRESSION: 1. Moderate-sized acute to early subacute infarction in the right frontotemporo parietal region. No acute intracranial hemorrhage. 2. Small old infarct in the left basal ganglia. 3. Age-related changes including mild diffuse on loss and moderate scattered wh ite matter hypoattenuation consistent with chronic small vessel ischemic diseas e.
--- NOTE | ~2022-11-11 | XR_ITS ---
EXAMINATION: XR chest 1V portable INDICATION: Hypoxia TECHNIQUE: Portable AP chest at 0452 hours COMPARISON: 08/06/2022 FINDINGS: There are minimal airspace opacities of the left lung base. No pleural effusion or pneumoth orax. The cardiomediastinal silhouette is normal. There is moderate osteoarthritis of the shoulders. IMPRESSION: 1. Minimal left basilar airspace opacity, consistent with atelectasis versus pneumonia. Reviewed, dictated and finalized at location F. IMPRESSION: 1. Minimal left basilar airspace opacity, consistent with atelectasis versus pn eumonia.
--- NOTE | ~2022-11-11 | CT_ITS ---
EXAMINATION: CT brain wo con INDICATION: Altered mental status COMPARISON: 08/06/2022 TECHNIQUE: Standard unenhanced head CT. The dose-length product (DLP) was 681.00 mGy-cm. The mA was a djusted according to patient size. Iterative reconstruction technique was employed. FINDINGS: No acute intraparenchymal hemorrhage. No evidence of mass lesion. No evidence of acute infa rction. There are old infarcts of the basal ganglia. There is mild periventricular and subcortical hy podensity probably related to small vessel ischemic disease. There is mild prominence of the sulci an d ventricles related to cerebral atrophy. Intracranial calcified cerebral atherosclerosis is noted. N o extra-axial collections. No mass effect or midline shift. Changes in the globes are likely from ocu lar lens surgery. There is mild mucosal thickening of the paranasal sinuses. IMPRESSION: 1. No acute intracranial abnormality. 2. Age related findings. Reviewed, dictated and finalized at location F.
--- NOTE | 2022-11-11 03:45 | ECG_ITS ---
Measurements Intervals [place] Rate: 81 P: 259 IN: 105 QRS: -30 QRSD: 106 T: -3 QT: 406 QTc: 474 Interpretive Statements SINUS RHYTHM WITH PACS POOR R-WAVE PROGRESSION NONSPECIFIC T-WAVE FLATTENING ABNORMAL RHYTHM ECG COMPARED TO ECG 08/06/2022 05:11:05 NO SIGNIFICANT DIFFERENCE Electronically Signed On 11-11-2022 9:29:16 CDT by Walt Demarco M.D.
[2022-11-11 04:13] LABS: Basophils Absolute Auto 0.1 K/mm3 (0.0-0.1); Eosinophils Absolute Auto 0.3 K/mm3 (0-0.3); Eosinophils Percent Auto 2.3 % (0-4.4); Hemoglobin 12.5 g/dL (14.0-18.0); Immature Granulocyte Absolute 0.03 K/mm3 (0.00-0.031); Immature Granulocyte Percent A 0.3 % (0-0.5); Lymphocytes Absolute Auto 1.93 K/mm3 (0.9-3.2); Lymphocytes Percent Auto 17.2 % (18.3-44.2); Mean Corpuscular HGB Conc 32.9 g/dl (32-36); Mean Corpuscular Hemoglobin 32.1 pg (26-34); Mean Corpuscular Volume 97.7 fl (80-100); Mean Platelet Volume 10.9 fl (7.4-10.4); Monocytes Absolute Auto 0.6 K/mm3 (0.1-0.6); Monocytes Percent Auto 5.5 % (2.6-8.5); Neutrophils Absolute Auto 8.3 K/mm3 (1.3-6.7); Neutrophils Percent Auto 73.7 % (45.5-73.1); Platelet Count Result 212 k/mm3 (150-375); Red Blood Count 3.89 M/mm3 (4.6-6.20); Red Cell Distribution Width 13.6 % (11.5-14.5); White Blood Count 11.2 K/mm3 (4.5-10.0)
[2022-11-11 04:36] LABS: Acetaminophen < 10 ug/mL (10-30); Ethanol < 10 mg/dL (<10); Salicylate < 1.0 mg/dL (2-20)
[2022-11-11 04:37] LABS: Alanine Aminotransferase 11 U/L (6-50); Albumin Level 3.4 g/dL (3.5-5.1); Alkaline Phosphatase 61 U/L (38-126); Anion Gap 7 mmol/L (8-16); Aspartate Amino Transferase 17 U/L (17-59); Bilirubin,Total 0.9 mg/dL (0.2-1.3); Blood Urea Nitrogen 30 mg/dL (9-20); Calcium 9.2 mg/dL (8.4-10.2); Carbon Dioxide 30 mmol/L (22-30); Chloride 99 mmol/L (98-107); Estimated CRCL calculation 27 ml/min; Estimated Glomerular Filt Rate 26; Glucose 131 mg/dL (65-110); Potassium 4.2 mmol/L (3.4-5.0); Sodium 136 mmol/L (137-145)
[2022-11-11 05:43] LABS: Amphetamine Screen Urine Negative (Negative); Barbiturate Screen Urine Negative (Negative); Benzodiazepines Screen Urine Negative (Negative); Cannabinoid Screen Urine Negative (Negative); Cocaine Screen Urine Negative (Negative); Methadone Screen Urine Negative (Negative); Opiate Screen Urine Positive (Negative); Phencyclidine Screen Urine Negative (Negative)
[2022-11-11 05:44] LABS: Appearance Urine Cloudy (Clear); Bacteria Urine None Seen /hpf; Bilirubin Urine Negative (Negative); Blood Urine 1+ (Negative); Color Urine Yellow (Yellow); Glucose Urine UA Negative (Negative); Hyaline Casts Urine Present /lpf; Ketones Urine 1+ mg/dL (Negative); Leukocyte Esterase Ur Negative LEU/UL (Negative); Nitrate Urine Negative (Negative); Protein Urine 4+ mg/dL (Negative); Squamous Epithelial Cell Urine None seen /hpf (Few); pH Urine 7.5 (5.0-9.0)
[2022-11-11 05:45] LABS: Add Urine Microscopic? YES
--- NOTE | 2022-11-11 05:52 | ED.WEAKNESS ---
HPI - Weakness General Chief complaint: Weakness Stated complaint: FALL OUT OF BED, WEAKNESS History of Present Illness HPI Narrative: This is an 81-year-old male, with past history of A-fib on full dose aspirin, COPD and hyperlipidemia, brought in by EMS for a fall from home and generalized weakness. EMS reports they were called by the patient's who found the patient on the ground. It is unclear if the patient hit his head though he denies loss of consciousness. EMS reports the patient's vital signs were within normal limits with a fingerstick glucose of 143. The patient denies chest pain, shortness of breath or pain in any location. Related Data Home Medications Medication Instructions Recorded Confirmed acetaminophen 500 mg tablet 500 mg PO Q6H PRN Pain (Scale 02/21/21 10/22/22 Score 1-3) finasteride 5 mg tablet 5 mg PO QHS 03/26/22 10/22/22 carvedilol 6.25 mg tablet 6.25 mg PO Q12H 08/06/22 10/22/22 ergocalciferol (vitamin D2) 1,250 1,250 mcg PO WEEKLY 09/10/22 10/22/22 mcg (50,000 unit) capsule guaifenesin 600 mg tablet, 600 mg PO BID 09/10/22 10/22/22 extended release 12 hr (Mucinex) ipratropium 0.5 mg-albuterol 3 mg 3 ml inhalation TID PRN 09/10/22 10/22/22 (2.5 mg base)/3 mL nebulization soln naloxegol 25 mg tablet (Movantik) 25 mg PO QAM 09/10/22 10/22/22 ondansetron 4 mg disintegrating 4 mg PO .as needed 09/10/22 10/22/22 tablet pregabalin 75 mg capsule (Lyrica) 75 mg PO TID 09/10/22 10/22/22 aspirin 325 mg tablet,delayed 325 mg PO DAILY 10/22/22 10/22/22 release Allergies Allergy/AdvReac Type Severity Reaction Status Date / Time citalopram Allergy Mild Hives Verified 10/22/22 08:27 hydrochlorothiazide Allergy Mild Hives Verified 10/22/22 08:27 triamterene-hydrochlorothiazide Allergy Other Uncoded 10/22/22 08:27 Review of Systems Review of Systems: CONSTITUTIONAL: Denies fever, chills, or sweats. CARDIOVASCULAR: Denies chest pain, palpitations, or edema. RESPIRATORY: Denies cough or dyspnea. GASTROINTESTINAL: Denies abdominal pain, nausea, vomiting, or diarrhea. GENITOURINARY: Denies dysuria or hematuria. SKIN: Abrasion of the left knee. Denies rash or itching. MUSCULOSKELETAL: Denies back pain, joint pain, or myalgia. NEUROLOGIC: Denies headache, numbness, dizziness, or weakness. PSYCHIATRIC: Denies anxiety or depression. [facility] Past Medical History Medical History Abdominal mass Acute cystitis Adult BMI 37.0-37.9 kg/sq m Anxiety disorder, unspecified Atrial fibrillation Benign prostatic hyperplasia (BPH) with straining on urination Benign prostatic hyperplasia with lower urinary tract symptoms Blister of toe BMI 36.0-36.9,adult BMI 38.0-38.9,adult BMI 40.0-44.9, adult BMI over 35 Bronchitis Cerebrovascular accident (CVA) Chest pain Chest pain CHF (congestive heart failure) Chronic bilateral low back pain with bilateral sciatica Chronic fatigue Chronic obstructive pulmonary disease CKD (chronic kidney disease), stage III Congestive heart failure last echo February of 2019 impaired diastolic relaxation grade 1 estimated ejection fraction of 50-55%. COPD (chronic obstructive pulmonary disease) Coronary artery disease (~2019) CVA (cerebral vascular accident) Dementia Diabetes with ulcer of toe Dyspnea Essential (primary) hypertension Excessive sputum Fatigue Gait instability Gout Gout Groin pain Hearing loss History of kidney stones Hordeolum of right eye Hyperlipidemia Hypertension Hypotension Leg pain, bilateral Mixed hyperlipidemia Morbid obesity Neuropathy Obstructive sleep apnea on CPAP GREG on CPAP Osteoarthritis of knees, bilateral Osteoporosis Peripheral arterial disease Peripheral vascular disease Pseudoaneurysm of artery of upper extremity Recurrent UTI Rib pain on left side Skin lump of arm Somnolence TMJ inflammation Type 2 diabetes mellitus Type 2 diabetes mellitus Urinary incontinence
[2022-11-11 08:50] LABS: Troponin I 0.037 ng/mL (0.000-0.034)
--- NOTE | 2022-11-11 09:30 | ADMGEN ---
This patient, Evan Paige, was admitted to IMU Room 231-01. Patient/family oriented to hospital policies and general routines including ID bracelet, bed and alarms, visiting hours, pain management, procedures, bathroom and other care routines, personal items, smoking policy, room service/diet, and visiting hours. Information on how to activate the Rapid Response Team has been discussed. Patient/Family are encouraged to report perceived risks to care and to ask questions if they do not understand what they are told or what they should do.
--- NOTE | 2022-11-11 11:16 | PM.IMHP ---
H&P: HPI History of Present Illness Date/Time: 11/11/22 11:16 Chief Complaint: This is an 81-year-old male with past medical history of AFib on low-dose aspirin, COPD, hyperlipidemia, GREG, diabetes with peripheral neuropathy, CAD, chronic renal failure and dementia that presents to the ED on 11/11/2022 due to falling/sliding out of bed at home. Patient states that he was attempting to get out of bed and while doing this he ended up sliding out of bed. He is not unsure how this happened although he does have history of peripheral neuropathy and both his hands and feet so he is unable to grab onto anything very well. He denies losing consciousness, dizziness, lightheadedness or hitting his head in the process. Head CT revealed no acute intracranial abnormality. Chest x-ray showing atelectasis versus pneumonia although patient does not have any signs or symptoms of pneumonia. Will hold off on treatment at this time. He was found to have a BUN and creatinine of 30/2.4. He does see Dr. Traore in the office and it appears that over the past year or so his creatinine has been between 2.2 to 3.5 patient admitted due to acute on chronic renal failure as well as a fall. Will order PT and OT to evaluate the patient. Start IV fluids. [facility] Past Medical History Medical History Abdominal mass Acute cystitis Adult BMI 37.0-37.9 kg/sq m Anxiety disorder, unspecified Atrial fibrillation Benign prostatic hyperplasia (BPH) with straining on urination Benign prostatic hyperplasia with lower urinary tract symptoms Blister of toe BMI 36.0-36.9,adult BMI 38.0-38.9,adult BMI 40.0-44.9, adult BMI over 35 Bronchitis Cerebrovascular accident (CVA) Chest pain Chest pain CHF (congestive heart failure) Chronic bilateral low back pain with bilateral sciatica Chronic fatigue Chronic obstructive pulmonary disease CKD (chronic kidney disease), stage III Congestive heart failure last echo February of 2019 impaired diastolic relaxation grade 1 estimated ejection fraction of 50-55%. COPD (chronic obstructive pulmonary disease) Coronary artery disease (~2019) CVA (cerebral vascular accident) Dementia Diabetes with ulcer of toe Dyspnea Essential (primary) hypertension Excessive sputum Fatigue Gait instability Gout Gout Groin pain Hearing loss History of kidney stones Hordeolum of right eye Hyperlipidemia Hypertension Hypotension Leg pain, bilateral Mixed hyperlipidemia Morbid obesity Neuropathy Obstructive sleep apnea on CPAP GREG on CPAP Osteoarthritis of knees, bilateral Osteoporosis Peripheral arterial disease Peripheral vascular disease Pseudoaneurysm of artery of upper extremity Recurrent UTI Rib pain on left side Skin lump of arm Somnolence TMJ inflammation Type 2 diabetes mellitus Type 2 diabetes mellitus Urinary incontinence Vitamin D deficiency Weakness Wound, open, upper arm Surgical History Surgical History H/O cataract extraction H/O heart artery stent H/O hernia repair H/O inguinal hernia repair History of appendectomy History of bilateral knee replacement History of testicular surgery History of tonsillectomy History of tonsillectomy and adenoidectomy History of total knee replacement History of total left knee replacement History of total right knee replacement History of transurethral resection of prostate Hx of appendectomy Hx of laparoscopic gastric banding S/P TURP Status post cataract extraction of both eyes with insertion of intraocular lens Family History Family History Father Family history of diabetes mellitus in first degree relative Alzheimer's dementia Diabetes mellitus Dementia Grandparent Diabetes mellitus Mother Alzheimer's dementia Sibling No problems noted. Social History Social History (Revie
[2022-11-11 11:33] LABS: Troponin I 0.033 ng/mL (0.000-0.034)
[2022-11-11] MEDS: ASPIRIN 81 MG ENTERIC TABLET PO (12:34)
[2022-11-11] MEDS: PREGABALIN (*CRX) 50 MG CAPSULE PO ×2 (12:34→20:12)
[2022-11-11] MEDS: CHOLECALCIFEROL 1,000 UNITS TABLET 2000 UNITS PO (12:34)
[2022-11-11] MEDS: carvediloL 6.25 MG TABLET PO ×2 (12:35→20:12)
[2022-11-11] MEDS: TOLNAFTATE 1% POWDER 45 GM BTL 1 APPLIC TOPICAL ×2 (12:35→20:20)
[2022-11-11] MEDS: HYDROcodone/acetaminophen (*CRX) 5-325 MG TABLET 1 TAB PO (16:02)
[2022-11-11] MEDS: SODIUM CHLORIDE 0.9% IV 1,000 ML 100 ML IV CONT (16:21)
[2022-11-11 16:31] LABS: Glucose Point of Care 120 mg/dl (65-105)
[2022-11-11] MEDS: FINASTERIDE 5 MG TABLET PO (20:12)
[2022-11-11] MEDS: guaiFENesin 12 HR 600 MG TABCR PO (20:12)
[2022-11-11] MEDS: MEMANTINE 10 MG TABLET PO (20:12)
[2022-11-11 20:51] LABS: Glucose Point of Care 123 mg/dl (65-105)
[2022-11-12] VITALS (15 sets, daily range): BP systolic 111–189; BP diastolic 59–91; PULSE 73–85; RESP 16–25; TEMP 36.5–37.1; O2SAT 78–100
[2022-11-12 04:36] LABS: Basophils Absolute Auto 0.1 K/mm3 (0.0-0.1); Basophils Percent Auto 0.8 % (0.2-1.2); Eosinophils Absolute Auto 0.2 K/mm3 (0-0.3); Eosinophils Percent Auto 1.8 % (0-4.4); Hemoglobin 11.7 g/dL (14.0-18.0); Immature Granulocyte Absolute 0.03 K/mm3 (0.00-0.031); Immature Granulocyte Percent A 0.2 % (0-0.5); Lymphocytes Absolute Auto 2.46 K/mm3 (0.9-3.2); Lymphocytes Percent Auto 20.2 % (18.3-44.2); Mean Corpuscular HGB Conc 32.5 g/dl (32-36); Mean Corpuscular Hemoglobin 32.2 pg (26-34); Mean Corpuscular Volume 99.2 fl (80-100); Mean Platelet Volume 10.8 fl (7.4-10.4); Monocytes Absolute Auto 0.8 K/mm3 (0.1-0.6); Monocytes Percent Auto 6.8 % (2.6-8.5); Neutrophils Absolute Auto 8.5 K/mm3 (1.3-6.7); Neutrophils Percent Auto 70.2 % (45.5-73.1); Platelet Count Result 177 k/mm3 (150-375); Red Blood Count 3.63 M/mm3 (4.6-6.20); Red Cell Distribution Width 13.3 % (11.5-14.5); White Blood Count 12.2 K/mm3 (4.5-10.0)
[2022-11-12 05:03] LABS: Anion Gap 4 mmol/L (8-16); Blood Urea Nitrogen 29 mg/dL (9-20); Calcium 8.1 mg/dL (8.4-10.2); Carbon Dioxide 28 mmol/L (22-30); Chloride 102 mmol/L (98-107); Estimated CRCL calculation 27 ml/min; Estimated Glomerular Filt Rate 27; Glucose 101 mg/dL (65-110); Potassium 4.2 mmol/L (3.4-5.0); Sodium 134 mmol/L (137-145)
[2022-11-12] MEDS: SODIUM CHLORIDE 0.9% IV 1,000 ML 100 ML IV CONT ×2 (06:04→11:55)
[2022-11-12] MEDS: ASPIRIN 81 MG ENTERIC TABLET PO (09:11)
[2022-11-12] MEDS: TOLNAFTATE 1% POWDER 45 GM BTL 1 APPLIC TOPICAL ×2 (09:12→20:59)
[2022-11-12] MEDS: carvediloL 6.25 MG TABLET PO ×2 (09:12→20:55)
[2022-11-12] MEDS: PREGABALIN (*CRX) 50 MG CAPSULE PO ×2 (09:12→20:55)
[2022-11-12] MEDS: CHOLECALCIFEROL 1,000 UNITS TABLET 2000 UNITS PO (09:12)
[2022-11-12] MEDS: guaiFENesin 12 HR 600 MG TABCR PO ×2 (09:12→20:55)
[2022-11-12] MEDS: GLIMEPIRIDE 1 MG TABLET PO (09:12)
[2022-11-12 09:30] LABS: Glucose Point of Care 103 mg/dl (65-105)
--- NOTE | 2022-11-12 10:45 | PC.NURSE ---
Pt refused bedside swallow evaluation. said patient had one previously and patient was recommended honey thick liquids and signed a waiver while in [facility].
--- NOTE | 2022-11-12 11:15 | PCPTNOTE ---
Attempted to see patient for PT, however patient unable to wake up enough to participate with PT. Patient's spouse in room attempted to wake up patient as well.
--- NOTE | 2022-11-12 12:18 | PM.IMPN ---
Progress Note: A&P Assessment and Plan (1) Renal failure (ARF), acute on chronic: Qualifiers: Acute renal failure type: unspecified Chronic kidney disease stage: stage 3 (moderate) Chronic kidney disease stage 3 subtype: unspecified whether 3a or 3b Qualified Code(s): N17.9 - Acute kidney failure, unspecified; N18.30 - Chronic kidney disease, stage 3 unspecified Code(s): N17.9 - Acute kidney failure, unspecified; N18.9 - Chronic kidney disease, unspecified Status: Acute Assessment and Plan: BUN and creatinine on admission 30/2.4. This appears to be close to patient's baseline Initiate IV fluids. Monitor a.m. labs. Consider consult to Nephrology if creatinine worsens. (2) Elevated troponin: Code(s): R77.8 - Other specified abnormalities of plasma proteins Status: Acute Assessment and Plan: On admission patient's troponin was 0.055. Troponins trended down to 0.040 and 0.033. Elevated troponin likely due to the kidney failure. EKG with normal sinus rhythm and PACs. No need for cardio consult at this time. (3) PAF (paroxysmal atrial fibrillation): Code(s): I48.0 - Paroxysmal atrial fibrillation Status: Chronic Assessment and Plan: Patient with history of paroxysmal AFib. Continue home aspirin. (4) Benign hypertension with chronic kidney disease: Code(s): I12.9 - Hypertensive chronic kidney disease with stage 1 through stage 4 chronic kidney disease, or unspecified chronic kidney disease Status: Chronic Assessment and Plan: Continue home medication. (5) Dementia: Code(s): F03.90 - Unspecified dementia, unspecified severity, without behavioral disturbance, psychotic disturbance, mood disturbance, and anxiety Status: Chronic Assessment and Plan: Patient on memantine. Continue. (6) Obstructive sleep apnea on CPAP: Code(s): G47.33 - Obstructive sleep apnea (adult) (pediatric); Z99.89 - Dependence on other enabling machines and devices Status: Acute Assessment and Plan: Will order CPAP for the patient. He uses CPAP at night and while napping during the day. (7) Numbness and tingling of upper and lower extremities of both sides: Code(s): R20.0 - Anesthesia of skin; R20.2 - Paresthesia of skin Status: Acute Assessment and Plan: Patient with history of numbness and tingling of the bilateral upper and lower extremities. Likely cause of patient's fall out of bed. Continue Lyrica PT and OT ordered. 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 use Diabetes mellitus complication status: with neurologic complications Diabetes mellitus complication detail: with polyneuropathy Qualified Code(s): E11.42 - Type 2 diabetes mellitus with diabetic polyneuropathy Code(s): E11.9 - Type 2 diabetes mellitus without complications Status: Acute Assessment and Plan: Insulin Lispro sliding scale, Accu-checks qAc and HS and Continue oral hypoglycemics Initiate hypoglycemic precautions (9) Fall from ground level: Code(s): W18.30XA - Fall on same level, unspecified, initial encounter Status: Inactive Assessment and Plan: patient had ground level fall on 11/11/2022. X-rays negative for acute fracture. History of bilateral upper and lower extremity neuropathy likely contributing to patient's fall. PT and OT consulted. Waiting on placement for the patient Subjective Date/time seen: 11/12/22 12:18 Interval history: Patient doing well today. Patient's stated that she would like placement for him. Spoke with rn medicare and she is going to try and set a facility that the patient be discharged to. Patient has been stable. He has no new complaints at this time. Exam Narrative:
[2022-11-12 12:21] LABS: Glucose Point of Care 116 mg/dl (65-105)
--- NOTE | 2022-11-12 12:24 | PC.NURSE ---
This patient, Evan Paige, was transferred to [3rd Med Surg ] on 11/12/22 at 1145. Personal belongings sent with patient. Report given to [KEELY Rodriguez ]. Appropriate documentation sent with patient. Vitals stable and patient alert and oriented to person, place, and time. Patient does have intermittent confusion. Last blood glucose checked was 103.
[2022-11-12] MEDS: hydrALAZINE HCL 20 MG/ML VIAL 10 MG IV PUSH (12:26)
--- NOTE | 2022-11-12 14:20 | PCOTNOTE ---
Attempted to see Patient for P.M. treatment session. Patient refused to perform any activities for OT treatment session due to have performing PT earlier.
[2022-11-12 17:11] LABS: Glucose Point of Care 98 mg/dl (65-105)
[2022-11-12] MEDS: HYDROcodone/acetaminophen (*CRX) 5-325 MG TABLET 1 TAB PO ×2 (18:22→20:56)
[2022-11-12] MEDS: MEMANTINE 10 MG TABLET PO (20:56)
[2022-11-12] MEDS: FINASTERIDE 5 MG TABLET PO (20:56)
[2022-11-12 21:05] LABS: Glucose Point of Care 107 mg/dl (65-105)
[2022-11-13] VITALS (8 sets, daily range): BP systolic 180–198; BP diastolic 55–69; PULSE 66–77; RESP 15–19; TEMP 35.6–35.9; O2SAT 95–96; BMI 10.0; BMI 35.6
[2022-11-13] MEDS: SODIUM CHLORIDE 0.9% IV 1,000 ML 75 ML IV CONT (01:06)
[2022-11-13] MEDS: HYDROcodone/acetaminophen (*CRX) 5-325 MG TABLET 1 TAB PO (05:34)
[2022-11-13] MEDS: hydrALAZINE HCL 20 MG/ML VIAL 10 MG IV PUSH ×2 (05:34→21:00)
--- NOTE | 2022-11-13 06:15 | PC.NURSE ---
pt place on 2l nc c/o sob this am.
[2022-11-13 07:19] LABS: Hematocrit 35.4 % (42.0-52.0); Hemoglobin 11.5 g/dL (14.0-18.0); Mean Corpuscular HGB Conc 32.5 g/dl (32-36); Mean Corpuscular Volume 98.6 fl (80-100); Mean Platelet Volume 10.7 fl (7.4-10.4); Platelet Count Result 163 k/mm3 (150-375); Red Blood Count 3.59 M/mm3 (4.6-6.20); Red Cell Distribution Width 13.4 % (11.5-14.5); White Blood Count 11.7 K/mm3 (4.5-10.0)
[2022-11-13 07:31] LABS: Alanine Aminotransferase 9 U/L (6-50); Albumin Level 2.9 g/dL (3.5-5.1); Alkaline Phosphatase 52 U/L (38-126); Anion Gap 6 mmol/L (8-16); Aspartate Amino Transferase 17 U/L (17-59); Bilirubin,Total 0.7 mg/dL (0.2-1.3); Blood Urea Nitrogen 27 mg/dL (9-20); CRP 1.6 mg/dL (<1.0); Carbon Dioxide 24 mmol/L (22-30); Chloride 105 mmol/L (98-107); Estimated CRCL calculation 31 ml/min; Estimated Glomerular Filt Rate 32; Glucose 98 mg/dL (65-110); Potassium 3.5 mmol/L (3.4-5.0); Sodium 135 mmol/L (137-145)
[2022-11-13 08:29] LABS: Glucose Point of Care 97 mg/dl (65-105)
[2022-11-13 08:43] LABS: Procalcitonin 0.1 ng/mL
[2022-11-13] MEDS: guaiFENesin 12 HR 600 MG TABCR PO ×2 (09:53→20:49)
[2022-11-13] MEDS: TOLNAFTATE 1% POWDER 45 GM BTL 1 APPLIC TOPICAL ×2 (09:53→22:20)
[2022-11-13] MEDS: carvediloL 6.25 MG TABLET PO ×2 (09:53→20:49)
[2022-11-13] MEDS: CHOLECALCIFEROL 1,000 UNITS TABLET 2000 UNITS PO (09:53)
[2022-11-13] MEDS: amLODIPine BESYLATE 5 MG TABLET PO (09:53)
[2022-11-13] MEDS: PREGABALIN (*CRX) 50 MG CAPSULE PO ×2 (09:53→20:49)
[2022-11-13] MEDS: GLIMEPIRIDE 1 MG TABLET PO (09:53)
[2022-11-13] MEDS: ASPIRIN 81 MG ENTERIC TABLET PO (09:53)
[2022-11-13 11:43] LABS: Glucose Point of Care 107 mg/dl (65-105)
--- NOTE | 2022-11-13 15:31 | PM.IMPN ---
Progress Note: A&P Assessment and Plan (1) Renal failure (ARF), acute on chronic: Qualifiers: Acute renal failure type: unspecified Chronic kidney disease stage: stage 3 (moderate) Chronic kidney disease stage 3 subtype: unspecified whether 3a or 3b Qualified Code(s): N17.9 - Acute kidney failure, unspecified; N18.30 - Chronic kidney disease, stage 3 unspecified Code(s): N17.9 - Acute kidney failure, unspecified; N18.9 - Chronic kidney disease, unspecified Status: Acute Assessment and Plan: BUN and creatinine on admission 30/2.4. This appears to be close to patient's baseline Initiate IV fluids. Monitor a.m. labs. BUN and creatinine improving with IV fluids. (2) Elevated troponin: Code(s): R77.8 - Other specified abnormalities of plasma proteins Status: Acute Assessment and Plan: On admission patient's troponin was 0.055. Troponins trended down to 0.040 and 0.033. Elevated troponin likely due to the kidney failure. EKG with normal sinus rhythm and PACs. No need for cardio consult at this time. (3) PAF (paroxysmal atrial fibrillation): Code(s): I48.0 - Paroxysmal atrial fibrillation Status: Chronic Assessment and Plan: Patient with history of paroxysmal AFib. Continue home aspirin. (4) Benign hypertension with chronic kidney disease: Code(s): I12.9 - Hypertensive chronic kidney disease with stage 1 through stage 4 chronic kidney disease, or unspecified chronic kidney disease Status: Chronic Assessment and Plan: Continue home medication. (5) Dementia: Code(s): F03.90 - Unspecified dementia, unspecified severity, without behavioral disturbance, psychotic disturbance, mood disturbance, and anxiety Status: Chronic Assessment and Plan: Patient on memantine. Continue. (6) Obstructive sleep apnea on CPAP: Code(s): G47.33 - Obstructive sleep apnea (adult) (pediatric); Z99.89 - Dependence on other enabling machines and devices Status: Acute Assessment and Plan: Will order CPAP for the patient. He uses CPAP at night and while napping during the day. (7) Numbness and tingling of upper and lower extremities of both sides: Code(s): R20.0 - Anesthesia of skin; R20.2 - Paresthesia of skin Status: Acute Assessment and Plan: Patient with history of numbness and tingling of the bilateral upper and lower extremities. Likely cause of patient's fall out of bed. Continue Lyrica PT and OT ordered. (8) Type 2 diabetes mellitus: Qualifiers: Diabetes mellitus buttermaker continuous churn insulin use: without buttermaker continuous churn use Diabetes mellitus complication status: with neurologic complications Diabetes mellitus complication detail: with polyneuropathy Qualified Code(s): E11.42 - Type 2 diabetes mellitus with diabetic polyneuropathy Code(s): E11.9 - Type 2 diabetes mellitus without complications Status: Acute Assessment and Plan: Insulin Lispro sliding scale, Accu-checks qAc and HS and Continue oral hypoglycemics Initiate hypoglycemic precautions (9) Fall from ground level: Code(s): W18.30XA - Fall on same level, unspecified, initial encounter Status: Inactive Assessment and Plan: patient had ground level fall on 11/11/2022. X-rays negative for acute fracture. History of bilateral upper and lower extremity neuropathy likely contributing to patient's fall. PT and OT consulted. Waiting on placement for the patient (10) Dysuria: Code(s): R30.0 - Dysuria Status: Acute Assessment and Plan: UA ordered (11) Left arm weakness: Code(s): R29.898 - Other symptoms and signs involving the musculoskeletal system Status: Acute Assessment and Plan: Neurology consulted. MRI of the brain ordered. CT of the head from 2 days ago with
[2022-11-13 17:13] LABS: Glucose Point of Care 85 mg/dl (65-105)
[2022-11-13 18:55] LABS: Appearance Urine Clear (Clear); Bacteria Urine None Seen /hpf; Bilirubin Urine Negative (Negative); Blood Urine Negative (Negative); Color Urine Yellow (Yellow); Glucose Urine UA Negative (Negative); Hyaline Casts Urine Present /lpf; Ketones Urine 1+ mg/dL (Negative); Leukocyte Esterase Ur Negative LEU/UL (Negative); Nitrate Urine Negative (Negative); Protein Urine 3+ mg/dL (Negative); RBC Urine 0-2 /hpf (0-2); Specific Grav Ur 1.022 (1.001-1.035); Squamous Epithelial Cell Urine None seen /hpf (Few); Urobilinogen Urine 0.2 mg/dL (<2.0); WBC Clumps Urine Present /HPF; WBC Urine 0-5 /hpf; pH Urine 5.5 (5.0-9.0)
[2022-11-13 19:26] LABS: Add Urine Microscopic? YES
[2022-11-13] MEDS: MEMANTINE 10 MG TABLET PO (20:49)
[2022-11-13] MEDS: FINASTERIDE 5 MG TABLET PO (20:49)
[2022-11-13 21:36] LABS: Glucose Point of Care 95 mg/dl (65-105)
[2022-11-14] VITALS (16 sets, daily range): BP systolic 172–206; BP diastolic 46–77; PULSE 62–76; RESP 18–20; TEMP 35.7–36.6; O2SAT 94–100; BMI 10.0
[2022-11-14] MEDS: SODIUM CHLORIDE 0.9% IV 1,000 ML 75 ML IV CONT (02:47)
[2022-11-14] MEDS: hydrALAZINE HCL 20 MG/ML VIAL 10 MG IV PUSH ×2 (05:12→21:22)
[2022-11-14 06:06] LABS: Basophils Absolute Auto 0.1 K/mm3 (0.0-0.1); Basophils Percent Auto 0.9 % (0.2-1.2); Eosinophils Absolute Auto 0.4 K/mm3 (0-0.3); Eosinophils Percent Auto 3.3 % (0-4.4); Hematocrit 35.3 % (42.0-52.0); Hemoglobin 11.3 g/dL (14.0-18.0); Immature Granulocyte Absolute 0.03 K/mm3 (0.00-0.031); Immature Granulocyte Percent A 0.3 % (0-0.5); Lymphocytes Absolute Auto 1.44 K/mm3 (0.9-3.2); Lymphocytes Percent Auto 12.7 % (18.3-44.2); Mean Corpuscular Hemoglobin 32.1 pg (26-34); Mean Corpuscular Volume 100.3 fl (80-100); Mean Platelet Volume 10.6 fl (7.4-10.4); Monocytes Absolute Auto 0.5 K/mm3 (0.1-0.6); Monocytes Percent Auto 4.1 % (2.6-8.5); Neutrophils Percent Auto 78.7 % (45.5-73.1); Platelet Count Result 179 k/mm3 (150-375); Red Blood Count 3.52 M/mm3 (4.6-6.20); Red Cell Distribution Width 13.7 % (11.5-14.5); White Blood Count 11.4 K/mm3 (4.5-10.0)
[2022-11-14 06:18] LABS: Ammonia < 9 umol/L (9-30)
[2022-11-14 06:22] LABS: Alanine Aminotransferase 9 U/L (6-50); Albumin Level 2.9 g/dL (3.5-5.1); Alkaline Phosphatase 50 U/L (38-126); Anion Gap 9 mmol/L (8-16); Aspartate Amino Transferase 16 U/L (17-59); Bilirubin,Total 0.7 mg/dL (0.2-1.3); Blood Urea Nitrogen 28 mg/dL (9-20); Calcium 8.2 mg/dL (8.4-10.2); Carbon Dioxide 21 mmol/L (22-30); Chloride 106 mmol/L (98-107); Estimated CRCL calculation 32 ml/min; Estimated Glomerular Filt Rate 34; Glucose 93 mg/dL (65-110); Potassium 3.6 mmol/L (3.4-5.0); Sodium 136 mmol/L (137-145)
[2022-11-14 07:25] LABS: Folic Acid 8.4 ng/mL (2.76->20)
[2022-11-14 07:37] LABS: Glucose Point of Care 92 mg/dl (65-105)
--- NOTE | 2022-11-14 08:21 | PM.IMPN ---
Progress Note: A&P Assessment and Plan (1) Ischemic stroke: Code(s): I63.9 - Cerebral infarction, unspecified Status: Acute Assessment and Plan: Neurology consulted. CT of the head from 2 days ago with no acute intracranial process. Patient does have history of CVA which cause right-sided weakness. Neurochecks q.4 MRI was ordered on 11/13 but not completed due to lack of information on lower extremity stent. 11/14: Left sided weakness of LUE and LLE with decreased sensation. Stat CT head shows moderate-sized acute to early subacute infarction in the right frontotemporoparietal region. No hemorrhage. I called and notified Dr Greenberg. Started on Plavix, already on ASA and Statin. NIH 13 NPO and added speech evaluation. Patient's said he has been having drooling of fluids out of the corner of his mouth on the right side. Speech is recommending thickened liquids but both patient and refusing and state they understand the risk. Lipid panel ordered for the am. LDL 113. Switched from high dose simvastatin to atorvastatin HgbA1c 6.5% in July/2022 Echo ordered Further rec's from Dr Menendez, -- if there is significant intracranial stenosis on CTA brain/carotid, can do DAPT for 3 months followed by aspirin monotherapy; if there is no significant intracranial stenosis, then there isn't a good indication to continue shelter DAPT from a neurological standpoint (especially with NIH>5), unless there is a cardiac indication. Cardiology spoke with the about Eliquis or Coumadin for anticoagulation given a-fib but due to his high risk of falls the family would like to deter. Will continue with Plavix and ASA for now. (2) Renal failure (ARF), acute on chronic: Qualifiers: Acute renal failure type: unspecified Chronic kidney disease stage: stage 3 (moderate) Chronic kidney disease stage 3 subtype: unspecified whether 3a or 3b Qualified Code(s): N17.9 - Acute kidney failure, unspecified; N18.30 - Chronic kidney disease, stage 3 unspecified Code(s): N17.9 - Acute kidney failure, unspecified; N18.9 - Chronic kidney disease, unspecified Status: Acute Assessment and Plan: BUN and creatinine on admission .4. This appears to be close to patient's baseline Monitor a.m. labs. BUN and creatinine improving with IV fluids Cr today 1.90--down from 2.40 on admission (3) Elevated troponin: Code(s): R77.8 - Other specified abnormalities of plasma proteins Status: Acute Assessment and Plan: On admission patient's troponin was 0.055. Troponin trended down to 0.040 and 0.033. Elevated troponin likely due to the kidney failure. EKG with normal sinus rhythm and PACs. EKG 11/14 after new stroke seen on CT shows junctional rhythm with occasional supraventricular premature complexes, low QRS voltage, moderate intraventricular conduction delay, and non-specific t-wave abnormality. Ordered trops. 0.036-->0.039 (peaked)-->0.036 Cardiology consulted for new a-fib on holter monitor, now with ischemic stroke and EKG with possible accelerated junctional rhythm. Recommendations are appreciated. I called and spoke with Dr Interiano who agrees with tele monitoring for now, no other concerns at this time. ECHO ordered (4) PAF (paroxysmal atrial fibrillation): Code(s): I48.0 - Paroxysmal atrial fibrillation Status: Chronic Assessment and Plan: Patient with history of paroxysmal AFib. Plavix and ASA Patient and declined anticoagulation due to his high risk of falls. (5) Benign hypertension with chronic kidney disease: Code(s): I12.9 - Hypertensive chronic kidney disease with stage 1 through stage 4 chronic kidney disease, or unspecified chronic kidney disease Status: Chronic Assessment and Plan: Continue home medication. Blood pressures have been elevated at 170's--180's Allow for permissive HTN
[2022-11-14] MEDS: ASPIRIN 81 MG ENTERIC TABLET PO (09:06)
[2022-11-14] MEDS: guaiFENesin 12 HR 600 MG TABCR PO ×2 (09:06→20:06)
[2022-11-14] MEDS: amLODIPine BESYLATE 5 MG TABLET PO (09:07)
[2022-11-14] MEDS: PREGABALIN (*CRX) 50 MG CAPSULE PO ×2 (09:07→20:06)
[2022-11-14] MEDS: carvediloL 6.25 MG TABLET PO ×2 (09:09→20:05)
[2022-11-14] MEDS: TOLNAFTATE 1% POWDER 45 GM BTL 1 APPLIC TOPICAL ×2 (09:10→20:07)
[2022-11-14] MEDS: CHOLECALCIFEROL 1,000 UNITS TABLET 2000 UNITS PO (09:10)
[2022-11-14] MEDS: GLIMEPIRIDE 1 MG TABLET PO (09:10)
[2022-11-14 11:31] LABS: Glucose Point of Care 110 mg/dl (65-105)
--- NOTE | 2022-11-14 12:23 | WPDNEURCNPN ---
Consult date: 11/14/22 HPI: Evan Paige is a 82 year old male Admitted to the hospital through the emergency room with the complaints of generalized weakness and falling out of bed in addition to the ongoing history of atrial fibrillation for which he is on full dose of aspirin, does have additional problems of COPD, hyperlipidemia, EMS were called to the scene when patient was found on the ground he was not reportedly unconscious his medications included finasteride 5 mg at night, carvedilol 6.25 mg q.12 hours, Lyrica 75 mg t.i.d. and aspirin 325 mg delayed release daily he is allergic to citalopram, hydrochlorothiazide, and triamterene hydrochlorothiazide, he was found to have abrasion of the left knee in the ER, undergone multiple surgeries as outlined, history of the smoking 50 years 100 smoking pack years but at present former smoker currently alcohol intake or 2 drinks per week in the ER vital signs were stable blood pressure 178/85 CBC normal BMP sodium 136 BUN 30 creatinine 2.4 urine positive for the opiate screening EKG without any atrial fibrillation, admitted to the hospital with the diagnosis of diabetes mellitus, with history of fall underlying dementia hypertension paroxysmal atrial fibrillation and acute on chronic renal failure. [facility] Past Medical History Medical History Abdominal mass Acute cystitis Adult BMI 37.0-37.9 kg/sq m Anxiety disorder, unspecified Atrial fibrillation Benign prostatic hyperplasia (BPH) with straining on urination Benign prostatic hyperplasia with lower urinary tract symptoms Blister of toe BMI 36.0-36.9,adult BMI 38.0-38.9,adult BMI 40.0-44.9, adult BMI over 35 Bronchitis Cerebrovascular accident (CVA) Chest pain Chest pain CHF (congestive heart failure) Chronic bilateral low back pain with bilateral sciatica Chronic fatigue Chronic obstructive pulmonary disease CKD (chronic kidney disease), stage III Congestive heart failure last echo February of 2019 impaired diastolic relaxation grade 1 estimated ejection fraction of 50-55%. COPD (chronic obstructive pulmonary disease) Coronary artery disease (~2018) CVA (cerebral vascular accident) Dementia Diabetes with ulcer of toe Dyspnea Essential (primary) hypertension Excessive sputum Fatigue Gait instability Gout Gout Groin pain Hearing loss History of kidney stones Hordeolum of right eye Hyperlipidemia Hypertension Hypotension Leg pain, bilateral Mixed hyperlipidemia Morbid obesity Neuropathy Obstructive sleep apnea on CPAP GREG on CPAP Osteoarthritis of knees, bilateral Osteoporosis Peripheral arterial disease Peripheral vascular disease Pseudoaneurysm of artery of upper extremity Recurrent UTI Rib pain on left side Skin lump of arm Somnolence TMJ inflammation Type 2 diabetes mellitus Type 2 diabetes mellitus Urinary incontinence Vitamin D deficiency Weakness Wound, open, upper arm Surgical History Surgical History H/O cataract extraction H/O heart artery stent H/O hernia repair H/O inguinal hernia repair History of appendectomy History of bilateral knee replacement History of testicular surgery History of tonsillectomy History of tonsillectomy and adenoidectomy History of total knee replacement History of total left knee replacement History of total right knee replacement History of transurethral resection of prostate Hx of appendectomy Hx of laparoscopic gastric banding S/P TURP Status post cataract extraction of both eyes with insertion of intraocular lens Family History Family History Father Family history of diabetes mellitus in first degree relative Alzheimer's dementia Diabetes mellitus Dementia Grandparent Diabetes mellitus Mother Alzheimer's dementia Sibling No problems noted. Social History Social Histo
--- NOTE | 2022-11-14 13:11 | WPDNEURCNPN ---
Assessment and Plan Assessment and plan (1) Acute left hemiparesis: Code(s): G81.94 - Hemiplegia, unspecified affecting left nondominant side Status: Acute (2) PAF (paroxysmal atrial fibrillation): Code(s): I48.0 - Paroxysmal atrial fibrillation Status: Chronic Plan 1 atrial fibrillation 2 generalized weakness with left-sided deficit 3 Patient is receiving aspirin 81 mg daily will add Plavix 75 mg daily for the next 6 weeks 4. Ongoing dementia for which he has received number memantine 10 mg at night and will be continued as such Consult date: 11/14/22 HPI: Evan Paige is a 82 year old male Admitted to the hospital through the emergency room with complaints of generalized weakness and falling out of bed in addition to the ongoing history of atrial fibrillation for which he is on full-dose of aspirin, does have additional problems of COPD, hyperlipidemia, EMS were called to the scene when patient was found on the ground he was not reportedly unconscious, his medications included finasteride 5 mg at night carvedilol 6.25 mg q.12 hours Lyrica 75 mg t.i.d. and aspirin 325 mg delayed release daily, is allergic to citalopram hydrochlorothiazide and triamterene , he was found to have abrasion of the left knee in the ER, undergone multiple surgeries as outlined, history of the smoking 50 years and 100 smoking pack years but at present former smoker, currently alcohol intake 2 drinks per week i, in the ER vital signs were stable blood pressure was 178/85, CBC normal, BMP with sodium 136 BUN 30 and creatinine 2.4, urine positive for opiates screening, EKG without any atrial fibrillation, admitted to the hospital diagnosis of diabetes mellitus with history of fall and underlying dementia, hypertension, and paroxysmal atrial fibrillation in addition to acute on chronic renal failure. [facility] Past Medical History Medical History Abdominal mass Acute cystitis Adult BMI 37.0-37.9 kg/sq m Anxiety disorder, unspecified Atrial fibrillation Benign prostatic hyperplasia (BPH) with straining on urination Benign prostatic hyperplasia with lower urinary tract symptoms Blister of toe BMI 36.0-36.9,adult BMI 38.0-38.9,adult BMI 40.0-44.9, adult BMI over 35 Bronchitis Cerebrovascular accident (CVA) Chest pain Chest pain CHF (congestive heart failure) Chronic bilateral low back pain with bilateral sciatica Chronic fatigue Chronic obstructive pulmonary disease CKD (chronic kidney disease), stage III Congestive heart failure last echo February of 2019 impaired diastolic relaxation grade 1 estimated ejection fraction of 50-55%. COPD (chronic obstructive pulmonary disease) Coronary artery disease (~2019) CVA (cerebral vascular accident) Dementia Diabetes with ulcer of toe Dyspnea Essential (primary) hypertension Excessive sputum Fatigue Gait instability Gout Gout Groin pain Hearing loss History of kidney stones Hordeolum of right eye Hyperlipidemia Hypertension Hypotension Leg pain, bilateral Mixed hyperlipidemia Morbid obesity Neuropathy Obstructive sleep apnea on CPAP GREG on CPAP Osteoarthritis of knees, bilateral Osteoporosis Peripheral arterial disease Peripheral vascular disease Pseudoaneurysm of artery of upper extremity Recurrent UTI Rib pain on left side Skin lump of arm Somnolence TMJ inflammation Type 2 diabetes mellitus Type 2 diabetes mellitus Urinary incontinence Vitamin D deficiency Weakness Wound, open, upper arm Surgical History Surgical History H/O cataract extraction H/O heart artery stent H/O hernia repair H/O inguinal hernia repair History of appendectomy History of bilateral knee replacement History of testicular surgery History of tonsillectomy History of tonsillectomy and adenoidectomy History of total knee replacement History of total left knee replacement History of total right knee replace
--- NOTE | 2022-11-14 15:51 | ECG_ITS ---
Measurements Intervals [place] Rate: 69 P: -61 VT: 118 QRS: -9 QRSD: 118 T: 74 QT: 434 QTc: 467 Interpretive Statements JUNCTIONAL RHYTHM WITH OCCASIONAL SUPRAVENTRICULAR PREMATURE COMPLEXES LOW QRS VOLTAGE IN PRECORDIAL LEADS [QRS DEFLECTION < 1.0 mV IN CHEST LEADS] MODERATE INTRAVENTRICULAR CONDUCTION DELAY [110+ ms QRS DURATION] NONSPECIFIC T-WAVE ABNORMALITY ABNORMAL RHYTHM ECG COMPARED TO ECG 11/11/2022 03:46:05 JUNCTIONAL RHYTHM NOW PRESENT INTRAVENTRICULAR CONDUCTION DELAY NOW PRESENT Electronically Signed On 11-14-2022 19:24:26 CDT by Dianne Campos M.D.
[2022-11-14 16:30] LABS: Glucose Point of Care 106 mg/dl (65-105)
[2022-11-14] MEDS: cefTRIAXone 2 GM/NS 100 ML 2 GM/100 ML BAG IVPB (17:38)
[2022-11-14 18:15] LABS: NT Pro B Type Natriuretic Pept 3260 pg/mL (19.9-100); Troponin I 0.036 ng/mL (0.000-0.034)
[2022-11-14] MEDS: FINASTERIDE 5 MG TABLET PO (20:04)
[2022-11-14] MEDS: HYDROcodone/acetaminophen (*CRX) 5-325 MG TABLET 1 TAB PO (20:05)
[2022-11-14] MEDS: MEMANTINE 10 MG TABLET PO (20:06)
--- NOTE | 2022-11-14 20:47 | PC.NURSE ---
called ALEJANDRINA Lawrence with critical lab results awaiting call back
[2022-11-14 21:03] LABS: Troponin I 0.039 ng/mL (0.000-0.034)
[2022-11-14 21:03] LABS: Glucose Point of Care 86 mg/dl (65-105)
--- NOTE | 2022-11-14 22:40 | PC.NURSE ---
0.039 thought to be elevated from kidney failure per DINING ROOM SUPERVISOR YADIRA aLwrence.
[2022-11-14 23:59] LABS: Troponin I 0.036 ng/mL (0.000-0.034)
[2022-11-15] VITALS (10 sets, daily range): BP systolic 102–186; BP diastolic 58–116; PULSE 59–76; RESP 18–20; TEMP 35.5–36.1; O2SAT 93–99
--- NOTE | 2022-11-15 | ECHO_ITS ---
Patient Info Name: Evan Paige Age: 82 years : 1940 Gender: Male Ht: 69 in Wt: 236 lbs BSA: 2.32 m2 HR: 76 bpm BP: 102 / 83 mmHg Heart Rhythm: Sinus Rhythm Technical Quality: Poor Exam Date: 11/15/2022 2:12 PM Exam Location: [facility] Card Pulmonary Patient Status: Inpatient Admit Date: 11/13/2022 Staff Ordering Physician: Rima Rodriges APRN Clinical Coder: Evan Cooper RDCS Attending Provider: Mehul Melvin MD Referring Physician: Zahira MOREIRA; Exam Type: CA echo doppler w bubble study Study Info Indications - STROKE Complete two-dimensional, color flow and Doppler transthoracic echocardiogram is performed with agitated saline. Reason for Poor Study: poor echocardiographic windows Summary 1. Technically suboptimal study due to poor sonographic images. 2. Left ventricular chamber dimension is normal. 3. Left ventricular systolic function is normal, estimated at 60-65%. 4. The left ventricular diastolic function is abnormal. 5. E/e' 21 is elevated. 6. The mitral valve has moderately calcified annulus. 7. No pulmonary hypertension, estimated pulmonary arterial systolic pressure is 9 mmHg. Left Ventricle E/e' 21 is elevated. Technically suboptimal study due to poor sonographic images. Left ventricular chamber dimension is normal. Left ventricular systolic function is normal, estimated at 60-65%. The left ventricular diastolic function is abnormal. Right Ventricle Right ventricular chamber dimension is normal. Right ventricular systolic function is normal. Left Atria Left atrial chamber dimension is not well visualized. Right Atria Right atrial chamber dimension is not well visualized. Aortic Valve The aortic valve is not well visualized. Cannot determine number of aortic valve leaflets. There is no aortic valve stenosis based on valve area and gradients. There is no aortic valve regurgitation. Pulmonic Valve The pulmonic valve is not well visualized. There is no pulmonic regurgitation. Mitral Valve The mitral valve has moderately calcified annulus. There is no mitral valve stenosis. There is no mitral valve regurgitation. Tricuspid Valve The tricuspid valve leaflets are not well visualized. There is no tricuspid valve regurgitation. No pulmonary hypertension, estimated pulmonary arterial systolic pressure is 9 mmHg. Pericardium/Pleural There is no pericardial effusion. Inferior Vena Cava Normal inferior vena cava with >50% collapse upon inspiration consistent with normal right atrial pressure, 5 mmHg. Aorta The aortic root size at the sinus of Valsalva is not well visualized. Left Ventricular Outflow Tract Name Value Normal LVOT 2D LVOT Diameter 2.2 cm LVOT Doppler LVOT Peak Gradient 3 mmHg LVOT Mean Gradient 2 mmHg LVOT VTI 20 cm LVOT VTI/AV VTI Ratio 0.6 LVOT Stroke Volume 76 ml LVOT CO 5.9 l/min LVOT CI 2.5 l/min/m2 Pulmonic Valve Name
[2022-11-15 00:45] LABS: Glucose Point of Care 118 mg/dl (65-105)
[2022-11-15] MEDS: DEXTROSE 5% 1,000 ML 1,000 ML 50 ML IVPB (01:45)
[2022-11-15 01:46] LABS: Glucose Point of Care 110 mg/dl (65-105)
[2022-11-15 05:49] LABS: Glucose Point of Care 115 mg/dl (65-105)
[2022-11-15 06:42] LABS: Cholesterol 185 mg/dL (0-200); HDL Direct 34 mg/dL; Triglycerides 135 mg/dL (<150)
[2022-11-15 06:53] LABS: LDL Cholesterol Direct 113 mg/dL
[2022-11-15 07:37] LABS: Glucose Point of Care 107 mg/dl (65-105)
[2022-11-15 08:56] LABS: Basophils Absolute Auto 0.1 K/mm3 (0.0-0.1); Basophils Percent Auto 0.7 % (0.2-1.2); Eosinophils Absolute Auto 0.4 K/mm3 (0-0.3); Eosinophils Percent Auto 3.3 % (0-4.4); Hematocrit 38.9 % (42.0-52.0); Hemoglobin 12.4 g/dL (14.0-18.0); Immature Granulocyte Absolute 0.05 K/mm3 (0.00-0.031); Immature Granulocyte Percent A 0.4 % (0-0.5); Lymphocytes Absolute Auto 1.32 K/mm3 (0.9-3.2); Lymphocytes Percent Auto 11.8 % (18.3-44.2); Mean Corpuscular HGB Conc 31.9 g/dl (32-36); Mean Corpuscular Hemoglobin 31.9 pg (26-34); Mean Platelet Volume 11.9 fl (7.4-10.4); Monocytes Absolute Auto 0.6 K/mm3 (0.1-0.6); Monocytes Percent Auto 5.1 % (2.6-8.5); Neutrophils Absolute Auto 8.8 K/mm3 (1.3-6.7); Neutrophils Percent Auto 78.7 % (45.5-73.1); Platelet Count Result 189 k/mm3 (150-375); Red Blood Count 3.89 M/mm3 (4.6-6.20); Red Cell Distribution Width 13.8 % (11.5-14.5); White Blood Count 11.2 K/mm3 (4.5-10.0)
[2022-11-15 09:08] LABS: Alanine Aminotransferase 10 U/L (6-50); Albumin Level 3.2 g/dL (3.5-5.1); Alkaline Phosphatase 54 U/L (38-126); Anion Gap 10 mmol/L (8-16); Aspartate Amino Transferase 20 U/L (17-59); Bilirubin,Total 0.7 mg/dL (0.2-1.3); Blood Urea Nitrogen 27 mg/dL (9-20); Calcium 8.6 mg/dL (8.4-10.2); Carbon Dioxide 20 mmol/L (22-30); Chloride 106 mmol/L (98-107); Estimated CRCL calculation 36 ml/min; Estimated Glomerular Filt Rate 39; Glucose 117 mg/dL (65-110); Potassium 3.8 mmol/L (3.4-5.0); Sodium 136 mmol/L (137-145)
[2022-11-15] MEDS: ASPIRIN 81 MG ENTERIC TABLET PO (09:52)
[2022-11-15] MEDS: carvediloL 6.25 MG TABLET PO ×2 (09:52→21:57)
[2022-11-15] MEDS: PREGABALIN (*CRX) 50 MG CAPSULE PO ×2 (09:52→21:57)
[2022-11-15] MEDS: guaiFENesin 12 HR 600 MG TABCR PO ×2 (09:52→21:57)
[2022-11-15] MEDS: CHOLECALCIFEROL 1,000 UNITS TABLET 2000 UNITS PO (09:53)
[2022-11-15] MEDS: amLODIPine BESYLATE 5 MG TABLET PO ×2 (09:53→13:02)
[2022-11-15] MEDS: GLIMEPIRIDE 1 MG TABLET PO (09:59)
[2022-11-15] MEDS: CLOPIDOGREL BISULFATE 75 MG TABLET PO (09:59)
--- NOTE | 2022-11-15 10:40 | PM.CNCAR ---
Assessment and Plan Assessment and plan (1) Ischemic stroke: Code(s): I63.9 - Cerebral infarction, unspecified Status: Acute Assessment and Plan: Probably originates from brain itself, but cannot r/o possibility of cardioembolism. On aspirin, and neurology added Plavix. (2) PAF (paroxysmal atrial fibrillation): Code(s): I48.0 - Paroxysmal atrial fibrillation Status: Chronic Assessment and Plan: [id number] 5. Discuss going on anticoagulation such as Eliquis but he has a history of fall risk, and prefers that he is not on anticoagulation for that reason. On aspirin and Plavix now. (3) Essential (primary) hypertension: Code(s): I10 - Essential (primary) hypertension Status: Chronic Assessment and Plan: High but fluctuates. Monitor BP. (4) Mixed hyperlipidemia: Code(s): E78.2 - Mixed hyperlipidemia Status: Acute Assessment and Plan: On Simvastatin. (5) Type 2 diabetes mellitus: Qualifiers: Diabetes mellitus correction insulin use: without termite helper use Diabetes mellitus complication status: without complication Qualified Code(s): E11.9 - Type 2 diabetes mellitus without complications Code(s): E11.9 - Type 2 diabetes mellitus without complications Status: Chronic Assessment and Plan: Manage as per hospitalist. (6) GREG on CPAP: Code(s): G47.33 - Obstructive sleep apnea (adult) (pediatric); Z99.89 - Dependence on other enabling machines and devices Status: Chronic (7) Peripheral arterial disease: Code(s): I73.9 - Peripheral vascular disease, unspecified Status: Acute Assessment and Plan: Stable. History of Present Illness History of Present Illness Consult date/time: 11/15/22 10:40 Reason For Visit: JALYN,Altered Mental Status,Elevated Troponin Narrative: Patient is a 82 yr old man who is my regular cardiology patient presented to ER 4 days ago after slipping on floor from bed. He has a history of PAF, GREG on CPAP, PAD, hypertension, dyslipidemia, DM, COPD, obesity. is at bedside. Reports he was trying to get out of bed but somehow slipped onto floor. He was then brought in to ER. He has expressive aphasia with left sided numbness. Denies chest pain, orthopnea, palpitations, edema. Previously, he came to [place] ER after a fall/syncope in [employer]'s bathroom and thought he had a subdural hemorrhage and transferred to [facility]. He was there for 5 days but was told he did not have a brain bleed but may have had atrial fib. Due to fall risk he was told to take aspirin.? He was then discharged to rehab for 2 months due to leg weakness that is still weak. He walks around house with walker only now due to weakness in legs.? Previously, he had stents placed in bilateral femoral arteries by Dr. Wynne at [place] on 04/26/21. He has ZHENG and fatigue walking 1/2 block with a walker. Normally he has calf pain after walking about 1/2 block especially in both legs and ZHENG. Cardiovascular Procedures: 12/04/[address] Demarco: LAD 20-30% distal stenosis; RCA with mid luminal irregularities. Echo/MUGA:: Echo (EF 50-55%, mod LVH, grade I diastolic dysfunction (E/E' 17), mild biatrial enlargement, mod MAC, mild AI.) - 03/04/2018 Electrophysiology:: 10/22/22 EKG: Sinus rhythm, PAC's, ILBBB. 08/06/22 EKG: Sinus rhythm, frequent PAC's, low voltage in precordial leads, LVH with ST-T changes, prolonged QT interval. 12/20/21 EKG: Sinus rhythm, low voltage in precordial leads, cannot r/o septal infarct, borderline ST-T wave in high lateral leads. 05/09/21 EKG: Sinus rhythm, PAC, low voltage, IVCD. EKG (Sinus rhythm, PVC's,? incomplete LBBB, borderline ST-T wave in lateral leads.) - 03/17/2018 Stress Tests:: 11/18/19 Lexiscan myoview: Mild inferobasilar and mid inferolateral ischemia at margin of larger infarct involving RCA distribution. 12/23/19 ROSAURA: Right ROSAURA unable to occlude vessel, TBI 0.54 is mild PAD;
[2022-11-15] MEDS: polyethylene glycoL 3350 17 GM POWD.PACK PO (10:41)
[2022-11-15] MEDS: TOLNAFTATE 1% POWDER 45 GM BTL 1 APPLIC TOPICAL ×2 (10:49→22:20)
[2022-11-15] MEDS: ACETAMINOPHEN 500 MG TABLET PO (10:53)
--- NOTE | 2022-11-15 11:07 | WPDNEUROPN ---
Progress Note: A&P Assessment and Plan (1) Ischemic stroke: Code(s): I63.9 - Cerebral infarction, unspecified Status: Acute (2) Acute left hemiparesis: Code(s): G81.94 - Hemiplegia, unspecified affecting left nondominant side Status: Acute (3) PAF (paroxysmal atrial fibrillation): Code(s): I48.0 - Paroxysmal atrial fibrillation Status: Chronic Plan Mr. Paige is an 82 year old male with a history of dementia, atrial fibrillation, COPD, hyperlipidemia, GREG, diabetes with peripheral neuropathy, CAD, CKD who presented due to falling out of bed. He was ultimately noted to have left sided weakness during the admission. CT head showed hyposensitivity in the right frontotemporal region, suggesting acute/subacute stroke. He has been started on aspirin and Plavix. Typically in the setting of atrial fibrillation, would recommend anticoagulation for secondary stroke prevention, but it appears that patient has significant fall risk and has elected to forgo anticoagulation at this time (per chart review). His current NIH is >5 - Obtain CTA brain/carotid and surface echocardiogram as part of stroke work-up -- if there is significant intracranial stenosis on CTA brain/carotid, can do DAPT for 3 months followed by aspirin monotherapy; if there is no significant intracranial stenosis, then there isn't a good indication to continue halfway DAPT from a neurological standpoint (especially with NIH>5), unless there is a cardiac indication. - LDL is 113, goal is <70 -- adjust statin accordingly. - Patient is outside window of permissive hypertension, can treat BP more aggressively. Subjective Date/time seen: 11/15/22 11:07 Interval history: Mr. Paige is an 82 year old male with a history of dementia, atrial fibrillation, COPD, hyperlipidemia, GREG, diabetes with peripheral neuropathy, CAD, CKD who presented due to falling out of bed. He was ultimately noted to have left sided weakness during the admission. CT head showed hyposensitivity in the right frontotemporal region, suggesting acute/subacute stroke. He could not get MRI due to history of stents. Carotid doppler study showed <50% stenosis bilatearlly. He was already on aspirin. Dr. Hightower recommended adding on Plavix as well. He already takes Simvastatin 40mg daily as well as Namenda 20mg BID. His LDL from this admission is 113. His last A1c is from July 2022 and was 6.5. Blood pressure has been quite elevated, up to 200s systolic, but mostly hanging around the 180s systolic. Review of Systems Constitutional: Constitutional: Denies chills, Denies fever(s) and Denies weight loss Eyes: Eyes: Denies diplopia and Denies loss of vision ENT: Denies dizziness, Denies hearing loss and Denies tinnitus Cardiovascular: Cardiovascular: Denies chest pain, Denies syncope and Denies dyspnea Respiratory: Respiratory: Denies cough, Denies dyspnea and Denies wheezing Gastrointestinal: Gastrointestinal: Denies abdominal pain, Denies change in bowel habits, Reports constipation and Denies vomiting Genitourinary: Genitourinary: Denies urinary incontinence Musculoskeletal: Musculoskeletal: Denies arthralgias and Denies joint swelling Integumentary/Breasts: Skin/Breast: Denies new lesions and Denies rash Neurologic: Reports as per HPI, Denies dizziness, Denies syncope and Denies loss of vision Psychiatric: Psychiatric: Denies anxiety and Denies depression Endocrine: Endocrine: Reports cold intolerance and Denies heat intolerance Hematologic/Lymphatic: Hematologic/Lymphatic: Denies easy bleeding and Denies easy bruising Allergic/Immunologic: Allergic/Immunologic: Denies no additional allergic/immunologic complaints and Denies wheezing Exam Const: General: comfortable and no acute distress HENMT: Mouth: Yes moist mucous membranes Eyes: Pupils: Equal, round and reactive pupils present EOM: EOMs intact bilaterally Resp: Effort & Inspection: normal respiratory effort Sk
[2022-11-15 11:30] LABS: Glucose Point of Care 118 mg/dl (65-105)
--- NOTE | 2022-11-15 11:45 | PCSTNOTE ---
Please refer to the Bedside Swallow Evaluation in the EMR. Please note, silent aspiration cannot be ruled out at bedside.
--- NOTE | 2022-11-15 15:16 | PHAR ---
HOME MED: STEPHANY AMBRIZSE 2MG SINGLE-DOSE AUTOINJECTOR; INJECT 0.85ML (2mg) SUBQ WEEKLY, TAKE ON WEDNESDAYS. VERIFIED BY PHARMACY. ONE SYRINGE IN BOX SENT TO PHARMACY.
[2022-11-15 15:30] LABS: Appearance Urine Clear (Clear); Bilirubin Urine 1+ (Negative); Blood Urine Trace-intact (Negative); Color Urine Yellow (Yellow); Glucose Urine UA Negative (Negative); Ketones Urine 1+ mg/dL (Negative); Leukocyte Esterase Ur Negative LEU/UL (Negative); Nitrate Urine Negative (Negative); Protein Urine 3+ mg/dL (Negative); Specific Grav Ur 1.025 (1.001-1.035); Urobilinogen Urine 0.2 mg/dL (<2.0); pH Urine 5.5 (5.0-9.0)
[2022-11-15 15:44] LABS: Bacteria Urine None Seen /hpf; Need Manual Microscopic Reviewed; RBC Urine 0-2 /hpf (0-2); Squamous Epithelial Cell Urine Occasional /hpf (Few)
[2022-11-15 15:46] LABS: Add Urine Microscopic? YES
[2022-11-15 16:35] LABS: Glucose Point of Care 106 mg/dl (65-105)
[2022-11-15 21:36] LABS: Glucose Point of Care 112 mg/dl (65-105)
[2022-11-15] MEDS: FINASTERIDE 5 MG TABLET PO (21:57)
[2022-11-15] MEDS: MEMANTINE 10 MG TABLET PO (21:57)
[2022-11-15] MEDS: HYDROcodone/acetaminophen (*CRX) 5-325 MG TABLET 1 TAB PO (22:01)
[2022-11-16] VITALS (7 sets, daily range): BP systolic 126–180; BP diastolic 49–73; PULSE 64–75; RESP 16–18; TEMP 35.6–36.4; O2SAT 96–98
[2022-11-16 06:49] LABS: Basophils Absolute Auto 0.1 K/mm3 (0.0-0.1); Basophils Percent Auto 1.1 % (0.2-1.2); Eosinophils Absolute Auto 0.4 K/mm3 (0-0.3); Eosinophils Percent Auto 4.4 % (0-4.4); Hematocrit 37.2 % (42.0-52.0); Immature Granulocyte Absolute 0.03 K/mm3 (0.00-0.031); Immature Granulocyte Percent A 0.3 % (0-0.5); Lymphocytes Absolute Auto 1.47 K/mm3 (0.9-3.2); Lymphocytes Percent Auto 15.8 % (18.3-44.2); Mean Corpuscular HGB Conc 32.3 g/dl (32-36); Mean Corpuscular Hemoglobin 31.9 pg (26-34); Mean Corpuscular Volume 98.9 fl (80-100); Mean Platelet Volume 11.2 fl (7.4-10.4); Monocytes Absolute Auto 0.6 K/mm3 (0.1-0.6); Neutrophils Absolute Auto 6.7 K/mm3 (1.3-6.7); Neutrophils Percent Auto 72.4 % (45.5-73.1); Platelet Count Result 186 k/mm3 (150-375); Red Blood Count 3.76 M/mm3 (4.6-6.20); Red Cell Distribution Width 13.4 % (11.5-14.5); White Blood Count 9.3 K/mm3 (4.5-10.0)
[2022-11-16 06:52] LABS: Anion Gap 6 mmol/L (8-16); Blood Urea Nitrogen 25 mg/dL (9-20); Calcium 8.6 mg/dL (8.4-10.2); Carbon Dioxide 25 mmol/L (22-30); Chloride 105 mmol/L (98-107); Estimated CRCL calculation 38 ml/min; Estimated Glomerular Filt Rate 42; Glucose 95 mg/dL (65-110); Magnesium 1.8 mg/dL (1.6-2.3); Potassium 3.5 mmol/L (3.4-5.0); Sodium 136 mmol/L (137-145)
[2022-11-16 07:54] LABS: Glucose Point of Care 100 mg/dl (65-105)
--- NOTE | 2022-11-16 08:03 | ECG_ITS ---
Measurements Intervals [place] Rate: 65 P: [place]: 0 QRS: -8 QRSD: 109 T: 156 QT: 440 QTc: 459 Interpretive Statements SUSPECT SINUS RHYTHM WITH VERY LOW VOLTAGE P-WAVES. NONSPECIFIC T-WAVE ABNORMALITY COMPARED TO ECG 11/14/2022 16:17:34 SINUS RHYTHM NOW PRESENT Electronically Signed On 11-16-2022 14:28:58 CDT by Josselyn Rivas M.D.
--- NOTE | 2022-11-16 08:05 | PM.PNCARD ---
Progress Note: A&P Assessment and Plan (1) Ischemic stroke: Code(s): I63.9 - Cerebral infarction, unspecified Status: Acute Assessment and Plan: Probably originates from brain itself, but cannot r/o possibility of cardioembolism. On aspirin, and neurology added Plavix. (2) PAF (paroxysmal atrial fibrillation): Code(s): I48.0 - Paroxysmal atrial fibrillation Status: Chronic Assessment and Plan: [id number] 5 which is high risk for cardioembolism. Discuss going on anticoagulation such as Eliquis but he has a history of fall risk, and prefers that he is not on anticoagulation for that reason. On aspirin and Plavix now. 11/15/22 Echo: EF 60-65%, diastolic dysfunction (E/e' 21), mod MAC. Will discuss with again when she gets to hospital today that patient would benefit from aspirin and Eliquis more than aspirin and Plavix given the information that we have. (3) Essential (primary) hypertension: Code(s): I10 - Essential (primary) hypertension Status: Chronic Assessment and Plan: Improving but fluctuates. Monitor BP. (4) Mixed hyperlipidemia: Code(s): E78.2 - Mixed hyperlipidemia Status: Acute Assessment and Plan: Changed Simvastatin to Atorvastatin 80 mg daily. (5) Type 2 diabetes mellitus: Qualifiers: Diabetes mellitus retirement insulin use: without retirement use Diabetes mellitus complication status: without complication Qualified Code(s): E11.9 - Type 2 diabetes mellitus without complications Code(s): E11.9 - Type 2 diabetes mellitus without complications Status: Chronic Assessment and Plan: Manage as per hospitalist. (6) GREG on CPAP: Code(s): G47.33 - Obstructive sleep apnea (adult) (pediatric); Z99.89 - Dependence on other enabling machines and devices Status: Chronic (7) Peripheral arterial disease: Code(s): I73.9 - Peripheral vascular disease, unspecified Status: Acute Assessment and Plan: Stable. Subjective Date/time seen: 11/16/22 08:05 Interval history: Reports feeling cold, he is under a thick blanket now. No chest pain or sob. Exam Const: General: cooperative and alert Orientation/consciousness: oriented to person, oriented to place and oriented to time Resp: Auscultation: clear to auscultation bilaterally, no crackles, no rales, no rhonchi and no wheezes Cardio: Rate: regular rate Rhythm: abnormal rhythm Heart sounds: no murmurs Peripheral pulses: dorsalis pedis present Neuro: General: oriented to person, oriented to place and oriented to time Extrem: Right lower extremity: no edema Left lower extremity: no edema Objective Data Vital Signs Vital Signs: Vital Signs - 24 hr 11/15/22 09:52 11/15/22 11:34 11/15/22 12:00 Temperature Pulse Rate 64 61 Respiratory Rate Blood Pressure Pulse Oximetry Oxygen Delivery Room Air 11/15/22 12:00 11/15/22 16:00 11/15/22 16:00 Temperature 96.7 F L 96.9 F L Pulse Rate 65 59 L 65 Respiratory Rate 18 18 Blood Pressure 167/58 H 171/116 H Pulse Oximetry 98 99 Oxygen Delivery 11/15/22 20:00 11/15/22 20:30 11/16/22 00:00 Temperature 96.5 F L 97.6 F Pulse Rate 76 71 72 Respiratory Rate 18 18 Blood Pressure 139/79 149/73 H Pulse Oximetry 97 98 Oxygen Delivery 11/16/22 00:00 11/16/22 04:00 11/16/22 04:00 Temperature 96.1 F L Pulse Rate 75 65 66 Respiratory Rate 16 Blood Pressure 126/56 L Pulse Oximetry 97 Oxygen Delivery Intake/Output Intake/Output: Intake & Output 11/13/22 11/14/22 11/15/22 11/16/22 23:59 23:59 23:59 23:59 Intake Total 3140 420 170 100 Output Total 600 600 700 Balance 9820 180 -530 100 Meds/Results Medications: Active Medications Generic Name Dose Route Start Last Admin Trade Name Freq PRN Reason Stop Dose Admin Acetaminophen 500 mg 11/14/22 11:05 11/15/22 10:53 Acetaminophen 500 Mg Tablet PO 500
[2022-11-16] MEDS: amLODIPine BESYLATE 5 MG TABLET 10 MG PO (09:02)
[2022-11-16] MEDS: carvediloL 6.25 MG TABLET PO (09:03)
[2022-11-16] MEDS: ATORVASTATIN 40 MG TABLET 80 MG PO (09:03)
[2022-11-16] MEDS: ASPIRIN 81 MG ENTERIC TABLET PO (09:03)
[2022-11-16] MEDS: CLOPIDOGREL BISULFATE 75 MG TABLET PO (09:04)
[2022-11-16] MEDS: CHOLECALCIFEROL 1,000 UNITS TABLET 2000 UNITS PO (09:04)
[2022-11-16] MEDS: GLIMEPIRIDE 1 MG TABLET PO (09:04)
[2022-11-16] MEDS: PREGABALIN (*CRX) 50 MG CAPSULE PO (09:05)
[2022-11-16] MEDS: guaiFENesin 12 HR 600 MG TABCR PO (09:05)
[2022-11-16] MEDS: TOLNAFTATE 1% POWDER 45 GM BTL 1 APPLIC TOPICAL (09:06)
[2022-11-16 11:33] LABS: Glucose Point of Care 110 mg/dl (65-105)
--- NOTE | 2022-11-16 12:18 | PM.IMPN ---
Progress Note: A&P Assessment and Plan (1) Ischemic stroke: Code(s): I63.9 - Cerebral infarction, unspecified Status: Acute Assessment and Plan: Neurology consulted. CT of the head from 2 days ago with no acute intracranial process. Patient does have history of CVA which cause right-sided weakness. Neurochecks q.4 MRI was ordered on 11/13 but not completed due to lack of information on lower extremity stent. 11/14: Left sided weakness of LUE and LLE with decreased sensation. Stat CT head shows moderate-sized acute to early subacute infarction in the right frontotemporoparietal region. No hemorrhage. I called and notified Dr Greenberg. Started on Plavix, already on ASA and Statin. NIH 13 NPO and added speech evaluation. Patient's said he has been having drooling of fluids out of the corner of his mouth on the right side. Speech is recommending thickened liquids but both patient and refusing and state they understand the risk. Lipid panel ordered for the am. LDL 113. Switched from high dose simvastatin to atorvastatin HgbA1c 6.5% in July/2022 Echo ordered Further rec's from Dr Menendez, -- if there is significant intracranial stenosis on CTA brain/carotid, can do DAPT for 3 months followed by aspirin monotherapy; if there is no significant intracranial stenosis, then there isn't a good indication to continue half-way DAPT from a neurological standpoint (especially with NIH>5), unless there is a cardiac indication. Cardiology spoke with the about Eliquis or Coumadin for anticoagulation given a-fib but due to his high risk of falls the family would like to deter. Will continue with Plavix and ASA for now. 11/16- had spoken with Dr Rg this morning and was in agreement for eliquis however, now she has decided she does not want to pursue treatment with eliquis. I have reached out to Dr Rg to notify of the change. I also spoke with Dr Menendez who says that if the patient stays on ASA and plavix rather than transitioning to eliquis, then the head CTA is not needed. Awaiting confirmation with Dr Rg on course of action. (2) Renal failure (ARF), acute on chronic: Qualifiers: Acute renal failure type: unspecified Chronic kidney disease stage: stage 3 (moderate) Chronic kidney disease stage 3 subtype: unspecified whether 3a or 3b Qualified Code(s): N17.9 - Acute kidney failure, unspecified; N18.30 - Chronic kidney disease, stage 3 unspecified Code(s): N17.9 - Acute kidney failure, unspecified; N18.9 - Chronic kidney disease, unspecified Status: Acute Assessment and Plan: BUN and creatinine on admission 30/2.4. This appears to be close to patient's baseline Monitor a.m. labs. BUN and creatinine improving with IV fluids Cr today 1.90--down from 2.40 on admission (3) Elevated troponin: Code(s): R77.8 - Other specified abnormalities of plasma proteins Status: Acute Assessment and Plan: On admission patient's troponin was 0.055. Troponin trended down to 0.040 and 0.033. Elevated troponin likely due to the kidney failure. EKG with normal sinus rhythm and PACs. EKG 11/14 after new stroke seen on CT shows junctional rhythm with occasional supraventricular premature complexes, low QRS voltage, moderate intraventricular conduction delay, and non-specific t-wave abnormality. Ordered trops. 0.036-->0.039 (peaked)-->0.036 Cardiology consulted for new a-fib on holter monitor, now with ischemic stroke and EKG with possible accelerated junctional rhythm. Recommendations are appreciated. I called and spoke with Dr Interiano who agrees with tele monitoring for now, no other concerns at this time. ECHO ordered (4) PAF (paroxysmal atrial fibrillation): Code(s): I48.0 - Paroxysmal atrial fibrillation Status: Chronic Assessment and Plan: Patient with history of paroxysmal AFib. Plavix and ASA Patient and decl
--- NOTE | 2022-11-16 13:35 | PM.DS ---
DS: Admitting Diagnosis Discharge Date 11/16 Admitting Diagnosis Fall DS: Discharge Diagnosis Discharge Diagnosis (1) Ischemic stroke: Code(s): I63.9 - Cerebral infarction, unspecified Status: Acute Assessment and Plan: Neurology consulted. CT of the head from 2 days ago with no acute intracranial process. Patient does have history of CVA which cause right-sided weakness. Neurochecks q.4 MRI was ordered on 11/13 but not completed due to lack of information on lower extremity stent. 11/14: Left sided weakness of LUE and LLE with decreased sensation. Stat CT head shows moderate-sized acute to early subacute infarction in the right frontotemporoparietal region. No hemorrhage. I called and notified Dr Greenberg. Started on Plavix, already on ASA and Statin. NIH 13 NPO and added speech evaluation. Patient's said he has been having drooling of fluids out of the corner of his mouth on the right side. Speech is recommending thickened liquids but both patient and refusing and state they understand the risk. Lipid panel ordered for the am. LDL 113. Switched from high dose simvastatin to atorvastatin HgbA1c 6.5% in July/2022 Echo ordered Further rec's from Dr Menendez, -- if there is significant intracranial stenosis on CTA brain/carotid, can do DAPT for 3 months followed by aspirin monotherapy; if there is no significant intracranial stenosis, then there isn't a good indication to continue long term care pharmacist DAPT from a neurological standpoint (especially with NIH>5), unless there is a cardiac indication. Cardiology spoke with the about Eliquis or Coumadin for anticoagulation given a-fib but due to his high risk of falls the family would like to deter. Will continue with Plavix and ASA for now. 11/16- had spoken with Dr Rg this morning and was in agreement for eliquis however, now she has decided she does not want to pursue treatment with eliquis. I have reached out to Dr Rg to notify of the change. I also spoke with Dr Menendez who says that if the patient stays on ASA and plavix rather than transitioning to eliquis, then the head CTA is not needed. Awaiting confirmation with Dr Rg on course of action. (2) Renal failure (ARF), acute on chronic: Qualifiers: Acute renal failure type: unspecified Chronic kidney disease stage: stage 3 (moderate) Chronic kidney disease stage 3 subtype: unspecified whether 3a or 3b Qualified Code(s): N17.9 - Acute kidney failure, unspecified; N18.30 - Chronic kidney disease, stage 3 unspecified Code(s): N17.9 - Acute kidney failure, unspecified; N18.9 - Chronic kidney disease, unspecified Status: Acute Assessment and Plan: BUN and creatinine on admission 30/2.4. This appears to be close to patient's baseline Monitor a.m. labs. BUN and creatinine improving with IV fluids Cr today 1.90--down from 2.40 on admission (3) Elevated troponin: Code(s): R77.8 - Other specified abnormalities of plasma proteins Status: Acute Assessment and Plan: On admission patient's troponin was 0.055. Troponin trended down to 0.040 and 0.033. Elevated troponin likely due to the kidney failure. EKG with normal sinus rhythm and PACs. EKG 11/14 after new stroke seen on CT shows junctional rhythm with occasional supraventricular premature complexes, low QRS voltage, moderate intraventricular conduction delay, and non-specific t-wave abnormality. Ordered trops. 0.036-->0.039 (peaked)-->0.036 Cardiology consulted for new a-fib on holter monitor, now with ischemic stroke and EKG with possible accelerated junctional rhythm. Recommendations are appreciated. I called and spoke with Dr Interiano who agrees with tele monitoring for now, no other concerns at this time. ECHO ordered (4) PAF (paroxysmal atrial fibrillation): Code(s): I48.0 - Paroxysmal atrial fibrillation Status: Chronic Assessment and Plan: Oneil
[2022-11-16] MEDS: BISACODYL 10 MG SUPPOSITORY RECTAL (14:32)
[2022-11-16 16:37] LABS: Glucose Point of Care 90 mg/dl (65-105)
== END 2022-11-16 17:05 | DRG 65 ==
LOC: ANHED 07:26 → ANHIMU 08:23 → ANH3MEDSUR 11-12 11:33
PROVIDERS: Internal Medicine Critical Care Medicine; Admitting Provider Internal Medicine; Emergency Provider Preventive Medicine Aerospace Medicine; PCP Family Medicine; Visit Provider Nurse Practitioner Acute Care
DX: I63.9 Cerebral infarction, unspecified (principal); E11.52 Type 2 diabetes mellitus with diabetic peripheral angiopathy with gangrene; N17.9 Acute kidney failure, unspecified; I13.0 Hypertensive heart and chronic kidney disease with heart failure and stage 1 through stage 4 chronic kidney disease, or unspecified chronic kidney disease; I69.351 Hemiplegia and hemiparesis following cerebral infarction affecting right dominant side; G81.94 Hemiplegia, unspecified affecting left nondominant side; R29.713 NIHSS score 13; S80.212A Abrasion, left knee, initial encounter; W06.XXXA Fall from bed, initial encounter; E11.22 Type 2 diabetes mellitus with diabetic chronic kidney disease; E78.2 Mixed hyperlipidemia; E66.01 Morbid (severe) obesity due to excess calories; E11.42 Type 2 diabetes mellitus with diabetic polyneuropathy; E55.9 Vitamin D deficiency, unspecified; E11.51 Type 2 diabetes mellitus with diabetic peripheral angiopathy without gangrene; F03.90 Unspecified dementia, unspecified severity, without behavioral disturbance, psychotic disturbance, mood disturbance, and anxiety; G47.33 Obstructive sleep apnea (adult) (pediatric); G89.29 Other chronic pain; I48.0 Paroxysmal atrial fibrillation; I50.9 Heart failure, unspecified; I25.10 Atherosclerotic heart disease of native coronary artery without angina pectoris; J44.9 Chronic obstructive pulmonary disease, unspecified; M81.0 Age-related osteoporosis without current pathological fracture; M10.9 Gout, unspecified; M54.42 Lumbago with sciatica, left side; M54.41 Lumbago with sciatica, right side; N40.1 Benign prostatic hyperplasia with lower urinary tract symptoms; R30.0 Dysuria; N18.30 Chronic kidney disease, stage 3 unspecified; Z95.5 Presence of coronary angioplasty implant and graft; Z23 Encounter for immunization; Z99.89 Dependence on other enabling machines and devices; Z98.49 Cataract extraction status, unspecified eye; Z68.35 Body mass index [BMI] 35.0-35.9, adult; Z90.49 Acquired absence of other specified parts of digestive tract; Z96.653 Presence of artificial knee joint, bilateral; Z98.41 Cataract extraction status, right eye; Z98.42 Cataract extraction status, left eye; Z96.1 Presence of intraocular lens; Z79.84 Long term (current) use of oral hypoglycemic drugs; Z79.82 Long term (current) use of aspirin; Z87.891 Personal history of nicotine dependence; Z95.828 Presence of other vascular implants and grafts
CPT/HCPCS: 36415; 70450; 71045; 80048; 80053; 80061; 80307; 81001; 82140; 82607; 82746; 82948; 83735; 83880; 84145; 84443; 84484; 85025; 85027; 86140; 87086; 90471; 90694; 92610; 93005; 93306; 93880; 96361; 96374; 96375; 96376; 97110; 97161; 97162; 97165; 97167; 97530; 97535; 99285; A9270; G0008; G0378; J0360; J0696; J7030; J7070